=== PATIENT | female | born 1970 | race Caucasian/White ===

== ENCOUNTER 2020-08-29 14:12 | Outpatient (CLI) | payer MEDICAID, SELFPAY ==
--- NOTE | 2020-08-29 14:26 | CT_ITS ---
WS: [id number] TECHNIQUE: Noncontrast CT right hip with coronal and sagittal reformatted images. CLINICAL INFORMATION: RIGHT HIP PAIN COMPARISON: None. DLP: 811.[address] scans at [facility] use at least one of these dose optimization techniques: automat ed exposure control; mA and/or kV adjustment per patient size (includes targeted exams where dose is matched to clinical indication); or iterative reconstruction. FINDINGS: Advanced degenerative arthritis right hip with subchondral cystic change. Subchondral cystic change a nd sclerosis involving the anterosuperior femoral head and adjacent acetabulum. Hypertrophic spurring along the superior and inferior acetabulum. Complete loss of the joint space with [id number] artic ulation. Hypertrophic spurring along the femoral neck. Proximal femoral shaft appears normal. Again s een is the single acetabular fixation screw traversing the acetabulum and abutting the posterior femo ral head. Osteopenia. Normal visualized soft tissues. CT/CT hip RT wo con* [id number] IMPRESSION: 1. Advanced degenerative arthritis right hip with [id number] articulation an d subchondral cystic changes. 2. Again seen is the single fixation screw across the acetabulum abutting the posterior superior femoral head. 3. Normal visualized right pubic rami and proximal femoral shaft.
== END 2020-08-29 14:13 | disposition home or self-care (01) ==
LOC: RADWPI 14:14
PROVIDERS: PCP Physician Assistant; Visit Provider Physician Assistant
DX: M16.11 Unilateral primary osteoarthritis, right hip (principal)
CPT/HCPCS: 73700

== ENCOUNTER 2020-08-29 14:15 | Outpatient (CLI) | payer MEDICAID, SELFPAY ==
--- NOTE | 2020-08-29 14:25 | CT_ITS ---
WS: [id number] CT NECK TECHNIQUE: Contrast-enhanced CT of the neck with coronal and sagittal reformatted images. CLINICAL INFORMATION: NEOPLASM OF UNCERTAIN BEHAVIOR OF LARYNX COMPARISON: None. DLP: 1510.[address] scans at [facility] use at least one of these dose optimization techniques: automat ed exposure control; mA and/or kV adjustment per patient size (includes targeted exams where dose is matched to clinical indication); or iterative reconstruction. FINDINGS: Parotid glands are normal in appearance. Normal submandibular glands. Normal posterior nasopharynx an d parapharyngeal fat. Tongue base appears normal. No evidence of supraglottic or glottic mass. Subglo ttic airway is patent. Normal thyroid gland. Benign sole skiver muscle hypertrophy. No cervical lympha denopathy. Slightly prominent left greater than right jugulodigastric lymph nodes within normal limit s. Moderate spondylitic changes cervical spine. No cervical lymphadenopathy. No evidence of neck mass or drainable fluid collection. Partially visualized lung apices are normal. Partially visualized intracranial contents are normal. Paranasal sinuses and mastoid air cells well aerated. CT/CT neck w con* [id number] IMPRESSION: 1. Salivary glands are normal. 2. No cervical lymphadenopathy. 3. No evidence of supraglottic or glottic mass. Subglottic airway is normal. 4. Moderate spondylitic changes cervical spine. 5. Paranasal sinuses and mastoid air cells are well aerated.
[2020-08-29] MEDS: iohexol 300 mg/mL 100 mL Btl IV (14:44)
== END 2020-08-29 14:16 | disposition home or self-care (01) ==
LOC: RADWPI 14:16
PROVIDERS: PCP Physician Assistant; Visit Provider Otolaryngology
DX: D38.0 Neoplasm of uncertain behavior of larynx (principal)
CPT/HCPCS: 70491; Q9967

== ENCOUNTER 2021-01-11 15:48 | Outpatient (CLI) | payer MEDICAID, SELFPAY ==
--- NOTE | 2021-01-11 16:26 | ECG_ITS ---
[facility] Test Date: 2021-01-11 Pat Name: Celine Funes Department: Room: Gender: Female Heel Caser: : 1970 Requested By: Craig Shetty Order Number: [id number] Angie MD: Charlene Montoya M.D. Measurements Intervals [place] Rate: 75 P: 40 ND: 135 QRS: 15 QRSD: 92 T: 6 QT: 375 QTc: 419 Interpretive Statements SINUS RHYTHM WITH SINUS ARRHYTHMIA LOW QRS VOLTAGE IN PRECORDIAL LEADS [QRS DEFLECTION < 1.0 mV IN CHEST LEADS] No previous ECG available for comparison Electronically Signed On 01-13-2021 12:23:51 CDT by Charlene Montoya M.D. [id number]
[2021-01-11 16:51] LABS: Basophils # 0.1 10^3/uL (0.0-0.1); Basophils % 0.9 %; Eosinophils # 0.2 10^3/uL (0.0-0.8); Eosinophils % 1.9 %; Hemoglobin 14.5 g/dL (11.5-15.3); Lymphocytes # 3.6 10^3/uL (0.8-4.8); Lymphocytes % 44.2 %; Mean Corpuscular HGB Conc 32.2 g/dL (30.0-36.0); Mean Corpuscular Hemoglobin 30.5 pg (28.0-34.0); Mean Corpuscular Volume 94.5 fL (81-99); Mean Platelet Volume 9.2 fL (7.4-10.4); Monocytes # 0.5 10^3/uL (0.2-0.9); Neutrophils # 3.85 10^3/uL (1.8-7.7); Neutrophils % 46.8 %; Nucleated Red Blood Cells % 0 %; Platelet Count 310 10^3/cmm (130-400); Red Blood Count 4.76 10^6/uL (4.1-5.3); Red Cell Distribution Width 12.6 % (12.1-15.1); White Blood Count 8.2 10^3/uL (4.0-10.0)
[2021-01-11 17:19] LABS: Anion Gap 10.3 (5-19); Blood Urea Nitrogen 8 mg/dL (6-20); Calcium 8.5 mg/dL (8.5-10.5); Carbon Dioxide 30 mmol/L (22-29); Chloride 105 mmol/L (98-107); Glomerular Filtration Rate 87.9 mL/min (90-130); Glucose 95 mg/dL (65-115); Osmolality Calculated 290 mOsm/kg (285-295); Potassium 4.3 mmol/L (3.5-5.1); Sodium 141 mmol/L (136-145)
== END 2021-01-11 15:49 | disposition home or self-care (01) ==
PROVIDERS: PCP Physician Assistant; Visit Provider Specialist
DX: R49.0 Dysphonia (principal)
CPT/HCPCS: 36415; 80048; 85025; 93005

== ENCOUNTER → 2021-07-02 14:26 | Outpatient (BNVA) | payer MEDICAID, SELFPAY | PROVIDERS: PCP Physician Assistant; Referring Provider Physician Assistant; Visit Provider Orthopaedic Surgery | DX: M54.50 Low back pain, unspecified (principal); M43.17 Spondylolisthesis, lumbosacral region | CPT/HCPCS: 72110 ==

== ENCOUNTER 2021-08-28 13:16 | Outpatient (CLI) | payer MEDICAID, SELFPAY ==
--- NOTE | 2021-08-28 13:22 | MR_ITS ---
WS: [id number] MRI LUMBAR SPINE NONCONTRAST HISTORY: SPONDYLOLISTHESIS LUMBOSACRAL Region; pain COMPARISON: 07/16/2016 TECHNIQUE: Sagittal and axial multisequence imaging is submitted. Reversal the normal cervical lordosis encroaching upon the central cervical canal at the C4 level res ulting in mild central stenosis. L5 anterolisthesis by 10 mm similar to the prior examination. Severe disc space narrowing and desicca tion at L5-S1. The remaining disc spaces are well-maintained. No marrow edema. Conus terminates normally at T12. L1-L2: Normal. L2-L3: Mild bilateral facet joint arthritis. No stenosis. L3-L4: Mild bilateral facet joint arthritis and ligamentum flavum hypertrophy. L4-L5: Mild bilateral facet joint arthritis and ligamentum flavum hypertrophy. L5-S1: Unroofing of the L5-S1 disc by anterolisthesis of L5. Patulous central canal. Severe narrowing of the neural foramen bilaterally but greatest on the RIGHT. Complete effacement of fat in the neura l foramen. There is disc contacting and encroachment upon the L5 nerve roots bilaterally. Paravertebral soft tissues are normal. There is a bulbous appearance to the fundus of the uterus with the endometrium disc being displaced. I suspect there could be a fibroid present towards the fundus of the uterus. This should be further evaluated by ultrasound. MR/MR lumbar spine wo con* [id number] IMPRESSION: 1. Grade 2 spondylolisthesis of L5 with severe bilateral foraminal stenosis, R IGHT greater than LEFT. Similar to the prior examination. Significant encroachm ent upon the L5 nerve roots. 2. Bulbous appearance to the fundus of the uterus and displacement of the endo metrium. Suspect there probably is a fibroid present. Recommend transvaginal pe lvic ultrasound evaluation.
== END 2021-08-28 13:17 | disposition home or self-care (01) ==
LOC: RADSHAW 13:20
PROVIDERS: PCP Physician Assistant; Visit Provider Orthopaedic Surgery
DX: M43.17 Spondylolisthesis, lumbosacral region (principal)
CPT/HCPCS: 72148

== ENCOUNTER → 2022-01-30 13:27 | Outpatient (BNVA) | payer MEDICAID, SELFPAY | PROVIDERS: PCP Family Medicine; Visit Provider Internal Medicine Pulmonary Disease | DX: R06.00 Dyspnea, unspecified (principal); Z71.6 Tobacco abuse counseling; R49.0 Dysphonia; J35.1 Hypertrophy of tonsils; F17.210 Nicotine dependence, cigarettes, uncomplicated; I10 Essential (primary) hypertension; E11.8 Type 2 diabetes mellitus with unspecified complications | CPT/HCPCS: 99204 ==

== ENCOUNTER 2022-03-12 13:22 | Outpatient (CLI) | payer MEDICAID, SELFPAY ==
--- NOTE | 2022-03-12 14:10 | PFTS_ITS ---
Date of Study:03/12/22 Date of Dictation: MECHANICS: Forced vital capacity (FVC) is normal. Forced expiratory volume in one second (FEV1) is normal. FEV1/FVC is . FLOW VOLUME LOOP: There is no peak flow in the forced expiratory maneuver. LUNG VOLUMES: Total lung capacity (TLC) is increased. Residual volume (RV) is increased. DIFFUSING CAPACITY FOR CARBON MONOXIDE: Normal. INTERPRETATION: The postbronchodilator spirometry is normal. There is a significant postbronchodilator response. Lung volumes are consistent with hyperinflation and air trapping. Gas exchange (DLCO) is normal. MTDD
== END 2022-03-12 13:23 | disposition home or self-care (01) ==
LOC: RT 13:22
PROVIDERS: PCP Family Medicine; Visit Provider Internal Medicine Pulmonary Disease
DX: R06.00 Dyspnea, unspecified (principal); F17.210 Nicotine dependence, cigarettes, uncomplicated
CPT/HCPCS: 94060; 94618; 94726; 94729; J7614

== ENCOUNTER 2022-03-25 19:54 | Emergency (ER) | payer MEDICAID, SELFPAY ==
--- NOTE | 2022-03-25 19:56 | ED_ITS ---
HPI - SOB/Dyspnea General: Chief Complaint: Shortness of Breath/Dyspnea Stated Complaint: SOB Time Seen by Provider: 03/25/22 19:55 History of Present Illness: HPI Narrative: Ms. Funes is a 51-year-old lady with history of anxiety, COPD, hypertension, obesity, sleep apnea, diabetes, arthritis who presents to the emergency department due to shortness of breath and hoarse voice. She recently had PFTs which demonstrated increased TLC and residual volume. She endorses 3 to 4 days of worsening respiratory symptoms including cough, reflux sensation, and generalized malaise. Denies associated fevers. Cough has been nonproductive and she describes an uncomfortable bronchial sensation. She previously has seen ENT and is awaiting referral to outside facility for possible vocal cord/laryngeal dysfunction. Overall course of symptoms has persisted. I ntensity is moderate. No other specific changes in health, exacerbating, or alleviating factors identified. Onset (ago): day(s) Severity: moderate Exacerbating factors: exertion Known history of: COPD Associated symptoms: Reports cough and other Review of Systems General: Reports: 10 or more systems reviewed and unremarkable except in HPI and below PFSH ED PFSH: Medical History COPD (chronic obstructive pulmonary disease) Hemoptysis Sleep apnea Family History Mother Cushings syndrome Grandmother Cancer maternal grandmother; breast Social History Smoking and tobacco status: current every day smoker Physical Exam Const: COMMON NORMALS: alert GENERAL APPEARANCE: cooperative and well developed HENMT: COMMON NORMALS: normocephalic, atraumatic and oropharynx normal HEAD & SCALP: normocephalic and atraumatic Eye: COMMON NORMALS: conjunctivae normal CONJUNCTIVA: Yes conjunctivae normal SCLERA: sclerae normal Neck/C-Spine: COMMON NORMALS: supple GENERAL: Yes trachea midline Resp: EFFORT & INSPECTION: Yes able to speak in complete sentences and Yes tachypneic AUSCULTATION: diminished lung sounds Cardio: COMMON NORMALS: regular rate and regular rhythm RATE: regular rate RHYTHM: regular rhythm GI: COMMON NORMALS: Soft to palpation PALPATION: Yes Soft to palpation and No Tenderness to palpation present (GI) Extremity: GENERAL: Yes normal exam except as noted and No edema Neuro: COMMON NORMALS: moves all extremities SENSORIUM/ORIENTATION: Yes alert and No Orientation impaired Psych: COMMON NORMALS: mental status grossly normal and Normal thought process present THOUGHT PROCESS: Normal thought process present Course ED course: - Patient was seen and evaluated by me at bedside - Patient placed on cardiac monitors, IV access obtained - Initial evaluation notable for exam as above, nontoxic appearance, room air - Labs and xrays personally interpreted by me. EKG with sinus rhythm and multiple ST segment antibodies. -RT treatment, fluids, COPD exacerbation medications ordered - Labs notable for mild leukocytosis and hemoconcentration. ABG with compensated mild hypercapnia and hypoxemia. No acute electrolyte or metabolic derangements. Flu and COVID negative. - Imaging notable for pneumothorax lobar consolidation - Upon serial reexamination after treatment the patient was improved - Based on patient history, evaluation, and testing as interpreted the most likely cause of the patient's condition is bronchitis/COPD exacerbation. Low risk by heart score and more likely explaination felt to be COPD. - The results of ED evaluation were discussed with the patient including prescriptions and/or symptomatic cares (if applicable) including appropriate and responsible use, followup plan, and return precautions. The patient verbalized understanding and felt safe for discharge. - Patient discharged in satisfactory condition. Note: Click bubbles or prepopulated chambers in note writing are used for assistance with data collection and billing and are inherently more limited than narrative and other text portions of this note. Please use narrative for additional cl inical history and defer to narrative/free test for any case of contradictory information. If information appears in only free text or click bubble it should be considered present or absent as reported. Please contact note typewriter operator automatic for clarifications of clinical information or contradictory information. MDM is a brief summary, contradictory or erroneous seeming information should be clarified and full note should be reviewed. Vital Signs: Vital signs: Vital Signs Temperature 98.7 F 03/25/22 23:41 Pulse Rate 78 03/25/22 23:41 Respiratory Rate 20 H 03/25/22 23:41 Blood Pressure 116/66 03/25/22 23:41 Pulse Oximetry 95 03/25/22 23:41 Oxygen Delivery Md thod 03/25/22 20:35 MDM - SOB/Dyspnea Medical Decision Making 52-year lady presenting with cough and chest discomfort. Patient has history of COPD. Improved with treatment. Satisfactory for outpatient management of bronchitis/COPD exacerbation. Medical Records I reviewed the patient's medical records. Lab Data I reviewed the patient's lab results. : 03/25/22 20:02 03/25/22 20:02 Labs/Radiology: Radiology Impressions Chest X-Ray 03/25/22 20:28 IMPRESSION: No acute findings. Laboratory Results WBC 11.0 10^3/uL (4.0-10.0) H 03/25/22 20:02 RBC 5.15 10^6/uL (4.1-5.3) 03/25/22 20:02 Hgb 15.5 g/dL (11.5-15.3) H 03/25/22 20: Hct 46.3 % (37.0-47.0) 03/25/22 20: MCV 89.9 fl (81-99) 03/25/22 20: MCH 30.1 pg (28.0-34.0) 03/25/22 20: MCHC 33.5 g/dL (30.0-36.0) 03/25/22 20: RDW 12.5 % (12.1-15.1) 03/25/22 20: Plt Count 317 10^3/cmm (130-400) 03/25/22 20: MPV 9.9 fL (7.4-10.4) 03/25/22 20:02 Neut % (Auto) 45.3 % 03/25/22 20: Lymph % (Auto) 45.6 % 03/25/22 20: Gregg % (Auto) 6.2 % 03/25/22 20: Eos % (Auto) 1.8 % 03/25/22 20: Baso % (Auto) 0.9 % 03/25/22 20:02 Neut # (Auto) 5.00 10^3/uL (1.8-7.7) 03/25/22 20: Lymph # (Auto) 5.0 10^3/uL (0.8-4.8) H 03/25/22 20:02 Gregg # (Auto) 0.7 10^3/uL (0.2-0.9) 03/25/22 20:02 Eos # (Auto) 0.2 10^3/uL (0.0-0.8) 03/25/22 20:02 Baso # (Auto) 0.1 10^3/uL (0.0-0.1) 03/25/22 20:02 Nucleated RBC % (auto) 0 % 03/25/22 20:02 Nucleated RBCs # 0.0 /100WBC 03/25/22 20:02 Specimen Type Arterial 03/25/22 23:01 Sample Site Brachial, right 03/25/22 23:01 ABG pH 7.38 (7.35-7.45) 03/25/22 23:01 ABG pCO2 47.3 mmHg (35-45) H 03/25/22 23:01 ABG pO2 69.5 mmHg (80.0-100.0) L 03/25/22 23:01 ABG HCO3 28.0 mmol/L (22-26) H 03/25/22 23:01 ABG Base Excess 2.1 mmol/L (-2.0-2.0) H 03/25/22 23:01 Simon Test Pos 03/25/22 23:01 Hematocrit 46.6 % (37-47) 03/25/22 23:01 O2 Delivery Device None 03/25/22 23:01 Heel Seat Flap Stapler ID Hensa 03/25/22 23:01 Sodium 139 mmol/L (136-145) 03/25/22 20:02 Potassium 4.0 mmol/L (3.5-5.1) 03/25/22 20:02 Chloride 102 mmol/L (98-107) 03/25/22 20:02 Carbon Dioxide 28 mmol/L (22-29) 03/25/22 20:02 Anion Gap 13.0 (5-19) 03/25/22 20:02 BUN 8 mg/dL (6-20) 03/25/22 20:02 Creatinine 0.6 mg/dL (0.5-0.9) 03/25/22 20:02 GFR Calculation 104.6 mL/min (90-130) 03/25/22 20:02 Glucose 97 mg/dL (65-115) 03/25/22 20:02 Calculated Osmolality 286 mOsm/kg (285-295) 03/25/22 20:02 Calcium 9.3 mg/dL (8.5-10.5) 03/25/22 20:02 Total Bilirubin 0.3 mg/dL (0.15-1.2) 03/25/22 20:02 AST 13 U/L (0-32) 03/25/22 20:02 ALT 7 U/L (0-33) 03/25/22 20:02 Alkaline Phosphatase 96 IU/L (35-105) 03/25/22 20:02 Troponin T Baseline 6 ng/L (0-10) 03/25/22 20:02 Troponin T 120 Minute 6.53 ng/L (0-10) 03/25/22 22:20 Delta Troponin T 0.53 ABS# (0-10) 03/25/22 22:20 NT-Pro-B Natriuret Pep 57 pg/mL (0-125) 03/25/22 20:02 Total Protein 6.8 g/dL (6.6-8.7) 03/25/22 20:02 Albumin 3.6 g/dL (3.5-5.2) 03/25/22 20:02 Globulin 3.2 g/dL (1.3-4.6) 03/25/22 20:02 Lipase 13 U/L (13-60) 03/25/22 20:02 Influenza Type A Ag Negative (Negative) 03/25/22 20:46 Influenza Type B Ag Negative (Negative) 03/25/22 20:46 SARS-CoV-2 Ag (Rapid) Negative (Negative) 03/25/22 20:46 Discharge Plan Discharge Patient Disposition: Home Clinical Impression: Acute exacerbation of chronic obstructive airways disease, Bronchitis Condition: Stable Prescriptions: New albuterol sulfate 90 mcg/actuation HFA aerosol inhaler 2 inh inhalation Q4H PRN (Reason: shortness of breath or wheezing) Qty: 8.5 0RF No Action gabapentin 600 mg tablet 600 mg PO TID clonazepam 0.5 mg tablet 0.5 mg PO TID albuterol sulfate 90 mcg/actuation HFA aerosol inhaler 2 puff inhalation Q6H PRN (Reason: Shortness Of Breath) famotidine 20 mg tablet 20 mg PO BEDTIME dexlansoprazole 60 mg capsule,biphase delayed releas 60 mg PO DAILY Discharge Orders: Discharge ED (Routine); Ordered 03/25/22 Ordered By: Miguel Kolm Referrals: Lilly Beck MD [Primary Care Provider] - Discharge Diet: Usual diet Discharge Activity: Increase activity as tolerated Patient Instructions: Acute Bronchitis (ED), COPD (Chronic Obstructive Pulmonary Disease) (ED), Opioid Safety Activity Restrictions/Additional Instructions: Thank you for visiting the emergency department. You were seen and evaluated for shortness of breath and cough. The exact cause of your symptoms is unclear though likely related to either exacerbation of COPD or bronchitis. This is treated with antibiotics and steroids. Additionally please use your albuterol inhaler 2 puffs every 4 hours for 24 hours followed by 2 puffs every 6 hours for 24 hours followed by 2 puffs every 8 hours for 24 hours and then resume normal schedule. Also please ensure that you are staying hydrated. 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
[2022-03-25 20:01] VITALS: BP 134/79; PULSE 82; RESP 18; O2SAT 94; BMI 43.9
--- NOTE | 2022-03-25 20:28 | XRR_ITS ---
PROCEDURE INFORMATION: Exam: XR Chest Exam date and time: 03/25/2022 8:40 PM Age: 51 years old Clinical indication: Shortness of breath; Additional info: Cough, SOB TECHNIQUE: Imaging protocol: Radiologic exam of the chest. Views: 1 view. COMPARISON: CT chest w con* [id number] 01/24/2019 2:28 PM FINDINGS: Lungs: Unremarkable. No consolidation. Pleural spaces: Unremarkable. No pleural effusion. No pneumothorax. Heart/Mediastinum: Unremarkable. No cardiomegaly. Bones/joints: Unremarkable. XR/XR chest 1V portable [id number] IMPRESSION: No acute findings.
--- NOTE | 2022-03-25 20:29 | ECG_ITS ---
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 Measurements Intervals [place] Rate: 74 P: 26 [place]: 132 QRS: 9 QRSD: 88 T: 5 QT: 374 QTc: 416 Interpretive Statements SINUS RHYTHM WITH SINUS ARRHYTHMIA LOW QRS VOLTAGE IN PRECORDIAL LEADS [QRS DEFLECTION < 1.0 mV IN CHEST LEADS] POSSIBLE RIGHT VENTRICULAR CONDUCTION DELAY [RSR (QR) IN V1/V2] Compared to ECG 01/11/2021 16:21:27 No significant changes Electronically Signed On 03-26-2022 16:31:58 CDT by Darren García M.D. [id number]
[2022-03-25 20:35] VITALS: PULSE 76; O2SAT 98
[2022-03-25 20:37] LABS: Basophils # 0.1 10^3/uL (0.0-0.1); Basophils % 0.9 %; Eosinophils # 0.2 10^3/uL (0.0-0.8); Eosinophils % 1.8 %; Hematocrit 46.3 % (37.0-47.0); Hemoglobin 15.5 g/dL (11.5-15.3); Lymphocytes % 45.6 %; Mean Corpuscular HGB Conc 33.5 g/dL (30.0-36.0); Mean Corpuscular Hemoglobin 30.1 pg (28.0-34.0); Mean Corpuscular Volume 89.9 fl (81-99); Mean Platelet Volume 9.9 fL (7.4-10.4); Monocytes # 0.7 10^3/uL (0.2-0.9); Monocytes % 6.2 %; Neutrophils % 45.3 %; Nucleated Red Blood Cells % 0 %; Platelet Count 317 10^3/cmm (130-400); Red Blood Count 5.15 10^6/uL (4.1-5.3); Red Cell Distribution Width 12.5 % (12.1-15.1)
[2022-03-25 20:53] LABS: Troponin(5th) Baseline 6 ng/L (0-10)
[2022-03-25 21:01] LABS: Alanine Aminotransferase 7 U/L (0-33); Albumin Level 3.6 g/dL (3.5-5.2); Alkaline Phosphatase 96 IU/L (35-105); Aspartate Amino Transferase 13 U/L (0-32); Blood Urea Nitrogen 8 mg/dL (6-20); Calcium 9.3 mg/dL (8.5-10.5); Carbon Dioxide 28 mmol/L (22-29); Chloride 102 mmol/L (98-107); Globulin 3.2 g/dL (1.3-4.6); Glomerular Filtration Rate 104.6 mL/min (90-130); Glucose 97 mg/dL (65-115); Lipase 13 U/L (13-60); NT Pro B Type Natriuretic Pept 57 pg/mL (0-125); Osmolality Calculated 286 mOsm/kg (285-295); Sodium 139 mmol/L (136-145); Total Bilirubin 0.3 mg/dL (0.15-1.2); Total Protein 6.8 g/dL (6.6-8.7)
[2022-03-25 21:17] LABS: Influenza A by IFA Negative (Negative); Influenza B by IFA Negative (Negative)
[2022-03-25 21:19] LABS: SARS Covid-2 Antigen Negative (Negative)
--- NOTE | 2022-03-25 22:29 | ECG_ITS ---
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 Measurements Intervals [place] Rate: 68 P: -4 [place]: 137 QRS: 21 QRSD: 90 T: 5 QT: 368 QTc: 392 Interpretive Statements SINUS RHYTHM LOW QRS VOLTAGE IN PRECORDIAL LEADS [QRS DEFLECTION < 1.0 mV IN CHEST LEADS] POSSIBLE RIGHT VENTRICULAR CONDUCTION DELAY [RSR (QR) IN V1/V2] Compared to ECG 03/25/2022 21:11:08 Sinus arrhythmia no longer present Electronically Signed On 03-26-2022 16:40:09 CDT by Darren García M.D. [id number]
[2022-03-25] MEDS: sodium chloride 0.9% 1,000 ML 999 ML IV (22:30)
[2022-03-25 22:40] VITALS: BP 123/69; PULSE 78; RESP 18; O2SAT 94
[2022-03-25] MEDS: nicotine 14 mg Patch 1 PATCH TRANSDERMA (22:41)
[2022-03-25] MEDS: ketorolac 30 mg/mL INJ 15 MG IVP (22:41)
[2022-03-25 23:08] LABS: ABG PCO2 47.3 mmHg (35-45); ABG PH Result 7.38 (7.35-7.45); Arterial Blood Gas Hematocrit 46.6 % (37-47); Base Excess ABG 2.1 mmol/L (-2.0-2.0); Blood Gas Allen Test Pos; Blood Gas Sample Site Brachial, right; Blood Gas Sample Type Arterial; PO2 ABG 69.5 mmHg (80.0-100.0)
[2022-03-25 23:09] LABS: Troponin 5 2HR 6.53 ng/L (0-10)
[2022-03-25 23:18] LABS: Troponin 5 2HR Delta 0.53 ABS# (0-10)
[2022-03-25 23:41] VITALS: BP 116/66; PULSE 78; RESP 20; TEMP 37.1; O2SAT 95
[2022-03-25] MEDS: oxyCODONE 5 mg IR Tab/Cap PO (23:41)
[2022-03-25] MEDS: doxycycline 100 mg Tablet PO (23:41)
== END 2022-03-25 23:44 | disposition home or self-care (01) ==
PROVIDERS: Emergency Provider Emergency Medicine; PCP Family Medicine
DX: J44.1 Chronic obstructive pulmonary disease with (acute) exacerbation (principal); F17.210 Nicotine dependence, cigarettes, uncomplicated; Z20.822 Contact with and (suspected) exposure to COVID-19
CPT/HCPCS: 36600; 71045; 80053; 82803; 83690; 83880; 84484; 85025; 87426; 87804; 93005; 96374; 96375; 99285; J1885; J2930; J7030

== ENCOUNTER → 2022-04-03 14:25 | Outpatient (BNVA) | payer MEDICAID, SELFPAY | PROVIDERS: PCP Family Medicine; Visit Provider Internal Medicine | DX: R06.00 Dyspnea, unspecified (principal) | CPT/HCPCS: 99203; 99204 ==

== ENCOUNTER 2023-07-10 10:16 | Outpatient (CLI) | payer MEDICAID, SELFPAY ==
--- NOTE | 2023-07-10 10:56 | CT_ITS ---
WS: [id number] CT NECK TECHNIQUE: Contrast-enhanced CT of the neck with coronal and sagittal reformatted images. CLINICAL INFORMATION: CHRONIC LARYNGITIS COMPARISON: None. DLP: 230.[address] scans at [facility] use at least one of these dose optimization techniques: automated e xposure control; mA and/or kV adjustment per patient size (includes targeted exams where dose is matc hed to clinical indication); or iterative reconstruction. FINDINGS: Mastoid air cells are well aerated. Paranasal sinuses are well aerated. Normal posterior nasopharynx. Normal parapharyngeal fat. Normal parotid glands. Normal submandibular glands. No focal mass or lesi on. Normal posterior nasopharynx. Normal parapharyngeal fat. No evidence of supraglottic or glottic m ass. Few tiny thyroid nodules. Lung apices are well aerated. No cervical lymphadenopathy. Moderate spondylitic changes cervical spin e. Mild central canal stenosis C4-C5 and C5-C6. Slight medial deviation of the RIGHT vocal cord can be seen with vocal cord paralysis. Recommend miguel elation with endoscopy. No other suspicious findings. IMPRESSION: 1. Slight medial deviation of the RIGHT vocal cord can be seen with vocal cord paralysis. Recommend correlation with endoscopy. No other suspicious findings. 2. No evidence of supraglottic or glottic mass. 3. No cervical lymphadenopathy. 4. A Few tiny thyroid nodules.
[2023-07-10] MEDS: iohexol 350 mg/mL 500 mL Btl (per mL) IV (11:35)
== END 2023-07-10 10:17 | disposition home or self-care (01) ==
LOC: RAD 10:17
PROVIDERS: PCP Family Medicine; Visit Provider Specialist
DX: J37.0 Chronic laryngitis (principal); J38.01 Paralysis of vocal cords and larynx, unilateral; E04.1 Nontoxic single thyroid nodule
CPT/HCPCS: 70491; Q9967

== ENCOUNTER 2024-06-21 01:10 | Emergency (ER) | payer MEDICAID, SELFPAY ==
[2024-06-21] VITALS (11 sets, daily range): BP systolic 118–147; BP diastolic 78–86; PULSE 70–83; RESP 17–20; TEMP 36.6; O2SAT 93–98; BMI 47.0
--- NOTE | 2024-06-21 01:14 | ECG_ITS ---
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 Measurements Intervals [place] Rate: 66 P: 40 [place]: 137 QRS: 41 QRSD: 93 T: 26 QT: 405 QTc: 426 Interpretive Statements SINUS RHYTHM LOW QRS VOLTAGE IN PRECORDIAL LEADS [QRS DEFLECTION < 1.0 mV IN CHEST LEADS] POSSIBLE RIGHT VENTRICULAR CONDUCTION DELAY [RSR (QR) IN V1/V2] Compared to ECG 03/25/2022 22:20:04 No significant changes Electronically Signed On 06-22-2024 01:04:55 CDT by Ben Smith M.D. [id number]
--- NOTE | 2024-06-21 01:22 | W.ED.SOB ---
HPI - SOB/Dyspnea General: Chief Complaint: Shortness of Breath/Dyspnea Stated Complaint: sob Time Seen by Provider: 06/21/24 01:10 History of Present Illness: HPI Narrative: 54-year-old female with a history of COPD, tobacco dependence, obesity and obstructive sleep apnea who presents emergency room by ambulance with left lateral rib and lung pain and shortness of breath. She has had increased cough for last couple of days. She has been more short of breath. She said she felt a pop in her left side and now has had severe pain there with breathing. She says she might of had some fevers at home that she felt warm but does not have a thermometer. She is not requiring any oxygen. 96% on room air on presentation. She does not appear in any distress. No nausea or vomiting. No abdominal pain. No lower extremity swelling. Related Data Home Medications Medication Instructions Recorded Confirmed albuterol sulfate 90 mcg/actuation 2 puff inhalation Q6H PRN 01/30/22 10/27/22 aerosol inhaler Shortness Of Breath clonazepam 0.5 mg tablet 0.5 mg PO TID 01/30/22 10/27/22 gabapentin 600 mg tablet 600 mg PO TID 01/30/22 10/27/22 dexlansoprazole 60 mg 60 mg PO DAILY 03/25/22 10/27/22 capsule,biphase delayed release famotidine 20 mg tablet 20 mg PO BEDTIME 04/03/22 10/27/22 Previous Rx's Medication Instructions Recorded albuterol sulfate 90 mcg/actuation 2 inh inhalation Q4H PRN shortness 03/25/22 aerosol inhaler of breath or wheezing #8.5 grams tiotropium bromide 18 mcg capsule 1 cap inhalation DAILY #30 06/17/22 with inhalation device (Spiriva inhalations with HandiHaler) albuterol sulfate 2.5 mg/3 mL 2.5 mg (3 mL) inhalation Q6H #90 mL 10/27/22 (0.083 %) solution for nebulization amoxicillin 875 mg-potassium 1 tab PO BID #20 tabs 10/27/22 clavulanate 125 mg tablet prednisone 10 mg tablet See Rx Instructions PO DAILY #17 10/27/22 tabs hydrocodone 5 mg-acetaminophen 325 1 tab PO Q6H PRN pain #30 tabs 06/21/24 mg tablet ondansetron 8 mg disintegrating 8 mg PO Q6H #14 tabs 06/21/24 tablet polyethylene glycol 3350 17 17 g PO DAILY #510 grams 06/21/24 gram/dose oral powder (Miralax) Allergies Allergy/AdvReac Type Severity Reaction Status Date / Time No Known Allergies Allergy Verified 06/21/24 01:15 Review of Systems Narrative: Constitutional symptoms: Negative except as documented in HPI. Skin symptoms: Negative except as documented in HPI. Eye symptoms: Negative except as documented in HPI. ENMT symptoms: Negative except as documented in HPI. Respiratory symptoms: Negative except as documented in HPI. Cardiovascular symptoms: Negative except as documented in HPI. Gastrointestinal symptoms: Negative except as documented in HPI. Genitourinary symptoms: Negative except as documented in HPI. Musculoskeletal symptoms: Negative except as documented in HPI. Neurologic symptoms: Negative except as documented in HPI. Psychiatric symptoms: Negative except as documented in HPI. Endocrine symptoms: Negative except as documented in HPI. PFSH ED PFSH: Medical History COPD (chronic obstructive pulmonary disease) Hemoptysis Sleep apnea Family History Mother Cushings syndrome Grandmother Cancer maternal grandmother; breast Social History Smoking and tobacco/nicotine status: current every day tobacco/nicotine user Physical Exam Narrative: EXAM NARRATIVE: General: Alert, no acute distress. Skin: Warm, dry. Head: Normocephalic, atraumatic. Neck: Supple, trachea midline. Eye: Extraocular movements are intact. Ears, nose, mouth and throat: Oral mucosa moist. Cardiovascular: Regular rate and rhythm, Normal peripheral perfusion. Respiratory: some expiratory wheeze, mild increased wob, breath sounds are equal, Symmetrical chest wall expansion. Gastrointestinal: Soft, Nontender, Non distended, Normal bowel sounds. Musculoskeletal: Normal ROM, no deformity. Neurological: Alert and oriented to person, place, time, and situation, No focal neurological deficit observed. Psychiatric: Cooperative, appropriate mood & affect. Course Vital Signs: Vital signs: Vital Signs Temperature 97.9 F 06/21/24 01:10 Pulse Rate 73 06/21/24 05:00 Respiratory Rate 20 H 06/21/24 01:51 Blood Pressure 147/78 06/21/24 04:00 Pulse Oximetry 97 06/21/24 05:00 Oxygen Delivery Me thod Room Air 06/21/24 02:48 MDM - SOB/Dyspnea Medical Decision Making Differential diagnosis for patient with shortness of breath includes but is not limited to and based on the above HPI, review of systems and physical exam: Pneumonia. Bronchitis. Asthma or COPD with acute exacerbation. Acute coronary syndrome / SD. Pulmonary embolism. Anxiety. Congestive heart failure. Viral infections including influenza and Covid-19. Atrial fibrillation. Anxiety. Pleural effusion. Pneumothorax. Orders placed to evaluate differential diagnosis based on the above differential, HPI and physical exam EKG: Time 1:13 AM. Rate 66. Normal sinus rhythm, No ST-T changes, no ectopy, normal IN & QRS intervals, This was reviewed and interpreted by myself the ER physician at 1:15 AM Lab Review: Laboratory results were reviewed and interpreted by myself the emergency room physician. Lab work is unremarkable. No leukocytosis. No anemia. BUN and creatinine are 15 and 1. Serial troponins are negative. Chest x-ray: No acute process. No infiltrate. No pneumothorax. This was reviewed and interpreted by myself the ER physician. CT of the chest shows no acute cardiopulmonary findings but does have a mass in the right breast and possible metastatic disease and rib fractures at 9 and 10. This was reviewed and interpreted by myself the emergency room physician. I also reviewed the radiology report. CTA of the chest with PE protocol was ordered as it appears she has metastatic breast cancer to rule out pulmonary embolism. However I think likely her pain is from the posterior lateral rib fractures at 9 and 10. CTA shows no pulmonary embolism. She had does have a spiculated mass in her breast that needs workup. I discussed this with the patient she will follow with her primary and with oncology. Incentive spirometry prior to discharge Assessment and plan: Pathologic rib fracture Breast mass ?IV morphine and Zofran. Home on [place]. Discussed at length the follow-up that she needs to have done and that she should not delay on this. - Discharged home - Discussed plan with patient. Answered any questions. - Evaluation and treatment of this problem were appropriate in the emergency setting. Lab Data 06/21/24 01:35 06/21/24 01:35 Labs/Radiology: Radiology Impressions Chest X-Ray 06/21/24 01:50 IMPRESSION: No acute findings. Chest CT 06/21/24 02:11 IMPRESSION: 1. No acute cardiopulmonary findings. 2. Minimal left pleural effusion. 3. Questionable mass in the right breast. Further evaluation with right diagnostic mammogram and right breast ultrasound is recommended. 4. Acute or subacute oblique nondisplaced nonsegmental fractures of the posterolateral segments of left ribs 9 and 10. Multiple sclerotic lesions in the cervical, thoracic and lumbar vertebrae, concerning for metastatic disease. Clinical correlation is recommended. ADDENDUM: 06/21/24 0326 THIS REPORT CONTAINS FINDINGS THAT MAY BE CRITICAL TO PATIENT CARE. The findings and recommendations were verbally communicated via telephone conference with GINGER Rubio by Dr. Amezcua on 06/21/2024 at 3:25 AM CDT. The findings were acknowledged and understood. Chest CTA 06/21/24 03:29 IMPRESSION: 1. No pulmonary embolus. 2. Spiculated nodularity and masslike appearance of the right breast concerning for neoplasm. Proper workup with diagnostic mammogram and ultrasound is recommended. 3. Concerning findings for possible osseous metastatic disease. Acute/subacute nondisplaced nonsegmental fractures of the posterolateral left 9th and 10th ribs. Laboratory Results WBC 9.78 10^3/uL (3.29-11.43) 06/21/24 01:35 RBC 4.79 10^6/uL (3.85-5.65) 06/21/24 01:35 Hgb 14.10 g/dL (11.27-16.99) 06/21/24 01:35 Hct 44.8 % (36-47) 06/21/24 01:35 MCV 93.5 fl (85-98) 06/21/24 01:35 MCH 29.4 pg (27-33) 06/21/24 01:35 MCHC 31.5 g/dL (30-55) 06/21/24 01:35 RDW 14.0 % (12.1-15.1) 06/21/24 01:35 Plt Count 302 10^3/cmm (157-399) 06/21/24 01:35 MPV 8.5 fL (7.4-10.4) 06/21/24 01:35 Neut % (Auto) 46.6 % 06/21/24 01:35 Lymph % (Auto) 43.5 % 06/21/24 01:35 Randolph % (Auto) 6.3 % 06/21/24 01:35 Eos % (Auto) 2.6 % 06/21/24 01:35 Baso % (Auto) 0.8 % 06/21/24 01:35 Neut # (Auto) 4.56 10^3/uL (1.8-7.7) 06/21/24 01:35 Lymph # (Auto) 4.3 10^3/uL (0.8-4.8) 06/21/24 01:35 Randolph # (Auto) 0.6 10^3/uL (0.2-0.9) 06/21/24 01:35 Eos # (Auto) 0.3 10^3/uL (0.0-0.8) 06/21/24 01:35 Baso # (Auto) 0.1 10^3/uL (0.0-0.1) 06/21/24 01:35 Nucleated RBC % (auto) 0 % 06/21/24 01:35 Nucleated RBCs # 0.0 /100WBC 06/21/24 01:35 Sodium 144 mmol/L (136-145) 06/21/24 01:35 Potassium 3.8 mmol/L (3.5-5.1) 06/21/24 01:35 Chloride 104 mmol/L (98-107) 06/21/24 01:35 Carbon Dioxide 32 mmol/L (22-29) H 06/21/24 01:35 Anion Gap 11.8 (5-19) 06/21/24 01:35 BUN 15 mg/dL (6-20) 06/21/24 01:35 Creatinine 1.0 mg/dL (0.5-0.9) H 06/21/24 01:35 GFR Calculation 57.4 mL/min (90-130) L 06/21/24 01:35 Glucose 104 mg/dL (65-115) 06/21/24 01:35 Calculated Osmolality 299 mOsm/kg (285-295) H 06/21/24 01:35 Lactic Acid 1.2 mmol/L (0.5-2.2) 06/21/24 01:35 Calcium 8.9 mg/dL (8.5-10.5) 06/21/24 01:35 Total Bilirubin 0.2 mg/dL (0.15-1.2) 06/21/24 01:35 AST 21 U/L (0-32) 06/21/24 01:35 ALT 10 U/L (0-33) 06/21/24 01:35 Alkaline Phosphatase 174 U/L (35-105) H 06/21/24 01:35 Troponin T Baseline 10 ng/L (0-10) 06/21/24 01:35 Troponin T 120 Minute 6.00 ng/L (0-10) 06/21/24 03:42 Delta Troponin T -4.00 ABS# (0-10) L 06/21/24 03:42 C-Reactive Protein 22.6 mg/L (0.0-4.9) H 06/21/24 01:35 NT-Pro-B Natriuret Pep 61 pg/mL (0-125) 06/21/24 01:35 Total Protein 6.5 g/dL (6.6-8.7) L 06/21/24 01:35 Albumin 3.6 g/dL (3.5-5.2) 06/21/24 01:35 Globulin 2.9 g/dL (1.3-4.6) 06/21/24 01:35 Coronavirus (PCR) Negative (Negative) 06/21/24 01:41 Influenza A (PCR) Negative (Negative) 06/21/24 01:41 Influenza Type B (PCR) Negative (Negative) 06/21/24 01:41 RSV (PCR) Negative (Negative) 06/21/24 01:41 All radiology interpretation(s) finalized by discharge Discharge Plan Discharge Patient Disposition: Home Clinical Impression: Rib fractures, Breast mass Condition: Stable Prescriptions: New hydrocodone-acetaminophen 5-325 mg tablet 1 tab PO Q6H PRN (Reason: pain) Qty: 30 0RF ondansetron 8 mg tablet,disintegrating 8 mg PO Q6H Qty: 14 0RF Rx Instructions: Take 1/2-1 tab every 6 hours as needed for nausea and vomiting polyethylene glycol 3350 [Miralax] 17 gram/dose powder 17 g PO DAILY Qty: 510 0RF Rx Instructions: Take 1 scoop daily while taking pain medications. No Action gabapentin 600 mg tablet 600 mg PO TID clonazepam 0.5 mg tablet 0.5 mg PO TID albuterol sulfate 90 mcg/actuation HFA aerosol inhaler 2 puff inhalation Q6H PRN (Reason: Shortness Of Breath) famotidine 20 mg tablet 20 mg PO BEDTIME prednisone 10 mg tablet See Rx Instructions PO DAILY Qty: 17 0RF Rx Instructions: day 1-5 20mg; day 6-10 10mg; day 11-14 5mg orally daily; albuterol sulfate 2.5 mg /3 mL (0.083 %) solution for nebulization 2.5 mg inhalation Q6H Qty: 90 0RF Rx Instructions: Use every 4-6 hours as needed amoxicillin-pot clavulanate 875-125 mg tablet 1 tab PO BID Qty: 20 0RF Spiriva with HandiHaler 18 mcg capsule, w/inhalation device 1 cap inhalation DAILY Qty: 30 3RF Rx Instructions: puncture 1 cap using device; one dose = 2 inhalations dexlansoprazole 60 mg capsule,biphase delayed releas 60 mg PO DAILY albuterol sulfate 90 mcg/actuation HFA aerosol inhaler 2 inh inhalation Q4H PRN (Reason: shortness of breath or wheezing) Qty: 8.5 0RF Discharge Orders: Discharge ED (Routine); Ordered 06/21/24 Ordered By: Ginger Guerra Referrals: Levy Connors MD [Hospitalist] - 4-7 days (Please call for an appointment with the oncology service. Other Dr. Connors or another doctor there.) Lilly Beck MD [Primary Care Provider] - Discharge Diet: Usual diet Discharge Activity: Increase activity as tolerated Patient Instructions: Opioid Safety, Pain Management Activity Restrictions/Additional Instructions: Thank you for choosing [facility] for your healthcare needs today. Please realize this is an emergency room and that we are providing you with a medical screening exam and this may not be complete and all inclusive of all the testing and or work up that you may need to determine your ailment or severity of your illness. You have been screened and evaluated and felt safe for discharge. Health conditions do change or evolve sometimes and as such it is important that you follow up with your Primary Doctor to be re checked, 3-5 days is a general good time frame for follow up. You are always welcome to return to the ED for re assessment if your symptoms are worsening or you have new concerns Coding Level of Care Code ED Supervisor Curing Room for Hang Cooper
[2024-06-21 01:41] LABS: Basophils # 0.1 10^3/uL (0.0-0.1); Basophils % 0.8 %; Eosinophils # 0.3 10^3/uL (0.0-0.8); Eosinophils % 2.6 %; Hematocrit 44.8 % (36-47); Lymphocytes # 4.3 10^3/uL (0.8-4.8); Lymphocytes % 43.5 %; Mean Corpuscular HGB Conc 31.5 g/dL (30-55); Mean Corpuscular Hemoglobin 29.4 pg (27-33); Mean Corpuscular Volume 93.5 fl (85-98); Mean Platelet Volume 8.5 fL (7.4-10.4); Monocytes # 0.6 10^3/uL (0.2-0.9); Monocytes % 6.3 %; Neutrophils # 4.56 10^3/uL (1.8-7.7); Neutrophils % 46.6 %; Nucleated Red Blood Cells % 0 %; Platelet Count 302 10^3/cmm (157-399); Red Blood Count 4.79 10^6/uL (3.85-5.65); White Blood Count 9.78 10^3/uL (3.29-11.43)
--- NOTE | 2024-06-21 01:50 | XRR_ITS ---
PROCEDURE INFORMATION: Exam: XR Chest Exam date and time: 06/21/2024 1:56 AM Age: 54 years old Clinical indication: Chest wall pain; Additional info: Chest pain TECHNIQUE: Imaging protocol: Radiologic exam of the chest. Views: 1 view. COMPARISON: CR XR chest 1V portable [id number] 03/25/2022 8:40 PM FINDINGS: Lungs: No consolidation or pulmonary edema. Small dependent bibasilar atelectasis. Pleural spaces: No pleural effusion. No pneumothorax. Heart/Mediastinum: Cardiomediastinal silhouette is normal in size. Bones/joints: No acute fractures. XR/XR chest 1V portable [id number] IMPRESSION: No acute findings.
[2024-06-21 02:05] LABS: Lactic Sepsis W/Reflex 1.2 mmol/L (0.5-2.2)
[2024-06-21 02:06] LABS: Alanine Aminotransferase 10 U/L (0-33); Albumin Level 3.6 g/dL (3.5-5.2); Alkaline Phosphatase 174 U/L (35-105); Anion Gap 11.8 (5-19); Aspartate Amino Transferase 21 U/L (0-32); Blood Urea Nitrogen 15 mg/dL (6-20); C Reactive Protein 22.6 mg/L (0.0-4.9); Calcium 8.9 mg/dL (8.5-10.5); Carbon Dioxide 32 mmol/L (22-29); Chloride 104 mmol/L (98-107); Creatinine Clr Calc Pharmacy 70.4345; Globulin 2.9 g/dL (1.3-4.6); Glomerular Filtration Rate 57.4 mL/min (90-130); Glucose 104 mg/dL (65-115); Osmolality Calculated 299 mOsm/kg (285-295); Potassium 3.8 mmol/L (3.5-5.1); Sodium 144 mmol/L (136-145); Total Bilirubin 0.2 mg/dL (0.15-1.2); Total Protein 6.5 g/dL (6.6-8.7); Troponin(5th) Baseline 10 ng/L (0-10)
[2024-06-21] MEDS: ketorolac 30 mg/mL INJ IM (02:11)
--- NOTE | 2024-06-21 02:11 | CTR_ITS ---
PROCEDURE INFORMATION: Exam: CT Chest Without Contrast; Diagnostic Exam date and time: 06/21/2024 2:22 AM Age: 54 years old Clinical indication: Chest wall pain and left-sided; Additional info: Abnormal chest xray TECHNIQUE: Imaging protocol: Diagnostic computed tomography of the chest without contrast. Radiation optimization: All CT scans at this facility use at least one of these dose optimization techniques: automated exposure control; mA and/or kV adjustment per patient size (includes targeted exams where dose is matched to clinical indication); or iterative reconstruction. COMPARISON: CR (CHEST, ) 06/21/2024 1:56 AM RADIATION DOSE METRICS: Total DLP (mGy-cm): 831.44 FINDINGS: Lungs: No lobar consolidation, pulmonary edema, pulmonary hemorrhage, or lung mass. A 5 mm benign calcified granuloma in the left lung lower lobe. Pleural spaces: Minimal left pleural effusion. No pneumothorax or right pleural effusion. Heart: Heart size is normal. No pericardial effusion. Lymph nodes: Multiple calcified left hilar lymph nodes. No mediastinal or axillary lymphadenopathy. Vasculature: No thoracic aorta aneurysm. No coronary artery calcifications. Spleen: Multiple small calcifications in the spleen. No splenomegaly. Bones/joints: Acute or subacute oblique nondisplaced nonsegmental fractures of the posterolateral segments of left ribs 9 and 10. Multiple sclerotic lesions in the cervical, thoracic and lumbar vertebrae, concerning for metastatic disease. Soft tissues: Questionable mass in the right breast. Further evaluation with right diagnostic mammogram and right breast ultrasound is recommended. CT/CT chest wo con [id number] IMPRESSION: 1. No acute cardiopulmonary findings. 2. Minimal left pleural effusion. 3. Questionable mass in the right breast. Further evaluation with right diagnostic mammogram and right breast ultrasound is recommended. 4. Acute or subacute oblique nondisplaced nonsegmental fractures of the posterolateral segments of left ribs 9 and 10. Multiple sclerotic lesions in the cervical, thoracic and lumbar vertebrae, concerning for metastatic disease. Clinical correlation is recommended.
[2024-06-21 02:16] LABS: NT Pro B Type Natriuretic Pept 61 pg/mL (0-125)
[2024-06-21 02:20] LABS: Covid PCR NEGATIVE (Negative); Influenza A NEGATIVE (Negative); Influenza B NEGATIVE (Negative); Respiratory Syncytial Virus Ce NEGATIVE (Negative)
--- NOTE | 2024-06-21 03:29 | CTR_ITS ---
PROCEDURE INFORMATION: Exam: CTA Chest With Contrast Exam date and time: 06/21/2024 3:47 AM Age: 54 years old Clinical indication: Chest wall pain; Additional info: Chest pain, probable breast cacner TECHNIQUE: Imaging protocol: Computed tomographic angiography of the chest with contrast. Exam focused on the arteries. 3D rendering (Not supervised by radiologist): MIP and/or 3D reconstructed images were created by the technologist. Radiation optimization: All CT scans at this facility use at least one of these dose optimization techniques: automated exposure control; mA and/or kV adjustment per patient size (includes targeted exams where dose is matched to clinical indication); or iterative reconstruction. Contrast material: OMNI 350; Contrast volume: 75 ml; Contrast route: INTRAVENOUS (IV); COMPARISON: CT chest wo con [id number] 06/21/2024 2:22 AM RADIATION DOSE METRICS: Total DLP (mGy-cm): 580.77 FINDINGS: Pulmonary arteries: Normal. No pulmonary emboli. Aorta: Unremarkable. No aortic aneurysm. No aortic dissection. Lungs: Left lower lobe granuloma. Bibasilar scarring/atelectasis. Pleural spaces: Small left pleural effusion. Heart: Unremarkable. No cardiomegaly. No pericardial effusion. Lymph nodes: Calcified left hilar lymph nodes. Spleen: Multiple splenic granulomas. Bones/joints: Diffuse degenerative change of the visualized osseous structures. Diffuse heterogeneity of the axial skeleton with several defined sclerotic masses for example T7, T2. Acute/subacute non segmental fractures of the posterolateral segments of left 9th and 10th ribs. Soft tissues: Asymmetric soft tissue density of the right breast, demonstrates a spiculated type morphology at multiple locations. CT/CT angio chest PE protcl [id number] IMPRESSION: 1. No pulmonary embolus. 2. Spiculated nodularity and masslike appearance of the right breast concerning for neoplasm. Proper workup with diagnostic mammogram and ultrasound is recommended. 3. Concerning findings for possible osseous metastatic disease. Acute/subacute nondisplaced nonsegmental fractures of the posterolateral left 9th and 10th ribs.
[2024-06-21] MEDS: morphine 4 mg/mL SDV 1 mL IVP (03:43)
[2024-06-21] MEDS: ondansetron 2 mg/ML SDV 2 mL 4 MG IVP (03:44)
[2024-06-21] MEDS: iohexol 350 mg/mL 500 mL Btl (per mL) IV (03:58)
[2024-06-21] MEDS: famotidine 20 mg/2 mL INJ 40 MG IVP (05:33)
--- NOTE | 2024-06-21 05:48 | ECG_ITS ---
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 Measurements Intervals [place] Rate: 61 P: 33 VT: 136 QRS: 42 QRSD: 94 T: 21 QT: 414 QTc: 420 Interpretive Statements SINUS RHYTHM LOW QRS VOLTAGE IN PRECORDIAL LEADS [QRS DEFLECTION < 1.0 mV IN CHEST LEADS] Compared to ECG 06/21/2024 01:13:24 No significant changes Electronically Signed On 06-23-2024 01:02:18 CDT by Ben Smith M.D. [id number]
[2024-06-21] MEDS: HYDROcodone-acetaminophen 10-325 mg Tablet 1 TAB PO (05:56)
[2024-06-21] MEDS: LORazepam 1 mg Tablet PO (05:56)
--- NOTE | 2024-06-22 15:13 | DCPLANNER ---
Patient called - waiting on Dr Connors's office to call for follow up.
== END 2024-06-21 07:29 | disposition home or self-care (01) ==
PROVIDERS: Emergency Provider Emergency Medicine; PCP Family Medicine
DX: S22.42XA Multiple fractures of ribs, left side, initial encounter for closed fracture (principal); X58.XXXA Exposure to other specified factors, initial encounter; N63.10 Unspecified lump in the right breast, unspecified quadrant; Z11.52 Encounter for screening for COVID-19; Z72.0 Tobacco use; J44.9 Chronic obstructive pulmonary disease, unspecified
CPT/HCPCS: 0241U; 36415; 71045; 71250; 71275; 80053; 83605; 83880; 84484; 85025; 86140; 87040; 93005; 96372; 96374; 96375; 99285; J1885; J2270; J2405; J3490

== ENCOUNTER 2024-08-04 17:42 | Emergency (ER) | payer MEDICAID, SELFPAY ==
[2024-08-04] VITALS (8 sets, daily range): BP systolic 117–140; BP diastolic 84–111; PULSE 82–92; RESP 16–18; TEMP 36.6; O2SAT 95–98
[2024-08-04 19:22] LABS: Basophils # 0.1 10^3/uL (0.0-0.1); Basophils % 0.7 %; Eosinophils # 0.3 10^3/uL (0.0-0.8); Eosinophils % 2.4 %; Lymphocytes # 4.6 10^3/uL (0.8-4.8); Lymphocytes % 41.7 %; Mean Corpuscular HGB Conc 32.8 g/dL (30-55); Mean Corpuscular Volume 91.3 fl (85-98); Mean Platelet Volume 8.6 fL (7.4-10.4); Monocytes # 0.8 10^3/uL (0.2-0.9); Neutrophils # 5.33 10^3/uL (1.8-7.7); Nucleated Red Blood Cells % 0 %; Platelet Count 379 10^3/cmm (157-399); Red Blood Count 5.04 10^6/uL (3.85-5.65); Red Cell Distribution Width 14.2 % (12.1-15.1); White Blood Count 11.12 10^3/uL (3.29-11.43)
[2024-08-04 19:36] LABS: Alanine Aminotransferase 10 U/L (0-33); Albumin Level 3.9 g/dL (3.5-5.2); Alkaline Phosphatase 208 U/L (35-105); Anion Gap 15.3 (5-19); Aspartate Amino Transferase 25 U/L (0-32); Blood Urea Nitrogen 13 mg/dL (6-20); Calcium 9.7 mg/dL (8.5-10.5); Carbon Dioxide 26 mmol/L (22-29); Chloride 100 mmol/L (98-107); Creatinine Clr Calc Pharmacy 95.2227; Globulin 3.1 g/dL (1.3-4.6); Glomerular Filtration Rate 86.6 mL/min (90-130); Glucose 88 mg/dL (65-115); Osmolality Calculated 284 mOsm/kg (285-295); Potassium 4.3 mmol/L (3.5-5.1); Sodium 137 mmol/L (136-145); Total Bilirubin 0.2 mg/dL (0.15-1.2)
--- NOTE | 2024-08-04 20:04 | CTR_ITS ---
PROCEDURE INFORMATION: Exam: CT Head Without Contrast Exam date and time: 08/04/2024 8:24 PM Age: 54 years old Clinical indication: Pain; Headache; Additional info: Headaches, last cta suspicious for metastatic breast cancer TECHNIQUE: Imaging protocol: Computed tomography of the head without contrast. Radiation optimization: All CT scans at this facility use at least one of these dose optimization techniques: automated exposure control; mA and/or kV adjustment per patient size (includes targeted exams where dose is matched to clinical indication); or iterative reconstruction. COMPARISON: CT neck w con* [id number] 07/10/2023 11:13 AM RADIATION DOSE METRICS: Total DLP (mGy-cm): 1084.85 FINDINGS: Brain: Normal. No hemorrhage, mass effect or midline shift. Cerebral ventricles: Ventricles are normal in size and position. Paranasal sinuses: Visualized sinuses are unremarkable. No fluid levels. Mastoid air cells: Visualized mastoid air cells are well aerated. Bones: Unremarkable. No acute fracture. Soft tissues: Unremarkable. CT/CT head wo con* [id number] IMPRESSION: No acute intracranial abnormality.
--- NOTE | 2024-08-04 20:06 | ED_ITS ---
HPI - General Adult 2 General: Chief complaint: General Medical Stated complaint: all over pain x6 weeks Time Seen by Provider: 08/04/24 19:46 Source: patient Mode of arrival: EMS Limitations: no limitations History of Present Illness: Patient is a 54-year-old female presents to the ED today with a complaint of pain everywhere . Patient was seen in our facility approximately 6 weeks ago. At that point she had CT imaging that was suspicious for metastatic breast cancer. Results of her CT scan below: IMPRESSION: 1. No acute cardiopulmonary findings. 2. Minimal left pleural effusion. 3. Questionable mass in the right [address]. Further evaluation with right diagnostic mammogram and right breast ultrasound is recommended. 4. Acute or subacute oblique nondispla kvng nonsegmental fractures of the posterolateral segments of left ribs 9 and 10. Multiple sclerotic lesions in the cervical, thoracic and lumbar vertebrae, concerning for metastatic disease. Clinical correlation is recommended. Patient states she hurts all throughout her back. She has been having headaches for months and is tearful thinking that the cancer has probably spread to her brain. She wants this evaluated today. She states she did undergo breast mammogram and ultrasound through [facility]. She states she is not sure of the results but they did refer her to [facility] for a biopsy. She unfortunately has no ride to [place] and is wondering if we could do this through [facility]. She does have an appointment with our oncology department next Thursday. Patient states her home medication is not touching her pain. She continues to have pain in her left ribs. She was found to have fractures here on last visit. Onset (ago): week(s) Pain Consistency: constant Relieving factors: none Exacerbating factors: none Associated symptoms: Reports no associated symptoms, chest pain (L rib pain) and headache(s); Deny dyspnea, nausea, rash, palpitations, syncope or vomiting Treatments prior to arrival: other (prescription pain medication) Related Data Home Medications Medication Instructions Recorded Confirmed albuterol sulfate 90 mcg/actuation 2 puff inhalation Q6H PRN 01/30/22 10/27/22 aerosol inhaler Shortness Of Breath clonazepam 0.5 mg tablet 0.5 mg PO TID 01/30/22 10/27/22 gabapentin 600 mg tablet 600 mg PO TID 01/30/22 10/27/22 dexlansoprazole 60 mg 60 mg PO DAILY 03/25/22 10/27/22 capsule,biphase delayed release famotidine 20 mg tablet 20 mg PO BEDTIME 04/03/22 10/27/22 Previous Rx's Medication Instructions Recorded albuterol sulfate 90 mcg/actuation 2 inh inhalation Q4H PRN shortness 03/25/22 aerosol inhaler of breath or wheezing #8.5 grams tiotropium bromide 18 mcg capsule 1 cap inhalation DAILY #30 06/17/22 with inhalation device (Spiriva inhalations with HandiHaler) albuterol sulfate 2.5 mg/3 mL 2.5 mg (3 mL) inhalation Q6H #90 mL 10/27/22 (0.083 %) solution for nebulization amoxicillin 875 mg-potassium 1 tab PO BID #20 tabs 10/27/22 clavulanate 125 mg tablet prednisone 10 mg tablet See Rx Instructions PO DAILY #17 10/27/22 tabs hydrocodone 5 mg-acetaminophen 325 1 tab PO Q6H PRN pain #30 tabs 06/21/24 mg tablet ondansetron 8 mg disintegrating 8 mg PO Q6H #14 tabs 06/21/24 tablet polyethylene glycol 3350 17 17 g PO DAILY #510 grams 06/21/24 gram/dose oral powder (Miralax) Allergies Allergy/AdvReac Type Severity Reaction Status Date / Time No Known Allergies Allergy Verified 08/04/24 17:58 Review of Systems 2 Const: Reports: chills, fatigue and night sweats; Denies: fever(s) Eyes: Denies: change in vision or blurry vision Card: Reports: chest pain (L rib pain); Denies: palpitations, irregular heart rhythm, edema, lightheadedness, syncope or dyspnea on exertion Resp: Denies: dyspnea, productive cough, non-productive cough or pain on inspiration GI: Denies: abdominal pain, nausea, vomiting, heartburn or diarrhea : Denies: flank pain or dysuria Musc: Reports: neck pain and back pain; Denies: extremity pain, extremity swelling or joint pain Skin/Breast: Denies: rash Neuro: Reports: headache(s); Denies: numbness in extremities, weakness in extremities, sensory changes or dizziness PFSH ED 2 PFSH: Medical History Hemoptysis COPD (chronic obstructive pulmonary disease) Sleep apnea Family History Mother Cushings syndrome Grandmother Cancer maternal grandmother; breast Social History Smoking and tobacco/nicotine status: current every day tobacco/nicotine user Physical Exam 2 Const: COMMON NORMALS: patient oriented x3, no limitations and alert G ENERAL APPEARANCE: cooperative and anxious (tearful, intermittently crying due to her being scared of diagnosis) NUTRITIONAL APPEARANCE: obese O RIENTATION/CONSCIOUSNESS: Yes awake, Yes oriented to person, Yes oriented to place and Yes oriented to time HENMT: COMMON NORMALS: normocephalic and atraumatic HEAD & SCALP: normal to inspection, normocephalic and atraumatic FACE & SINUS: normal facial exam and face symmetric Eye: GENERAL EYE: appearance normal, both eyes and all related structures Neck/C-Spine: GENERAL: Yes normal visual inspection CERVICAL SPINE: Yes pain with cervical ROM, Yes Cervical spine tenderness and No step off deformity Chest: COMMONS NORMALS: normal inspection of the chest OTHER: TTP L lower ribs Resp: COMMON NORMALS: normal respiratory effort and clear to auscultation bilaterally AUSCULTATION: clear to auscultation bilaterally Cardio: COMMON NORMALS: regular rate and regular rhythm RATE: regular rate RHYTHM: regular rhythm GI: COMMON NORMALS: Soft to palpation and no masses INSPECTION: Yes normal to inspection AUSCULTATION: Yes normoactive bowel sounds PALPATION: Yes Soft to palpation and Yes Tenderness to palpation present (GI) Details: LUQ : COMMON NORMALS: Yes no CVA tenderness BLADDER/KIDNEY EXAM: Yes no CVA tenderness Back/Pelvis: COMMON NORMALS: no CVA tenderness THORACIC SPINE/UPPER BACK: Y es ROM limited, Yes pain with ROM and Yes thoracic spinal tenderness LUMBAR SPINE/LOWER BACK: Yes ROM limited, Yes pain with ROM and Yes lumbar spinal tenderness Extremity: GENERAL: Yes normal exam except as noted Neuro: BLAYNE COMA SCALE: document GCS findings Normandy coma scale eye opening: Spontaneous [place] coma scale verbal response: Orientated Blayne coma scale motor response: Obey commands Normandy coma scale total score: 15 COMMON NORMALS: patient oriented x3, moves all extremities, no focal motor deficits and no sensory deficits noted SENSORIUM/ORIENTATION: Yes alert, Yes oriented to person, Yes oriented to place and Yes oriented to time Skin: COMMON NORMALS: no rashes or lesions noted GENERAL SKIN EXAM: no rashes or lesions noted Course 2 Vital Signs: Vital signs: Vital Signs Temperature 97.9 F 08/04/24 17:55 Pulse Rate 82 08/04/24 21:17 Respiratory Rate 16 08/04/24 21:17 Blood Pressure 140/90 08/04/24 21:35 Pulse Oximetry 98 08/04/24 21:35 Oxygen Delivery Me thod Room Air 08/04/24 21:35 MDM - General Adult Medical Decision Making Patient is a 54-year-old female here for complaints of pain all over . She was seen here 6 weeks ago and diagnosed with probable right sided breast malignancy with metastasis. CT scan showing most likely lesions involving her cervical, thoracic, and lumbar spine as well as ribs. Patient had been complaining of headaches over the past several weeks. She was requesting CT imaging of her head as she feared cancer had spread there as well. CT negative. Vital signs are stable. Blood work overall is nonactionable. She has a follow-up appointment with her oncology team on Thursday. She has had her breast mammogram and ultrasound done at [facility]. We have requested these records. She still needs an actual biopsy/pathology report for definitive confirmation. Patient was given 90 tabs of 7.5mg oxycodone through PCP recently for directions for one tab q 8 hrs. She can increase this to up to 1-2 tabs every 4-6 hours to control her pain. I did not see any indication for additional imaging today. Return to ED precautions given. Medical Records I reviewed the patient's medical records. Lab Data I reviewed the patient's lab results. 08/04/24 19:06 08/04/24 19:[address] 08/04/24 20:04 IMPRESSION: No acute intracranial abnormality. Laboratory Results WBC 11.12 10^3/uL (3.29-11.43) 08/04/24 19:06 RBC 5.04 10^6/uL (3.85-5.65) 08/04/24 19:06 Hgb 15.10 g/dL (11.27-16.99) 08/04/24 19:06 Hct 46.0 % (36-47) 08/04/24 19:06 MCV 91.3 fl (85-98) 08/04/24 19:06 MCH 30.0 pg (27-33) 08/04/24 19:06 MCHC 32.8 g/dL (30-55) 08/04/24 19:06 RDW 14.2 % (12.1-15.1) 08/04/24 19:06 Plt Count 379 10^3/cmm (157-399) 08/04/24 19:06 MPV 8.6 fL (7.4-10.4) 08/04/24 19:06 Neut % (Auto) 48.0 % 08/04/24 19:06 Lymph % (Auto) 41.7 % 08/04/24 19:06 [place] % (Auto) 7.0 % 08/04/24 19:06 Eos % (Auto) 2.4 % 08/04/24 19:06 Baso % (Auto) 0.7 % 08/04/24 19:06 Neut # (Auto) 5.33 10^3/uL (1.8-7.7) 08/04/24 19:06 Lymph # (Auto) 4.6 10^3/uL (0.8-4.8) 08/04/24 19:06 [place] # (Auto) 0.8 10^3/uL (0.2-0.9) 08/04/24 19:06 Eos # (Auto) 0.3 10^3/uL (0.0-0.8) 08/04/24 19:06 Baso # (Auto) 0.1 10^3/uL (0.0-0.1) 08/04/24 19:06 Nucleated RBC % (auto) 0 % 08/04/24 19:06 Nucleated RBCs # 0.0 /100WBC 08/04/24 19:06 Sodium 137 mmol/L (136-145) 08/04/24 19:06 Potassium 4.3 mmol/L (3.5-5.1) 08/04/24 19:06 Chloride 100 mmol/L (98-107) 08/04/24 19:06 Carbon Dioxide 26 mmol/L (22-29) 08/04/24 19:06 Anion Gap 15.3 (5-19) 08/04/24 19:06 BUN 13 mg/dL (6-20) 08/04/24 19:06 Creatinine 0.7 mg/dL (0.5-0.9) 08/04/24 19:06 GFR Calculation 86.6 mL/min (90-130) L 08/04/24 19:06 Glucose 88 mg/dL (65-115) 08/04/24 19:06 Calculated Osmolality 284 mOsm/kg (285-295) L 08/04/24 19:06 Calcium 9.7 mg/dL (8.5-10.5) 08/04/24 19:06 Total Bilirubin 0.2 mg/dL (0.15-1.2) 08/04/24 19:06 AST 25 U/L (0-32) 08/04/24 19:06 ALT 10 U/L (0-33) 08/04/24 19:06 Alkaline Phosphatase 208 U/L (35-105) H 08/04/24 19:06 Total Protein 7.0 g/dL (6.6-8.7) 08/04/24 19:06 Albumin 3.9 g/dL (3.5-5.2) 08/04/24 19:06 Globulin 3.1 g/dL (1.3-4.6) 08/04/24 19:06 Lipase 17 U/L (13-60) 08/04/24 19:06 All radiology interpretation(s) finalized by discharge Discharge Plan Discharge Patient Disposition: Home Clinical Impression: Breast cancer metastasized to multiple sites Qualifiers: Laterality: right Qualified Code(s): C50.911 - Malignant neoplasm of unspecified site of right female breast Condition: Stable Prescriptions: No Action gabapentin 600 mg tablet 600 mg PO TID clonazepam 0.5 mg tablet 0.5 mg PO TID albuterol sulfate 90 mcg/actuation HFA aerosol inhaler 2 puff inhalation Q6H PRN (Reason: Shortness Of Breath) famotidine 20 mg tablet 20 mg PO BEDTIME prednisone 10 mg tablet See Rx Instructions PO DAILY Qty: 17 0RF Rx Instructions: day 1-5 20mg; day 6-10 10mg; day 11-14 5mg orally daily; albuterol sulfate 2.5 mg /3 mL (0.083 %) solution for nebulization 2.5 mg inhalation Q6H Qty: 90 0RF Rx Instructions: Use every 4-6 hours as needed amoxicillin-pot clavulanate 875-125 mg tablet 1 tab PO BID Qty: 20 0RF Spiriva with HandiHaler 18 mcg capsule, w/inhalation device 1 cap inhalation DAILY Qty: 30 3RF Rx Instructions: puncture 1 cap using device; one dose = 2 inhalations dexlansoprazole 60 mg capsule,biphase delayed releas 60 mg PO DAILY albuterol sulfate 90 mcg/actuation HFA aerosol inhaler 2 inh inhalation Q4H PRN (Reason: shortness of breath or wheezing) Qty: 8.5 0RF hydrocodone-acetaminophen 5-325 mg tablet 1 tab PO Q6H PRN (Reason: pain) Qty: 30 0RF ondansetron 8 mg tablet,disintegrating 8 mg PO Q6H Qty: 14 0RF Rx Instructions: Take 1/2-1 tab every 6 hours as needed for nausea and vomiting polyethylene glycol 3350 [Miralax] 17 gram/dose powder 17 g PO DAILY Qty: 510 0RF Rx Instructions: Take 1 scoop daily while taking pain medications. Discharge Orders: Discharge ED (Routine); Ordered 08/04/24 Ordered By: Coco Gomez Referrals: Lilly Beck MD [Primary Care Provider] - Activity Restrictions/Additional Instructions: As we discussed, I have placed a referral with case management to try to get you a breast biopsy here through [facility] if possible as you have stated you do not have a ride to [place]. You have an appointment with her oncology team on Thursday. I recommend you speak to them about home health services. They can also help with getting the biopsy as well. We have requested records from [facility] from your recent mammogram and ultrasound. I recommend you try to contact them tomorrow as well as Thursday to try to get these records as well bring them with you to your oncology appointment on Thursday. As we discussed, you just got 90 tablets of 7.5mg oxycodone filled. Directions on your bottle are for 1 tab every 8 hours. If this is not controlling your pain you may increase to 1-2 tabs every 4-6 hours. Please speak to oncology about further pain management options. 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
[2024-08-04] MEDS: ondansetron 2 mg/ML SDV 2 mL 4 MG IVP (20:16)
[2024-08-04] MEDS: morphine 4 mg/mL SDV 1 mL IVP (20:17)
[2024-08-04 20:24] LABS: Lipase 17 U/L (13-60)
[2024-08-04] MEDS: HYDROmorphone 1 mg/mL INJ 1 mL IVP (21:13)
[2024-08-04] MEDS: nicotine 21 mg Patch 1 PATCH TRANSDERMA (21:24)
[2024-08-04] MEDS: HYDROmorphone 1 mg/mL INJ 1 mL 0.5 MG IVP (22:59)
--- NOTE | 2024-08-05 01:01 | PC.NURSE ---
Pt found a friend who could come and pick her up, pt decided to go outside to smoke and wait for friend but was also afraid the friend would fall back asleep and not arrive, this auto service writer explained that we wouldn't kick her outside if the friend didn't arrive. We would figure something out. Pt ok with plan.
== END 2024-08-05 01:11 | disposition home or self-care (01) ==
PROVIDERS: Emergency Medicine; Emergency Provider Physician Assistant; PCP Family Medicine
DX: C50.911 Malignant neoplasm of unspecified site of right female breast (principal); Z72.0 Tobacco use; J44.9 Chronic obstructive pulmonary disease, unspecified
CPT/HCPCS: 36415; 70450; 80053; 83690; 85025; 96374; 96375; 96376; 99285; J1171; J2270; J2405

== ENCOUNTER 2024-08-09 09:24 | Oncology outpatient (recurring) (ONCR) | payer MEDICAID, SELFPAY ==
--- NOTE | 2024-09-02 10:30 | PETR_ITS ---
PROCEDURE INFORMATION: Exam: PET/CT Skull Base to Mid-thigh Exam date and time: 09/02/2024 11:41 AM Age: 54 years old Clinical indication: Condition or disease; Primary cancer: Breast cancer; Initial oncological staging assessment; Additional info: Breast cancer metastasized to multiple sites LABS AND CLINICAL REPORTS: Glucose: 92 mg/dl Treatment strategy for malignancy (PET staging): Initial Staging (PI) TECHNIQUE: Imaging protocol: Following at least four-hour fasting and following the injection of radiopharmaceutical, low dose CT images were obtained. Then, PET images were obtained. Attenuation corrected images were constructed using the CT scan. Fused images of PET and CT were reviewed. The standardized uptake values (SUV) reported below are maximum values within a region of interest, expressed in gm/ml. Exam includes orbital meatal line to mid-thigh. Radiopharmaceutical: 11.92 mCi F-18 FDG (Fluorodeoxyglucose), IV. Injection site: right ac COMPARISON: CT head 08/04/2024, CT angio chest PE protcl [id number] 06/21/2024 3:47 AM, CT neck 07/10/2023, lumbar spine MRI 08/28/2021, CT abdomen and pelvis report 10/09/2011 FINDINGS: Brain: Visualized brain has normal physiologic uptake. Pharynx: No abnormal uptake. Larynx: No abnormal uptake. Lungs, pleura and trachea: No abnormal uptake. The calcified granuloma in the left lower lobe is identified. Heart: Normal physiologic uptake. Mediastinal space: No abnormal uptake. Liver: Three foci of elevated uptake in the right liver lobe are present, SUV max 6.8 laterally without a well-defined lesion on PET image 142, and in the lateral right liver lobe, SUV max 8.4 on PET image 159 within a region of subtle lucency measuring approximately 1.8 cm in diameter on CT image 181. A 3rd focus of uptake within the medial inferior right lobe of the liver is noted, SUV max 5.7 on PET image 157 without a well defined lesion on the CT images. Gallbladder and biliary ducts: No abnormal uptake. Pancreas: No abnormal uptake. Spleen: No abnormal uptake. Calcified granulomas in the spleen are present. Adrenal glands: No abnormal uptake. Kidneys and ureters: Normal physiologic uptake. Stomach and bowel: No abnormal uptake. Reproductive: Mild uptake within the endometrium is noted, SUV max 9.6 on PET image 223. Vasculature: No abnormal uptake. Lymph nodes: A radiotracer avid right axillary lymph node is identified measuring [address] image 251, SUV max 8.1. Similar size of lymph nodes posterior to the submandibular glands bilaterally compared with 07/10/2023. A lymph node posterior to the left submandibular gland measuring 1.5 x [address] image 296 is noted, SUV max 3.1. A lymph node posterior to the right submandibular gland measures 1.5 x [address] image 295, SUV max 3.2. Benign-appearing calcified left hilar lymph nodes are present. Skeleton: Extensive distribution of radiotracer avid osseous lesions identified in the axial and appendicular skeleton with a mixed lucent and sclerotic appearance. Examples: In the clivus measuring approximately 1.6 cm in diameter on CT image 317, SUV max 14.2; L1 vertebral body and within mild destructive changes involving the left L1 pedicle on CT image 188, SUV max 14.8; anterior right iliac bone without a well-defined lesion on the CT images, SUV max 13.[address] image 134; left ischial tuberosity within a region of ill-defined sclerosis, SUV max 15.[address] image 95. Uptake within partially healed posterior left 6th, 8th and posteromedial healing left 9th rib fractures is noted, for example in the left 6th rib on CT image 247, SUV max 17.9. Uptake in the right femoral head without a well-defined lesion on the CT images is noted, SUV max 18.30 CT image 272. Severe right hip primary osteoarthritic changes are noted. There are postoperative changes involving the posterior right acetabular roof with a fixation screw in this location. Degenerative changes in the spine are identified. Bilateral L5 pars defects are noted with anterolisthesis of L5 on S1 measuring approximately 1.4 cm. Moderate to severe bilateral glenohumeral joint primary osteoarthritic changes. Soft tissues: Regions of radiotracer avid asymmetric soft tissue density in the superior right breast are present. Elevated uptake (SUV max 7.6 on PET image 131) throughout a region of multilobulated soft tissue density in the right breast is noted for example on CT image 202 image 210 measuring 6.7 x 1.2 cm is noted, with a more nodular focus in this region superiorly on CT image 217 measuring 2.0 cm in diameter similar to the prior CT of 06/21/2024. Additional uptake is noted within a small soft tissue density nodular focus in the lateral superior right breast measuring 9 mm on series 202, image 214, SUV max 7.3. METRICS: Mediastinal blood pool: SUV max 2.8, SUV mean 2.0 PET/PET skull to thigh INIT [id number] IMPRESSION: 1. Abnormal uptake within regions of asymmetric soft tissue density in the right breast are noted compatible with the history of known right-sided breast cancer. 2. Uptake within a small right axillary lymph node is present, concerning for a metastasis. 3. Multifocal osseous metastatic lesions. 4. Uptake within healing left-sided rib fractures are noted, which may be related to pathologic fractures and/or posttraumatic changes. 5. Three foci of uptake within the liver are noted, concerning for metastases. 6. Mildly prominent lymph nodes posterior to the submandibular glands appear similar compared with the prior CT of 07/10/2023, favoring a benign inflammatory or infectious etiology. A malignant etiology is less likely. 7. Additional nonurgent findings as detailed above.
== END 2024-09-06 23:59 | disposition home or self-care (01) ==
LOC: ONCMED 09-01 15:11 → RAD 09-02 10:27 → ONCMED 09-02 10:28
PROVIDERS: PCP Family Medicine; Visit Provider Internal Medicine Medical Oncology
DX: C50.911 Malignant neoplasm of unspecified site of right female breast (principal); R93.89 Abnormal findings on diagnostic imaging of other specified body structures
CPT/HCPCS: 78815; 99205; A9552

== ENCOUNTER 2025-05-04 12:04 | Emergency (ER) | payer MEDICAID, SELFPAY ==
--- OUTSIDE RECORDS SUMMARY | 2021-08-14 12:15 | XMS_ITS | Continuity of Care Document ---
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 Name Role Phone Ann RECREATION TECHNICIAN-C/JONATHANP-Maria Luisa KRAMER Unavailable Un available Allergies, Adverse Reactions, Alerts Substance Reaction Status Criticality KETOROLAC TROMETHAMINE Active No In formation haloperidol Active No Information Medications Medication Instructions Dosage Effective Dates (start - stop) Status Comments Neurontin 600 mg tablet take 1 tablet by oral route 3 times every day 600 MG - Active DC Neurontin 400mg DULOXETINE DR 60MG CAPSULES TAKE 1 CAPSULE BY MOUTH EVERY DAY - Active Vitamin D2 1,250 mcg (50,000 unit) capsule take 1 capsule by oral route every week - Active nicotine 21mg/24hr-14mg/24h r-7mg/24hr daily transderm patch,sequential Apply 21mg Patch QD X6 Weeks; Then Apply 14mg Patch QD X2 Weeks; Then Apply 7mg Patch QD X2 Weeks - Active Smoking Cessation As per patient privacy policy some of the clinical information may not be visible. Procedures Procedure Date Finalize Template Workaround OFFICE/OUTPATIENT VISIT, EST Finalize Template Workaround OFFICE/OUTPATIENT VISIT, EST Finalize Template Workaround OFFICE/OUTPATIENT VISIT, EST Finalize Template Workaround OFFICE/OUTPATIENT VISIT, EST (1371) Finalize Template Workaround OFFICE/OUTPATIENT VISIT, EST (1371) Finalize Template Workaround OFFICE/OUTPATIENT VISIT EST Finalize Template Workaround OFFICE/OUTPATIENT VISIT, EST (1371) Finalize Template Workaround OFFICE/OUTPATIENT VISIT, EST (1371) Finalize Template Workaround OFFICE/OUTPATIENT VISIT, EST (1371) Finalize Template Workaround OFFICE/OUTPATIENT VISIT, EST (1371) Limited Oral Evaluation Problem Focused Intraoral Periapical First Film Extraction, Erupted Tooth Or Exposed Arely t (Elevati Treatment Plan Complete Pre-Pay For Services EDR Approval Note Finalize Template Workaround OFFICE/OUTPATIENT VISIT, EST (1371) Finalize Template Workaround OFFICE/OUTPATIENT VISIT, EST (1371) Finalize Template Workaround OFFICE/OUTPATIENT VISIT, EST (1371) Finalize Template Workaround OFFICE/OUTPATIENT VISIT, EST (1371) Finalize Template Workaround OFFICE/OUTPATIENT VISIT, EST (1371) Finalize Template Workaround OFFICE/OUTPATIENT VISIT, EST (1371) Finalize Template Workaround OFFICE/OUTPATIENT VISIT, EST (1371) OFFICE/OUTPATIENT VISIT EST OFFICE/OUTPATIENT VISIT EST Finalize Template Workaround OFFICE/OUTPATIENT VISIT, EST (1371) Finalize Template Workaround OFFICE/OUTPATIENT VISIT, EST (1371) Finalize Template Workaround OFFICE/OUTPATIENT VISIT, EST (1371) Finalize Template Workaround OFFICE/OUTPATIENT VISIT, EST (1371) GROUP PSYCHOTHERAPY Finalize Template Workaround OFFICE/OUTPATIENT VISIT, EST (1371) GROUP PSYCHOTHERAPY Finalize Template Workaround OFFICE/OUTPATIENT VISIT, EST (1371) Intraoral Periapical First Film Limited Oral Evaluation Problem Focused Extraction, Erupted Tooth Or Exposed Arely t (Elevati EDR Approval Note PSYCH DIAGNOSTIC EVALUATION X-RAY EXAM OF NECK SPINE, 2-3 views X-RAY EXAM OF THORACIC SPINE, 3 views Ja X-RAY EXAM OF LOWER SPINE, 2-3 views Sep X-RAY EXAM OF NECK SPINE, 2-3 views X-RAY EXAM OF LOWER SPINE, 2-3 views Sep X-RAY EXAM OF THORACIC SPINE, 3 views Ja Finalize Template Workaround OFFICE/OUTPATIENT VISIT, EST (1371) OFFICE/OUTPATIENT VISIT EST GLYCOSYLATED HEMOGLOBIN TEST LIPID PANEL VITAMIN B12 Vitamin D 25-OH COMPLETE CBC W/AUTO DIFF WBC COMPREHEN METABOLIC PANEL ASSAY THYROID STIM HORMONE DRUG TEST PRSMV DIR OPT OBS ROUTINE VENIPUNCTURE Finalize Template Workaround OFFICE/OUTPATIENT VISIT, EST (1371) OFFICE/OUTPATIENT VISIT, EST (1371) DRUG TEST PRSMV DIR OPT OBS OFFICE/OUTPATIENT VISIT, EST (1371) DRUG TEST PRSMV DIR OPT OBS DRUG TEST PRSMV DIR OPT OBS OFFICE/OUTPATIENT VISIT, EST (1371) OFFICE/OUTPATIENT VISIT, EST (1371) EST-EXP PROB FOC/LOW COMPLEXITY 008 EST-EXP PROB FOC/LOW COMPLEXITY 008 EST-EXP PROB FOC/LOW COMPLEXITY 008 COMPREHEN METABOLIC PANEL LIPID PANEL QUEST COMPLETE CBC W/AUTO DIFF WBC EST-PROB FOC/STR FORWARD URINALYSIS NONAUTO W/O SCOPE COMPLETE URINALYSIS EST-EXP PROB FOC/LOW COMPLEXITY 008 Advance Directives Directive Yes / No Effective Date File Name No Information Encounters Encounter Description Practice Location Reason(s) For Visit Diagnoses Date Provider Providers Copied on Encounter [facility], [id number]- [place], [address], [place] tel:[phone] Behavioral Medicine F2 No Information 1 Ann Glass. [address], [place], [address], [place]. tel:[phone] [facility], [address] Ineeg[address]U6 4057111FJWalker, [place], [address], [place] tel:[phone] Behavioral Medicine F2 No Information 1 Brian Kim. [address], [place], [address], [place]. tel:[phone] [facility], [address] Tcmpt018V0 2393299UCWalker[place], [address], [place] tel:[phone] Behavioral Medicine F2 No Information 1 Ann Glass. [address], [place], [address], [place]. tel:[phone] [facility], [address] Clkxs552A3 0967613KYWalker, [place], [address], [place] tel:[phone] Behavioral Medicine F2 No Information 1 Ann Glass. [address], [place], [address], [place]. tel:[phone] [facility], [address] Adhgj482G8 0976737IL- [place], [address], [place] tel:[phone] Behavioral Medicine F2 Follow Up of Depression (chief complaint)Fo llow Up of Anxiety (chief complaint)Fo llow Up of Insomnia (chief complaint)Fo llow Up of Opioid Dependency (chief complaint)Fo llow Up of Medication Refills (chief complaint) Generalized Anxiety DisorderInte rvertebral disc disorder w/ radiculopath y of lumbosacral regionMajor depressive disorder, recurrent, moderateNeur opathy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Other chronic painOverweig ht or ObesityPsych ophysiologic insomniaFibr omyalgia 1 Ann Glass. [address], [place], [address], [place]. tel:[phone] Referring Provider: Maria Luisa Juarez, [address] [place], [address]. tel:[phone] [facility], [address] Btnyi[address]O6 2628449CK- [place], [address], [place] tel:[phone] Behavioral Medicine F2 Follow Up of Depression (chief complaint)Fo llow Up of Insomnia (chief complaint)Fo llow Up of Anxiety (chief complaint)Fo llow Up of Opioid Dependency (chief complaint)Fo llow Up of Medication Refills (chief complaint) Generalized Anxiety DisorderMajo r depressive disorder, recurrent, moderateOthe r termite control technician (current) drug therapy 1 Ann Glass. [address] [place], [place], [address], [place]. tel:[phone] Referring Provider: Maria Luisa Juarez, [address] [place], [address]. tel:[phone] [facility], [address] Cbtlm017S3 2786040QTMcpherson Hospital [place], [address], [place] tel:[phone] Behavioral Medicine F2 Depression (chief complaint)An xiety (chief complaint)In somnia (chief complaint)Op iate dependence (chief complaint) Major depressive disorder, recurrent, moderateGene ralized Anxiety DisorderPsyc hophysiologi c insomnia 0 No [facility], [address] [id number] 5862864QIWalker, [place], [address], [place] tel:[phone] Behavioral Medicine F2 Depression (chief complaint)An xiety (chief complaint)In somnia (chief complaint)Op iate dependence (chief complaint) Major depressive disorder, recurrent, moderateGene ralized Anxiety DisorderPsyc hophysiologi c insomnia 0 No [facility], [address] Hgesd071P1 2366668LS[facility] [place], [address], [place] tel:[phone] Behavioral Medicine F2 Depression (chief complaint)An xiety (chief complaint)In somnia (chief complaint)Op iate dependence (chief complaint) Major depressive disorder, recurrent, moderateGene ralized Anxiety DisorderPsyc hophysiologi c insomnia 0 No [facility], [address] Vqufm598O3 1975598EPJerico [place], [address], [place] tel:[phone] Behavioral Medicine F2 Virtual encounter (chief complaint)De pression (chief complaint)An xiety Insomnia (chief complaint)Op iate dependence (chief complaint)We ight loss (chief complaint)Hi p pain (chief complaint) Major depressive disorder, recurrent, moderateGene ralized Anxiety DisorderPsyc hophysiologi c insomnia 0 0 No [facility], [address] [id number] 4005844KJMcpherson Hospital [place], [address], tel:[phone] [facility] Depression (chief complaint)An xiety (chief complaint)In somnia (chief complaint)Op iate dependence (chief complaint)Ch ronic obstructive pulmonary disease (chief complaint) Major depressive disorder, recurrent, moderateGene ralized Anxiety DisorderPsyc hophysiologi c insomniaChro valentin obstructive pulmonary disease, unspecified Fe 0 No [facility], [address] Olume601W6 8176005OHMcpherson Hospital [place], [address], [place] tel:[phone] [facility] Depression (chief complaint)An xiety (chief complaint)In somnia (chief complaint)Op iate dependence (chief complaint)Hi p pain (chief complaint)Ba ck pain (chief complaint) Major depressive disorder, recurrent, moderateGene ralized Anxiety DisorderPsyc hophysiologi c insomnia 0 No [facility], [address] [id number] 5539137YMMcpherson Hospital [place], [address], [place] tel:[phone] [facility] Depression (chief complaint)An xiety (chief complaint)In somnia (chief complaint)Op iate dependence (chief complaint)To bacco use (chief complaint) Sleep apnea, unspecifiedM ajor depressive disorder, recurrent, moderateGene ralized Anxiety DisorderPsyc hophysiologi c insomniaToba supervisor accounting clerks use 9 No [facility], [address] Uvyqj338X9 0885556WYMcpherson Hospital [place], [address], [place] tel:[phone] [facility] Depression (chief complaint)An xiety (chief complaint)In somnia (chief complaint)Op iate dependence (chief complaint) Major depressive disorder, recurrent, moderateGene ralized Anxiety DisorderPsyc hophysiologi c insomnia 9 No [facility], [address] Yinjq520L3 1124383AVMcpherson Hospital [place], [address], [place] tel:[phone] [facility] Encounter for dental exam and cleaning w/o abnormal findings 9 Natalia Emery. [address], [place], [address], [place]. tel:[phone] Referring Provider: Rupert Fisher, [address] [place], [address]. tel:[phone] [facility], [address] Wqejg915X0 2111255HBWalker, [place], [address], [place] tel:[phone] [facility] Depression (chief complaint)An xiety (chief complaint)Op iate dependence (chief complaint)In somnia (chief complaint)Ne uropathy (chief complaint) Major depressive disorder, recurrent, moderateGene ralized Anxiety DisorderPsyc hophysiologi c insomniaNeur opathyDorsal kathy, unspecifiedF ibromyalgiaI ntervertebra l disc disorder w/ radiculopath y of lumbosacral regionOther spondylosis, lumbar regionSpondy lolisthesis, lumbar region 9 No Informatio n [facility], [address] [id number] 3470807HCJerico Springs[place], [address], [place] tel:[phone] [facility] Depression (chief complaint)An xiety (chief complaint)In somnia (chief complaint)Op iate dependence (chief complaint)De generative disc disease (chief complaint)We ight gain (chief complaint) Major depressive disorder, recurrent, moderateGene ralized Anxiety DisorderPsyc hophysiologi c insomniaInte rvertebral disc disorder w/ radiculopath y of lumbosacral region 9 No Informatio n [facility], [address] [id number] 0823285DOWalker, [place], [address], [place] tel:[phone] [facility] Anxiety (chief complaint)De pression (chief complaint)In somnia (chief complaint)Op iate dependence (chief complaint)Ba ck pain (chief complaint) Major depressive disorder, recurrent, moderateGene ralized Anxiety DisorderPsyc hophysiologi c insomniaInte rvertebral disc disorder w/ radiculopath y of lumbosacral region 9 No Informatio n [facility], [address] Lxyie665R7 8903915BUNewton Medical Center, [facility] [place], [address], [place] tel:[phone] [facility] Depression (chief complaint)An xiety (chief complaint)In somnia (chief complaint)Op iate dependence (chief complaint)Kn ee pain (chief complaint) Major depressive disorder, recurrent, moderateGene ralized Anxiety DisorderPsyc hophysiologi c insomnia 9 No Informatio n [facility], [address] Aurts196X8 8199061QGNewton Medical Center, [facility] JESUS ALBERTO oneal, [address], [place] tel:[phone] [facility] Depression (chief complaint)An xiety (chief complaint)In somnia (chief complaint)Op iate dependence (chief complaint) Major depressive disorder, recurrent, moderateGene ralized Anxiety DisorderPsyc hophysiologi c insomnia 8 No Informatio n [facility], [address] Ahhnc555J4 6806870FONewton Medical Center, [facility] [place], [address], [place] tel:[phone] [facility] Opiate dependence (chief complaint)De pression (chief complaint)An xiety (chief complaint)In somnia (chief complaint) Major depressive disorder, recurrent, moderateGene ralized Anxiety DisorderPsyc hophysiologi c insomnia 8 No Informatio n [facility], [address] [id number] 4799845KAMcpherson Hospital [place], [address], [place] tel:[phone] [facility] Depression (chief complaint)An xiety (chief complaint)In somnia (chief complaint)Op iate dependence (chief complaint) Major depressive disorder, recurrent, moderateGene ralized Anxiety DisorderPsyc hophysiologi c insomnia 8 No Informatio n OFFICE/OUTPATI ENT VISIT EST [facility], [address] Oatyi555B9 4749391CVJerico [place], [place], [address], [place] tel:[phone] [facility] Follow Up of Mood (chief complaint)Fo llow Up of Neuropathy (chief complaint)Fo llow Up of Pain Management (chief complaint)Fo llow Up of Medication Refills (chief complaint) Fibromyalgia Generalized Anxiety DisorderInte rvertebral disc disorder w/ radiculopath y of lumbosacral regionMajor depressive disorder, recurrent, moderateOthe r chronic painOther long-term (current) drug therapyOverw eight or ObesityTobac co use 8 Ann Glass. [address], [place], [address], [place]. tel:[phone] Referring Provider: Maria Luisa Juarez, [address] [place], [address]. [phone] OFFICE/OUTPATI ENT VISIT EST [facility], [address] Fctgr258F4 5563221XYJerico Springs, [place], [address], [place] tel:[phone] [facility] Follow Up of Go over labs (chief complaint)Fo llow Up of Mood (chief complaint)Fo llow Up of Pain Management (chief complaint)Fo llow Up of Medication Refills (chief complaint) Fibromyalgia Generalized Anxiety DisorderInte rvertebral disc disorder w/ radiculopath y of lumbosacral regionOther chronic painOther long-term (current) drug therapySpond ylolisthesis , lumbar regionTobacc o useVitamin D deficiency, unspecified Ann Glass. [address], [place], [address], [place]. tel:[phone] Referring Provider: Maria Luisa Juarez, [address] [place], [address]. tel:[phone] [facility], [address] Rcjsn841I3 6886342ZAJerico Springs, [place], [address], [place] tel:[phone] [facility] Depression (chief complaint)An xiety (chief complaint)In somnia (chief complaint) Major depressive disorder, recurrent, moderateGene ralized Anxiety DisorderPsyc hophysiologi c insomnia 8 No Informatio n [facility], [address] Qizjg321U9 8316145TZ- [facility], [facility] [place], [address], [place] tel:[phone] [facility] Depression (chief complaint)An xiety (chief complaint)In somnia (chief complaint) Major depressive disorder, recurrent, moderateGene ralized Anxiety DisorderPsyc hophysiologi c insomnia 8 No Informatio n [facility], [address] Wkxop362C0 9439115NJNewton Medical Center, [facility] HospitalJESUS ALBERTO mendez, [address], [place] tel:[phone] [facility] Depression (chief complaint)An xiety (chief complaint)In somnia (chief complaint) Major depressive disorder, recurrent, moderateGene ralized Anxiety DisorderPsyc hophysiologi c insomniaChro valentin pain syndrome 8 No Informatio n [facility], [address] Bbgbe487Q0 0836894PZNewton Medical Center, [facility] [place], [address], [place] tel:[phone] [facility] Depression (chief complaint)An xiety (chief complaint)In somnia (chief complaint)Ba ck pain (chief complaint) Major depressive disorder, recurrent, moderateGene ralized Anxiety DisorderInte rvertebral disc disorder w/ radiculopath y of lumbosacral region 8 No Informatio n GROUP PSYCHOTHERAPY [facility], [address] [id number] [id number]- [facility], MarinaJESUS ALBERTO mendez, [address], [place] tel:[phone] [facility] Major depressive disorder, recurrent, moderateGene ralized Anxiety Disorder 8 No Informatio n [facility], [address] Gtgbs599J7 8811255MS- [facility], MarinaJESUS ALBERTO mendez, [address], [place] tel:[phone] [facility] 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) Chronic pain syndromeOthe r spondylosis, lumbar regionSpinal enthesopathy , lumbar regionSpondy lolisthesis, lumbar region 8 No Informatio n [facility], [address] Illro034Q6 1502811DZ- [facility], [place], [place], [address], [place] tel:[phone] [facility] Depression (chief complaint)An xiety (chief complaint) Major depressive disorder, recurrent, moderateGene ralized Anxiety Disorder 8 No Informatio n GROUP PSYCHOTHERAPY [facility], [address] Ugddd722C7 2192753PU- [facility], [place], [place], [address], [place] tel:[phone] [facility] Major depressive disorder, recurrent, moderateGene ralized Anxiety DisorderPsyc hophysiologi c insomnia 8 No Informatio n [facility], [address] Mzclg683H1 5027680QF- [facility], [place], [place], [address], [place] tel:[phone] [facility] Depression (chief complaint)An xiety (chief complaint)In somnia (chief complaint) Major depressive disorder, recurrent, moderateGene ralized Anxiety DisorderPsyc hophysiologi c insomnia 8 No Informatio n [facility], [address] Jvqpw771Y4 6946621VE- [place], [place], [address], [place] tel:[phone] [facility] Encounter for dental exam and cleaning w/o abnormal findings 8 Mary Hong. [address] [place], [address], [place]. tel:[phone] Referring Provider: Hal Valverde, [address] [place], [address]. tel:[phone] PSYCH DIAGNOSTIC EVALUATION [facility], [address] Leeor538R6 4720134KP- [place], [place], [address], [place] tel:[phone] [facility] Major depressive disorder, recurrent, moderateGene ralized Anxiety Disorder 8 No Informatio n [facility], [address] Snjlc884J5 1304314XV- [facility], [place], [place], [address], [place] tel:[phone] Family Medicine F1 Dorsalgia, unspecified 8 Philip Yogi. [address], [place], [address], [place]. tel:[phone] [facility], [address] Iwuvx540E9 6311297CW- [facility], [place], [place], [address], [place] tel:[phone] Family Medicine F1 Dorsalgia, unspecified 8 Ann Glass. [address] [place], [place], [address], [place]. 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 [address] [place], [place], [address], [place]. tel:[phone] Referring Provider: Maria Luisa Juarez, [address] [place], [address]. tel:[phone] [facility], [address] Ivpcx175K2 3329220KIJerico Springs, [place], [address], [place] tel:[phone] [facility] Obesity, unspecifiedO ther chronic painIntvrt disc disorders w radiculopath y, lumbosacral regionDorsal kathy, unspecifiedO ther fatigueEncou nter for general adult medical exam w abnormal findingsToba supervisor accounting clerks useOther long-term (current) drug therapy 8 Ann Glass. [address] [place], [place], [address], [place]. tel:[phone] Referring Provider: Maria Luisa Juarez, [address] [place], [address]. tel:[phone] OFFICE/OUTPATI ENT VISIT EST [facility], [address] Ydnoi375V5 4143119XXWalker, [place], [address], [place] tel:[phone] [facility] Establish Care (chief complaint) Encounter for adult annual physical exam w/ abnormal findingOther chronic painInterver tebral disc disorder w/ radiculopath y of lumbosacral regionOther long-term (current) drug therapyBack painOverweig ht or ObesityFatig ueTobacco useAllergic rhinitisFibr omyalgiaEnco unter for screening mammogram for Ca of breast 8 Ann Glass. [address] [place], [place], [address], [place]. tel:[phone] Referring Provider: Maria Luisa Juarez, [address] [place], [address]. tel:[phone] [facility], [address] Wzaov833E1 9917507NFJerico [place], [place], [address], [place] tel:[phone] Family Medicine F1 Obesity, unspecifiedO ther chronic painIntvrt disc disorders w radiculopath y, lumbosacral regionDorsal kathy, unspecifiedO ther fatigueEncou nter for general adult medical exam w abnormal findingsToba supervisor accounting clerks use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 Marky Glass. [address], [place], [address], [place]. tel:[phone] Referring Provider: Maria Luisa Juarez, [address] [place], [address]. tel:[phone] [facility], [address] Iajjj454V8 6766453LJWalker, [place], [address], [place] tel:[phone] [facility] Depression (chief complaint)An xiety (chief complaint) Major depressive disorder, recurrent, moderateGene ralized Anxiety DisorderOthe r termite control technician (current) drug therapy 7 No [facility], [address] Nbuiu877T3 5813106WSJerico [place], [place], [address], [place] tel:[phone] [facility] Depression (chief complaint)An xiety (chief complaint) Major depressive disorder, recurrent, moderateGene ralized Anxiety DisorderOthe r long-term (current) drug therapy 7 No [facility], [address] Fyvws441T0 7263715AUWalker, [place], [address], [place] tel:[phone] [facility] Other long-term (current) drug therapy 7 No [facility], [address] Hpjmd821W7 7584328MCWalker, [place], [address], [place] tel:[phone] [facility] Depression (chief complaint)An xiety (chief complaint)De generative disc disease (chief complaint)De generative Joint disease (chief complaint) Major depressive disorder, recurrent, moderateGene ralized Anxiety DisorderOthe r termite control technician (current) drug therapy 7 No [facility], [address] Bqhzc953W8 7943610SOWalker, [place], [address], [place] tel:[phone] [facility] 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 7 No Informatio n [facility], [address] Dovba876X2 9316534LP- [place], [address], [place] tel:[phone] [facility] Other long-term (current) drug therapy 7 No Informatio n [facility], [address] Gzxht824G4 8509851XP- [place], [place], [address], [place] tel:[phone] [facility] Anxiety (chief complaint)De generative disc disease (chief complaint) Generalized Anxiety DisorderInte rvertebral disc disorder w/ radiculopath y of lumbosacral region 7 No Informatio n [facility], [address] Zbvfk956H2 4197258EV- [place], [place], [address], [place] tel:[phone] [facility] Anxiety (chief complaint)Os teoarthritis (chief complaint)De generative joint disease (chief complaint)De generative disc disease (chief complaint) Generalized Anxiety DisorderOthe r chronic pain 0 7 No Informatio n EST-EXP PROB FOC/LOW COMPLEXITY [facility], [id number]- [facility], [place], [place], [id number], [place] tel:[phone] Family Medicine F1 No Information [address], [place], [address], [place]. tel:[phone] EST-EXP PROB FOC/LOW COMPLEXITY [facility], [id number]- [place], [place], [id number], [place] tel:[phone] Family Medicine F1 No Information Aug-2 2-200 8 [address]. [address], [place], [address], [place]. tel:[phone] EST-EXP PROB FOC/LOW COMPLEXITY [facility], [id number] [id number], [place] tel:[phone] Family Medicine F1 No Information Dec-1 8-200 8 [address]. [address] , [place], [place], [address], [place]. tel:[phone] [facility], [id number], [address], [place] tel:[phone] Family Medicine F1 No Information Dec-1 1-200 8 No Informatio n EST-PROB FOC/STR FORWARD [facility], [id number] [place], [place], [address], [place] tel:[phone] Family Medicine F1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 side effect profile and targeted symptoms. I explained other treatment options available. We also spoke about life style changes, including diet, exercise and substance abuse. Lastly, we spoke about continuing the treatment plan and what to do if conditions worsen.Follow up in 12 weeks, Call PRN with any issues. 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 We spoke about the risks and benefits of current medications and treatment plan. We also spoke about life style changes, including diet, exercise and substance abuse. Lastly we spoke about continuing the treatment plan and what to do if conditions worsen.Continue all medications as indicated, no changes necessary at this time.Follow-up: Return to clinic in 3 months for follow-up visit. Related to Major depressive disorder, recurrent, moderate I reviewed patient's chart including previous progress notes, lab data and nursing notes. We spoke about the risks and benefits of current medications and treatment plan. We also spoke about life style changes, including diet, exercise and substance abuse. Lastly we spoke about continuing the treatment plan and what to do if conditions worsen.Follow-up: Return to clinic in 3 months for follow-up visit. Related to Major depressive disorder, recurrent, moderate I reviewed patient's chart including previous progress notes, lab data and nursing notes. We spoke about the risks and benefits of current medications and treatment plan. We also spoke about life style changes, including diet, exercise and substance abuse. Lastly we spoke about continuing the treatment plan and what to do if conditions worsen.Continue all medications as indicated, no changes necessary at this time.Follow-up: Return to clinic in 3 months for follow-up visit. Related to Major depressive disorder, recurrent, moderate This visit was condu cted with the use of interactive audio and video telecommunications system which permits real-time, two -way communication between the patient and the provider. Consent for virtual visit was obtained in advance. Patient is located at clinic.Provider is located at offsite facility.Start time: 4:18pmStop time: 4:23pmI reviewed patient's chart including previous progress notes, lab data and nursing notes. We spoke about the risks and benefits of changes being made in medications, including possible drug/drug interactions and potential side effects. I explained the reason for the changes, i.e. better genetic match, different side effect profile and targeted symptoms. I explained other treatment options available. We also spoke about life style changes, including diet, exercise and substance abuse. Lastly we spoke about continuing the treatment plan and what to do if conditions worsen.Increase Gabapentin to 400mg TID.Follow-up: Return to clinic in 3 months for follow-up visit. Related to Major depressive disorder, recurrent, moderate Will refer patient [facility] for further evaluation and treatment. Related to Chronic obstructive pulmonary disease, unspecified I reviewed patient's chart including previous progress notes, lab data and nursing notes. We spoke about the risks and benefits of current medications and treatment plan. We also spoke about life style changes, including diet, exercise and substance abuse. Lastly we spoke about continuing the treatment plan and what to do if conditions worsen.Continue all medications as indicated, no changes necessary at this time.Follow-up: Return to clinic in 8 weeks for follow-up visit. Related to Major depressive disorder, recurrent, moderate I reviewed patient's chart including previous progress notes, lab data and nursing notes. We spoke about the risks and benefits of changes being made in medications, including possible drug/drug interactions and potential side effects. I explained the reason for the changes, i.e. better genetic match, different side effect profile and targeted symptoms. I explained other treatment options available. We also spoke about life style changes, including diet, exercise and substance abuse. Lastly we spoke about continuing the treatment plan and what to do if conditions worsen.Follow-up: Return to clinic in 4 weeks for follow-up visit. Related to Major depressive disorder, recurrent, moderate Will start Nicotine patches with a tapering dose. Related to Tobacco use Pulmonology referral ordered. Re lated to Sleep apnea, unspecified I reviewed patient's chart including previous progress notes, lab data and nursing notes. We spoke about the risks and benefits of changes being made in medications, including possible drug/drug interactions and potential side effects. I explained the reason for the changes, i.e. better genetic match, different side effect profile and targeted symptoms. I explained other treatment options available. We also spoke about life style changes, including diet, exercise and substance abuse. Lastly we spoke about continuing the treatment plan and what to do if conditions worsen.Continue all medications as indicated.Follow-up: Return to clinic in 8 weeks for follow-up visit. Related to Major depressive disorder, recurrent, moderate I reviewed patient's chart including previous progress notes, lab data and nursing notes. We spoke about the risks and benefits of current medications and treatment plan. We also spoke about life style changes, including diet, exercise and substance abuse. Lastly we spoke about continuing the treatment plan and what to do if conditions worsen.Referral to Pain Management (Dr. Henley) was completed on 04/26/19.Continue all medications as indicated, no changes necessary at this time.Follow-up: Return to clinic in 8 weeks for follow-up visit. Related to Major depressive disorder, recurrent, moderate Patient is to get he r X-ray results from [facility].Will refer patient to Dr. Henley for further evaluation and treatment. Related to Neuropathy I reviewed patient's chart including previous progress notes, lab data and nursing notes. We spoke about the risks and benefits of changes being made in medications, including possible drug/drug interactions and potential side effects. I explained the reason for the changes, i.e. better genetic match, different side effect profile and targeted symptoms. I explained other treatment options available. We also spoke about life style changes, including diet, exercise and substance abuse. Lastly we spoke about continuing the treatment plan and what to do if conditions worsen.Increase Cymbalta to 60mg Q daily.Follow-up: Return to clinic in 8 weeks for follow-up visit. Related to Major depressive disorder, recurrent, moderate I reviewed patient's chart including previous progress notes, lab data and nursing notes. We spoke about the risks and benefits of changes being made in medications, including possible drug/drug interactions and potential side effects. I explained the reason for the changes, i.e. better genetic match, different side effect profile and targeted symptoms. I explained other treatment options available. We also spoke about life style changes, including diet, exercise and substance abuse. Lastly we spoke about continuing the treatment plan and what to do if conditions worsen.Restart Cymbalta at 30mg Q daily.Follow-up: Return to clinic in 8 weeks for follow-up visit. Related to Major depressive disorder, recurrent, moderate I reviewed patient's chart including previous progress notes, lab data and nursing notes. We spoke about the risks and benefits of current medications and treatment plan. We also spoke about life style changes, including diet, exercise and substance abuse. Lastly we spoke about continuing the treatment plan and what to do if conditions worsen.Taper off Klonopin (reduce to 0.5mg BID x1 week, then 1/2 BID x1 week, then 1/2 Q daily x1 week, then discontinue).Follow-up: Return to clinic in 8 weeks for follow-up visit. Related to Generalized Anxiety Disorder I reviewed patient's chart including previous progress notes, lab data and nursing notes. We spoke about the risks and benefits of changes being made in medications, including possible drug/drug interactions and potential side effects. I explained the reason for the changes, i.e. better genetic match, different side effect profile and targeted symptoms. I explained other treatment options available. We also spoke about life style changes, including diet, exercise and substance abuse. Lastly we spoke about continuing the treatment plan and what to do if conditions worsen.Add Cymbalta 30mg Q daily x1 week then increase to 60mg Q daily.Follow-up: Return to clinic in 4 weeks for follow-up visit. Related to Major depressive disorder, recurrent, moderate I reviewed patient's chart including previous progress notes, lab data and nursing notes. We spoke about the risks and benefits of current medications and treatment plan. We also spoke about life style changes, including diet, exercise and substance abuse. Lastly we spoke about continuing the treatment plan and what to do if conditions worsen.Continue all medications as indicated, no changes necessary at this time.Follow-up: Return to clinic in 8 weeks for follow-up visit. Related to Major depressive disorder, recurrent, moderate I reviewed patient's chart including previous progress notes, lab data and nursing notes. We spoke about the risks and benefits of changes being made in medications, including possible drug/drug interactions and potential side effects. I explained the reason for the changes, i.e. better genetic match, different side effect profile and targeted symptoms. I explained other treatment options available. We also spoke about life style changes, including diet, exercise and substance abuse. Lastly we spoke about continuing the treatment plan and what to do if conditions worsen.Add Wellbutrin XL 150mg QAM.Follow-up: Return to clinic in 4 weeks for follow-up visit. 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 We spoke about the risks and benefits of current medications and treatment plan. We also spoke about life style changes, including diet, exercise and substance abuse. Lastly we spoke about continuing the treatment plan and what to do if conditions worsen.No medication changes necessary at this time.Follow-up: Patient is to schedule with her PCP for follow-up care.Discussed substance use and most recent urine drug screen as well as appropriate use of prescribed medications. Patient expressed understanding of the requirements and responsibilities which are expected in order to continue with current medications. Related to Major depressive disorder, recurrent, moderate I reviewed patient's chart including previous progress notes, lab data and nursing notes. We spoke about the risks and benefits of changes being made in medications, including possible drug/drug interactions and potential side effects. I explained the reason for the changes, i.e. better genetic match, different side effect profile and targeted symptoms. I explained other treatment options available. We also spoke about life style changes, including diet, exercise and substance abuse. Lastly we spoke about continuing the treatment plan and what to do if conditions worsen.No changes necessary at this time.Follow-up: Return to clinic in 2 weeks for follow-up visit. Related to Major depressive disorder, recurrent, moderate Patient has been efra kvng on a 2 week protocol secondary to the possible overuse of controlled medications and/or use of street drugs.UDS will be obtained at patient's next visit for routine monitoring purposes. Related to Chronic pain syndrome I reviewed patient's chart including previous progress notes, lab data and nursing notes. We spoke about the risks and benefits of changes being made in medications, including possible drug/drug interactions and potential side effects. I explained the reason for the changes, i.e. better genetic match, different side effect profile and targeted symptoms. I explained other treatment options available. We also spoke about life style changes, including diet, exercise and substance abuse. Lastly we spoke about continuing the treatment plan and what to do if conditions worsen.No medication changes necessary at this time.Follow-up: Return to clinic in 2 weeks for follow-up visit. Related to Major depressive disorder, recurrent, moderate Start Cymbalta at 30 mg QHS x1 week then increase to 60mg QHS. Related to Intervertebral disc disorder w/ radiculopathy of lumbosacral region Increase Trintellix to 20mg QHS.Follow-up: Return to clinic in 4 weeks for follow-up visit. Related to Major depressive disorder, recurrent, moderate Discontinue Methadon e.Start Dilaudid 8mg BID.Follow-up: Return to clinic in 4 weeks for follow-up visit.Current medications prescribed by this provider:Trintellix 10mg QHS (no Rx needed)Buspirone 30mg BID (no Rx needed)Dilaudid 8mg BID (#56, no refills) Related to Major depressive disorder, recurrent, moderate Referral to huey talamantes for grade 2 listhesis of 19mm Related to Spondylolisthesis, lumbar region Pain medicaiton was renewed today without change to dose. Continue current muscle relaxant-Continue Ibuprofen for arthritic pain control. Continue/Start Gabapentin as directed. Side effects discussed in detail. Continue being physically active. This is the [place] to managing they arthritis within your spine-Core strengthening is necessary. Medication risk/benefit discussed. Caution with driving until you know how you will react to this medication. Treatment goal and patient education were discussed today.>>>Return to clinic in weeks<<< Related to Chronic pain syndrome No changes necessary at this time.Follow-up: Return to clinic in 4 weeks for follow-up visit.Current medications prescribed by this provider:Trintellix 10mg QHS (#28, 2 refills given on 10/28/17)Buspar 30mg BID (#56, 2 refills given on 10/28/17)Methadone 10mg QID (#112, no refills) Related to Major depressive disorder, recurrent, moderate Lifestyle education Related to D ental Examination Start Trintellix 10m g QHS.Follow-up: Return to clinic in 4 weeks for follow-up visit.Current medications prescribed by this provider:Trintellix 10mg QHS (#28, 1 refill given on 09/29/17)Buspar 30mg BID (#56, 1 refill given on 09/29/17)Methadone 10mg QID (#112, no refills) Related to Major depressive disorder, recurrent, moderate Weight control education Related to Other long-term (current) drug therapy Follow-up: Return to clinic in 4 weeks for follow-up visit.Current medications prescribed by this provider:Methadone 10mg QID (#112, no refills) Related to Major depressive disorder, recurrent, moderate POC UDS will be obta ined at patient's next visit for routine monitoring purposes. 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 Related to Generalized Anxiety Disorder Will start the proce ss of completely tapering off Klonopin today.Start Buspar at 30mg QHS x1 week then increase to BID. Related to Generalized Anxiety Disorder POC UDS will be obta ined at patient's next visit for routine monitoring purposes. 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 Start Cymbalta 50mg QHS.Follow-up: Return to clinic in 4 weeks for follow-up visit.Current medications prescribed by this provider:Klonapin 0.5mg TID (#84, no refills)Methadone 10mg QID (#112, no refills)Cymbalta 60mg QHS (#28, 1 refill given on 07/08/17) Related to Major depressive disorder, recurrent, moderate No changes necessary at this time.Follow-up: Return to clinic in 4 weeks for follow-up visit.Current medications prescribed by this provider:Methadone 10mg QID (no refills)Klonopin 0.5mg TID (no refills) Related to Generalized Anxiety Disorder No changes necessary at this earl e. Related to Other chronic pain No changes necessary at this time.Follow-up: Return to clinic in 4 weeks for follow-up visit. Related to Generalized Anxiety Disorder As per patient privacy policy some of the clinical information may not be visible. Assessments Type Assessment Date No Information Patient Care Teams Name Effective Dates (start - stop) Status Members No Information
--- OUTSIDE RECORDS SUMMARY | 2025-05-04 12:10 | XMS_ITS | Encounter Summary ---
Author Organization [facility] Address [address] [place] [address] Care Team Providers Care Seed Cleaning Manager Name Role Phone Maria Luisa Juarez Primary Care Provider [phone] Encounter Details Date Type Department Care Team (Late st Contact Info) Description 06/02/2008 Outpatient Historical [facility] Physical Therapy OP [address] [address] [place] [address] Renaldo Wyman MD NO ADDRESS ON FILE Lumbago Social History Tobacco Use Types Packs/Day Years Used Date Smoking Tobacco: Never Assessed Comments Unknown Sex and Gender Information Value Date Recorded Sex Assigned at Not on file 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
--- OUTSIDE RECORDS SUMMARY | 2025-05-04 12:10 | XMS_ITS | Encounter Summary ---
Author Organization [facility] Address [address] [place] [address] Care Team Providers Care Firearms Model Maker Name Role Phone Maria Luisa Juarez Primary Care Provider [phone] Encounter Details Date Type Department Care Team (Late st Contact Info) Description 06/24/1998 Emergency [facility] Emergency Services [address] [place] [phone] Levy Julio DO NO ADDRESS ON FILE Ed, Physician NO ADDRESS ON FILE Sprain of sacrum (Primary Dx) Social History Tobacco Use Types Packs/Day Years Used Date Smoking Tobacco: Never Assessed Comments Unknown Sex and Gender Information Value Date Recorded Sex Assigned at Not on file 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
--- OUTSIDE RECORDS SUMMARY | 2025-05-04 12:10 | XMS_ITS | Encounter Summary ---
Author Organization [facility] Address [address] [place] [address] Care Team Providers Care Instrument Maker Name Role Phone Maria Luisa Juarez Primary Care Provider [phone] Encounter Details Date Type Department Care Team (Late st Contact Info) Description 05/03/2008 Outpatient Historical [facility] ADMISSION Rochelle Velasquez I, ROCHELLE [address] [place] [phone] Social History Tobacco Use Types Packs/Day Years Used Date Smoking Tobacco: Never Assessed Comments Unknown Sex and Gender Information Value Date Recorded Sex Assigned at Not on file 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
--- OUTSIDE RECORDS SUMMARY | 2025-05-04 12:10 | XMS_ITS | Encounter Summary ---
Author Organization [facility] Address [address] [place] [address] Care Team Providers Care Gas Station Cashier Name Role Phone Maria Luisa Juarez Primary Care Provider [phone] Encounter Details Date Type Department Care Team (Latest Contact Info) Description 05/01/1998 Outpatient Historical [facility] [place], Rupert Manzanares MD NO ADDRESS ON FILE Supervision of other normal (Primary Dx) Social History Tobacco Use Types Packs/Day Years Used Date Smoking Tobacco: Never Assessed Comments Unknown Sex and Gender Information Value Date Recorded Sex Assigned at Not on file 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
--- OUTSIDE RECORDS SUMMARY | 2025-05-04 12:10 | XMS_ITS | Encounter Summary ---
Author Organization [facility] Address [address] [place] [address] Care Team Providers Care Academic Coordinator Name Role Phone Maria Luisa Juarez MEDICAL CHIEF TECHNICIAN Primary Care Provider [phone] Encounter Details Date Type Department Care Team (Latest Contact Info) Description 04/26/2008 Outpatient Historical [facility] [place]- [place] [address] [place] [phone] Da Nicole MD [address] [place] [address] Opioid Type Dependence, Continuous Abuse (CMS/[facility]) Social History Tobacco Use Types Packs/Day Years Used Date Smoking Tobacco: Never Assessed Comments Unknown Sex and Gender Information Value Date Recorded Sex Assigned at Not on file 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 Gender Identity Not on file Sexual Orientation Not on file documented as of this encounter Plan of Treatment Not on file documented as of this encounter Procedures Procedure Name Priority Date/Time Associated Diagnosis Comments DRUG SCREEN, URINE Routine 04/26/2008 4: 53 PM CDT documented in this encounter Results * (ABNORMAL) DRUG SCREEN, URINE (04/26/2008 4:53 PM CDT) OPIATE QUAL, URINE Drug Positive(A) Drug Negative [facility] PCP QUAL, URINE Drug Negative Drug Negative [facility] BARBITURATE QUAL, URINE Drug Negative Drug Negative [facility] CANNABINOIDS QUAL, URINE Drug Positive(A) Drug Negative [facility] COCAINE QUAL URINE Drug Negative Drug Negative [facility] BENZODIAZEPINE QUAL, URINE Drug Positive(A) Drug Negative [facility] AMPHETAMINE QUAL, URINE Drug Negative Drug Negative [facility] Comment: All components of the Urine Drug Screen are performed by Immunoassay. Confirmation must be requested by physician before being sent out. NOTE: The ingestion of natural herbal and plant products containing Ephedra/Ephedra metabolites can produce in urine one or more substances capable of cross reacting with amphetamine/methamphetamine immunoassays. This test provides a preliminary result only. A more specific alternative chemical method must be used to obtain a confirmed analytical result. Drug Screening Cutoff Amphetamine/Methamphetamine 1000 ng/ml Barbiturates 200 ng/ml Benzodiazepines 200 ng/ml Cannabinoid 50 ng/ml Cocaine Metabolite 300 ng/ml Opiates 300 ng/ml PCP 25 ng/ml Immunoassay Screening results above cutoff value are reported as Positive. 04/26/2008 4:53 PM CDT 04/27/2008 6:28 PM CDT Da Nicole MD URINE ORDERABLES Final Result Performing Organization Address City/State/[facility] Co de Phone Number INTERFACE SYSTEM Refer to clinic/hospital department [facility] CLIA# [id number] [address] [place] [address] documented in this encounter Visit Diagnoses Diagnosis Opioid type dependence, continuous (CMS/[facility]) Opioid type dependence, continuous documented in this encounter Care Teams Academic Coordinator Relationship Specialty Start Date End Date Maria Luisa Juarez FNP PCP - General NURSE PRACTITIONER 10/02/17 documented as of this encounter
--- OUTSIDE RECORDS SUMMARY | 2025-05-04 12:10 | XMS_ITS | Clinical Summary ---
Author Organization [facility] Address [address] [place] [address] Care Team Providers Care Well Logging Captain Name Role Phone Maria Luisa Juarez [facility] Primary Care Provider [phone] Allergies Active Allergy Reactions Criticality Noted Date Comments Ketorolac Shortness of Breath/Wheezing High 012 Medications DULoxetine (CYMBALTA) 60 mg Capsule, Delayed Release(E.C.) Take 60 mg by mouth daily. Active gabapentin (NEURONTIN) 400 mg capsule Take 400 mg by mouth 3 times daily. Active buprenorphine-na loxone (Zubsolv) 11.4-2.9 mg Tablet, Sublingual Place 1 Tablet under tongue 2 times daily. Active cholecalciferol 1,250 mcg (50,000 unit) Capsule Take 50,000 Units by mouth every 7 days. Active budesonide-formo teroL (SYMBICORT) 160-4.5 mcg/actuation HFA Aerosol Inhaler Take 2 Puffs by inhalation 2 times daily. Active fluticasone propionate (FLONASE) 50 mcg/spray [place], Suspension nasal inhalerIndicatio ns:Tonsillar hypertrophy SHAKE LIQUID AND USE 2 SPRAYS IN EACH NOSTRIL DAILY 16 Gram 2 0 Active Active Problems Problem Noted Date Diagnosed Date Chronic pain 04/14/2014 Substance induced mood disorder 02/24/2013 Polysubstance dependence 02/24/2013 Personality disorder, nos 02/24/2013 Fibromyalgia syndrome 06/15/2008 COPD (chronic obstructive pulmonary disease) 05/2008 Acute bronchitis 06/15/2008 Obesity 06/15/2008 Tobacco use disorder 06/15/2008 Bipolar affective disorder 05/18/2008 Opioid type dependence, continuous 05/05/2008 Immunizations Immunization Administration Dates Next Due INFLUENZA VACCINE QUADRIVALENT 3 YR UP PF IM Influenza Seasonal Unspecified Formulation IM Family History Medical History Relation Name Comments Healthy Brother 1 Healthy Brother 2 Healthy Daughter 1 Healthy Daughter 2 Healthy Daughter 3 Healthy Mother Relation Name Status Comments Brother 1 Alive Brother 2 Alive Daughter 1 Alive Daughter 2 Alive Daughter 3 Alive Father Other Mother Alive Social History Tobacco Use Types Packs/Day Years Used Date Smoking Tobacco: Every Day Cigarettes 1 27 Smokeless Tobacco: Never Alcohol Use Standard Drinks/Week Comments No 0 (1 standard drink = 0.6 oz pur e alcohol) Comments No Sex and Gender Information Value Date Recorded Sex Assigned at Not on file 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 Gender Identity Not on file Sexual Orientation Not on file Occupation Industry Job Start Date Job End Date Not on file Not on file Not on file Not on file Last Filed Vital Signs Vital Sign Reading Time Taken Comments Blood Pressure 106/72 03/14/2020 3:50 PM CDT Pulse 84 03/14/2020 3:50 PM CDT Temperature 36.4 C (97.6 F) 03/14/2020 3:50 PM CDT Respiratory Rate 24 03/14/2020 3:50 PM CDT Oxygen Saturation 93% 03/14/2020 3:50 PM CDT Inhaled Oxygen Concentration - - Weight 105.2 kg (232 lb) 03/14/2020 3:50 PM CDT Height 154.9 cm (5' 1 ) 03/14/2020 3:50 PM CDT Body Mass Index 43.84 03/14/2020 3:50 PM CDT Plan of Treatment Health Maintenance Due Date Last Done Comments DTAP/TDAP/TD VACCINES (1 - Tdap) 1987 HEPATITIS B VACCINES (1 of 3 - 19+ 3-dose series) 1987 HPV/Cotest (21-29) 1989 CERVICAL CANCER SCREENING 1998 HPV/Cotest (30-65) 1998 PAP SMEAR 1998 BREAST CANCER SCREENING 2008 COLORECTAL SCREENING 2013 Colorectal Cancer Screening 2013 FIT-DNA Q 3 years 2013 FIT/FOBT Q 1 year 2013 Flex Sig/CT Colonography Q 5 years 2013 ZOSTER VACCINE (1 of 2) 2018 INFLUENZA VACCINE (#1) 2025 05/31/2014, 2005 Insurance MEDICAID [place] Advance Directives For more information, please contact: [phone] * Full Code (Latest Code Status on File) Date Activated Date Inactivated Comments 02/23/2013 6:57 PM 02/28/2013 6:04 PM Care Teams Well Logging Captain Relationship Specialty Start Date End Date Maria Luisa Juarez FNP PCP - General NURSE PRACTITIONER 10/02/17
--- OUTSIDE RECORDS SUMMARY | 2025-05-04 12:10 | XMS_ITS | Encounter Summary ---
Author Organization [facility] Address [address] [place] [address] Care Team Providers Care Bilingual Administrative Assistant Name Role Phone Maria Luisa Juarez Primary Care Provider [phone] Encounter Details Date Type Department Care Team (Latest Contact Info) Description 05/01/1998 Outpatient Historical [facility] [place], Rupert Manzanares MD NO ADDRESS ON FILE Supervision of other normal (Primary Dx) Social History Tobacco Use Types Packs/Day Years Used Date Smoking Tobacco: Never Assessed Comments Unknown Sex and Gender Information Value Date Recorded Sex Assigned at Not on file 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
--- OUTSIDE RECORDS SUMMARY | 2025-05-04 12:10 | XMS_ITS | Encounter Summary ---
Author Organization [facility] Address [address] [place] [address] Care Team Providers Care Plate Filler Name Role Phone Maria Luisa Juarez Primary Care Provider [phone] Encounter Details Date Type Department Care Team (Latest Contact Info) Description 04/25/2008 Outpatient Historical [facility] Chronic Pain [address] [place] [phone] Renaldo Wyman MD NO ADDRESS ON FILE Thoracic or Lumbosacral Neuritis or Radiculitis, Unspecified; Other Pain Disorders Related to Psychological Factors Social History Tobacco Use Types Packs/Day Years Used Date Smoking Tobacco: Never Assessed Comments Unknown Sex and Gender Information Value Date Recorded Sex Assigned at Not on file 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
--- OUTSIDE RECORDS SUMMARY | 2025-05-04 12:10 | XMS_ITS | Encounter Summary ---
Author Organization [facility] Address [address] [place] [address] Care Team Providers Care Data Collection Associate Name Role Phone Maria Luisa Juarez Primary Care Provider [phone] Encounter Details Date Type Department Care Team (Latest Contact Info) Description 05/27/2008 Outpatient Historical [facility] Chronic Pain [address] 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
--- OUTSIDE RECORDS SUMMARY | 2025-05-04 12:10 | XMS_ITS | Encounter Summary ---
Author Organization [facility] Address [address] [place] [address] Care Team Providers Care Bid Writer Name Role Phone Maria Luisa Juarez Primary Care Provider [phone] Encounter Details Date Type Department Care Team (Late st Contact Info) Description 05/10/2008 Outpatient Historical [facility] [address] [place] [phone] Other, Sgf NO ADDRESS ON FILE Social History Tobacco Use Types Packs/Day Years Used Date Smoking Tobacco: Never Assessed Comments Unknown Sex and Gender Information Value Date Recorded Sex Assigned at Not on file Legal Sex Female 6:18 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
--- OUTSIDE RECORDS SUMMARY | 2025-05-04 12:10 | XMS_ITS | Encounter Summary ---
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
--- OUTSIDE RECORDS SUMMARY | 2025-05-04 12:10 | XMS_ITS | Encounter Summary ---
Author Organization [facility] Address [address] [place] [address] Care Team Providers Care Grinder Outside Diameter Name Role Phone Maria Luisa Juarez Primary Care Provider [phone] Encounter Details Date Type Department Care Team (Late st Contact Info) Description 06/25/[address] 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
--- OUTSIDE RECORDS SUMMARY | 2025-05-04 12:10 | XMS_ITS | Encounter Summary ---
Author Organization [facility] Address [address] [place] [address] Care Team Providers Care Heater Operator Name Role Phone Maria Luisa Juarez WASHER REPAIRMAN Primary Care Provider [phone] Encounter Details Date Type Department Care Team (Latest Contact Info) Description 05/05/2008 Outpatient Historical [facility] [place]- [place] [address] [place] [phone] Sp Franco MD [address] 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 Gender Identity Not on file Sexual Orientation Not on file documented as of this encounter Plan of Treatment Not on file documented as of this encounter Procedures Procedure Name Priority Date/Time Associated Diagnosis Comments DRUG SCREEN, URINE Routine 05/05/2008 2: 23 PM CDT documented in this encounter Results * (ABNORMAL) DRUG SCREEN, URINE (05/05/2008 2:23 PM CDT) PCP QUAL, URINE Drug Negative Drug Negative [facility] OPIATE QUAL, URINE Drug Positive(A) Drug Negative [facility] BARBITURATE QUAL, URINE Drug Negative Drug Negative [facility] CANNABINOIDS QUAL, URINE Drug Negative Drug Negative [facility] COCAINE QUAL URINE Drug Negative Drug Negative [facility] BENZODIAZEPINE QUAL, URINE Drug Positive(A) Drug Negative [facility] AMPHETAMINE QUAL, URINE Drug Negative Drug Negative [facility] Comment: All components of the Urine [...] above cutoff value are reported as Positive. 05/05/2008 2:23 PM CDT 05/05/2008 9:32 PM CDT us Sp Franco MD URINE ORDERABLES Final Resul t INTERFACE SYSTEM Refer to clinic/hospital department [facility] CLIA# [id number] [address] [place] [address] documented in this encounter Visit Diagnoses Diagnosis Opioid type dependence, continuous (CMS/HCC) Opioid type dependence, continuous documented in this encounter Care Teams Heater Operator Relationship Specialty Start Date End Date Maria Luisa Juarez FNP PCP - General NURSE PRACTITIONER 10/02/17 documented as of this encounter
--- OUTSIDE RECORDS SUMMARY | 2025-05-04 12:10 | XMS_ITS | Encounter Summary ---
Author Organization [facility] Address [address] [place] [address] Care Team Providers Care Pricing Intern Name Role Phone Maria Luisa Juarez Primary Care Provider [phone] Encounter Details Date Type Department Care Team (Latest Contact Info) Description 12/27/1998 Outpatient Historical [facility] Craig Melraa PA [address] [place] [phone] Acquired spondylolisthesis (Primary Dx) Social History Tobacco Use Types Packs/Day Years Used Date Smoking Tobacco: Never Assessed Comments Unknown Sex and Gender Information Value Date Recorded Sex Assigned at Not on file 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
--- OUTSIDE RECORDS SUMMARY | 2025-05-04 12:10 | XMS_ITS | Encounter Summary ---
Author Organization [facility] Address [address] 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
--- OUTSIDE RECORDS SUMMARY | 2025-05-04 12:10 | XMS_ITS | Encounter Summary ---
Author Organization [facility] Address [address] 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
--- OUTSIDE RECORDS SUMMARY | 2025-05-04 12:10 | XMS_ITS | Encounter Summary ---
Author Organization [facility] Address [address] [place] [address] Care Team Providers Care Print Washer Name Role Phone Maria Luisa Juarez Primary Care Provider [phone] Encounter Details Date Type Department Care Team (Late st Contact Info) Description 05/21/2008 Emergency [facility] Emergency Department [address] [place] [phone] Ed, Physician NO ADDRESS ON FILE April Coleman FNP NO ADDRESS ON FILE Unspecified Myalgia and Myositis; Tobacco Use Disorder; Encounter for Long-Term (Current) Use of Other Medications Social History Tobacco Use Types Packs/Day Years Used Date Smoking Tobacco: Never Assessed Comments Unknown Sex and Gender Information Value Date Recorded Sex Assigned at Not on file 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
--- OUTSIDE RECORDS SUMMARY | 2025-05-04 12:10 | XMS_ITS | Encounter Summary ---
Author Organization [facility] Address [address] [place] [address] Care Team Providers Care Housekeeper/Laundry Assistant Name Role Phone Maria Luisa Juarez Primary Care Provider [phone] Encounter Details Date Type Department Care Team (Late st Contact Info) Description 05/27/1998 Emergency [facility] [address] [place] [phone] Laron Serra, Sj Ed, Physician NO ADDRESS ON FILE Urinary tract infection, site not specified (Primary Dx) Social History Tobacco Use Types Packs/Day Years Used Date Smoking Tobacco: Never Assessed Comments Unknown Sex and Gender Information Value Date Recorded Sex Assigned at Not on file 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
--- OUTSIDE RECORDS SUMMARY | 2025-05-04 12:10 | XMS_ITS | Encounter Summary ---
Author Organization [facility] Address [address] [place] [address] Care Team Providers Care Almond Pan Finisher Name Role Phone Maria Luisa Juarez Primary Care Provider [phone] Encounter Details Date Type Department Care Team (Late st Contact Info) Description 05/02/2008 Outpatient Historical [facility] Physical Therapy [address] [place] [address] [place] [address] Renaldo Wyman MD NO ADDRESS ON FILE Lumbago Social History Tobacco Use Types Packs/Day Years Used Date Smoking Tobacco: Never Assessed Comments Unknown Sex and Gender Information Value Date Recorded Sex Assigned at Not on file 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
--- OUTSIDE RECORDS SUMMARY | 2025-05-04 12:10 | XMS_ITS | Encounter Summary ---
Author Organization [facility] Address [address] [place] [address] Care Team Providers Care Production Clerks Supervisor Name Role Phone Maria Luisa Juarez Primary Care Provider [phone] Encounter Details Date Type Department Care Team (Latest Contact Info) Description 08/08/1999 Outpatient Historical [facility] Zack Contreras MD NO ADDRESS ON FILE Acquired spondylolisthesis (Primary Dx) Social History Tobacco Use Types Packs/Day Years Used Date Smoking Tobacco: Never Assessed Comments Unknown Sex and Gender Information Value Date Recorded Sex Assigned at Not on file Legal Sex Female 6:18 AM ESCORT BLIND Gender Identity Not on file Sexual Orientation Not on file documented as of this encounter Plan of Treatment Not on file documented as of this encounter Visit Diagnoses Diagnosis Acquired spondylolisthesis- Primary documented in this encounter Care Teams Production Clerks Supervisor Relationship Specialty Start Date End Date Maria Luisa Juarez FNP PCP - General NURSE PRACTITIONER 10/02/17 documented as of this encounter
--- OUTSIDE RECORDS SUMMARY | 2025-05-04 12:10 | XMS_ITS | Encounter Summary ---
Author Organization [facility] Address [address] Tavarezn: Epic Prelude ADT JESUS ALBERTO ORTIZ [address] Care Team Providers Care Spinning Lathe Operator Hydraulic Name Role Phone Maria Luisa Juarez Primary Care Provider [phone] Encounter Details Date Type Department Care Team ([facility] st Contact Info) Description 11/21/2000 Outpatient Historical Non-Staff, Physician NO ADDRESS ON FILE Social History Tobacco Use Types Packs/Day Years Used Date Smoking Tobacco: Never Assessed Comments Unknown Sex and Gender Information Value Date Recorded Sex Assigned at Not on file Legal Sex Female 6:18 AM BORDER PATROL OFFICER Gender Identity Not on file Sexual Orientation Not on file documented as of this encounter Plan of Treatment Not on file documented as of this encounter Visit Diagnoses Not on filedocumented in this encounter Care Teams Spinning Lathe Operator Hydraulic Relationship Specialty Start Date End Date Maria Luisa Juarez FNP PCP - General NURSE PRACTITIONER 10/02/17 documented as of this encounter
--- OUTSIDE RECORDS SUMMARY | 2025-05-04 12:10 | XMS_ITS | Encounter Summary ---
Author Organization [facility] Address [address] [place] [address] Care Team Providers Care Digestion Operator Name Role Phone Maria Luisa Juaerz Primary Care Provider [phone] Encounter Details Date Type Department Care Team (Latest Contact Info) Description 01/08/1999 Outpatient Historical [facility] Zack Contreras MD NO ADDRESS ON FILE Acquired spondylolisthesis (Primary Dx) Social History Tobacco Use Types Packs/Day Years Used Date Smoking Tobacco: Never Assessed Comments Unknown Sex and Gender Information Value Date Recorded Sex Assigned at Not on file Legal Sex Female 6:18 AM AIR LAUNCH WEAPONS TECHNICIAN Gender Identity Not on file Sexual Orientation Not on file documented as of this encounter Plan of Treatment Not on file documented as of this encounter Visit Diagnoses Diagnosis Acquired spondylolisthesis- Primary documented in this encounter Care Teams Digestion Operator Relationship Specialty Start Date End Date Maria Luisa Juarez FNP PCP - General NURSE PRACTITIONER 10/02/17 documented as of this encounter
--- OUTSIDE RECORDS SUMMARY | 2025-05-04 12:10 | XMS_ITS | Encounter Summary ---
Author Organization [facility] Address [address] [place] [address] Care Team Providers Care Apple Picking Supervisor Name Role Phone Maria Luisa Juarez Primary Care Provider [phone] Encounter Details Date Type Department Care Team (Latest Contact Info) Description 02/19/1999 Outpatient Historical [facility] Zack Contreras MD NO ADDRESS ON FILE Acquired spondylolisthesis (Primary Dx) Social History Tobacco Use Types Packs/Day Years Used Date Smoking Tobacco: Never Assessed Comments Unknown Sex and Gender Information Value Date Recorded Sex Assigned at Not on file Legal Sex Female 6:18 AM SHOVEL ENGINEER Gender Identity Not on file Sexual Orientation Not on file documented as of this encounter Plan of Treatment Not on file documented as of this encounter Visit Diagnoses Diagnosis Acquired spondylolisthesis- Primary documented in this encounter Care Teams Apple Picking Supervisor Relationship Specialty Start Date End Date Maria Luisa Juarez FNP PCP - General NURSE PRACTITIONER 10/02/17 documented as of this encounter
--- OUTSIDE RECORDS SUMMARY | 2025-05-04 12:10 | XMS_ITS | Encounter Summary ---
Author Organization [facility] Address [address] [place] [address] Care Team Providers Care Carding Machine Operator Name Role Phone Maria Luisa Juarez Primary Care Provider [phone] Encounter Details Date Type Department Care Team (Latest Contact Info) Description 04/04/1999 Outpatient Historical [facility] Zack Contreras MD NO ADDRESS ON FILE Acquired spondylolisthesis (Primary Dx) Social History Tobacco Use Types Packs/Day Years Used Date Smoking Tobacco: Never Assessed Comments Unknown Sex and Gender Information Value Date Recorded Sex Assigned at Not on file Legal Sex Female 6:18 AM ELECTRONICS ENGINEERING MANAGER Gender Identity Not on file Sexual Orientation Not on file documented as of this encounter Plan of Treatment Not on file documented as of this encounter Visit Diagnoses Diagnosis Acquired spondylolisthesis- Primary documented in this encounter Care Teams Carding Machine Operator Relationship Specialty Start Date End Date Maria Luisa Juarez FNP PCP - General NURSE PRACTITIONER 10/02/17 documented as of this encounter
--- OUTSIDE RECORDS SUMMARY | 2025-05-04 12:10 | XMS_ITS | Encounter Summary ---
Author Organization [facility] Address [address] [place] [address] Care Team Providers Care Liquor Bridge Operator Helper Name Role Phone Maria Luisa Juarez Primary Care Provider [phone] Encounter Details Date Type Department Care Team (Late st Contact Info) Description 04/24/1998 Outpatient Historical [facility] Social History Tobacco Use Types Packs/Day Years Used Date Smoking Tobacco: Never Assessed Comments Unknown Sex and Gender Information Value Date Recorded Sex Assigned at Not on file Legal Sex Female 6:18 AM REGISTERED DENTAL ASSISTANT Gender Identity Not on file Sexual Orientation Not on file documented as of this encounter Plan of Treatment Not on file documented as of this encounter Visit Diagnoses Not on filedocumented in this encounter Care Teams Liquor Bridge Operator Helper Relationship Specialty Start Date End Date Maria Luisa Juarez FNP PCP - General NURSE PRACTITIONER 10/02/17 documented as of this encounter
--- NOTE | 2025-05-04 12:11 | CT_ITS ---
WS: [id number] CT HEAD TECHNIQUE: Noncontrast CT of the head obtained from the skullbase to the vertex. CLINICAL INFORMATION: Patient with metastatic cancer, right-sided headache COMPARISON: 08/04/2024 DLP: 1096.[address] scans at [facility] use at least one of these dose optimization techniques: automated exposure control; mA and/or kV adjustment per patient size (includes targeted exams where dose is matched to clinical indication); or iterative reconstruction. FINDINGS: No evidence of intracranial hemorrhage or mass effect. Ventricular system and basal cisterns are patent. Minimal small vessel changes with mild parenchymal volume loss. No extra-axial fluid collections. No evidence of mass or mass effect. Paranasal sinuses and mastoid air cells are well aerated. .Normal visualized soft tissues. CT/CT head wo con* 09939 IMPRESSION: 1. No evidence of intracranial hemorrhage or mass effect. 2. No acute intracranial findings.
--- OUTSIDE RECORDS SUMMARY | 2025-05-04 12:11 | XMS_ITS | Encounter Summary ---
Author Organization [facility] Address [address] [place] [address] Care Team Providers Care Laser Technician Name Role Phone Maria Luisa Juarez Primary Care Provider [phone] Encounter Details Date Type Department Care Team (Latest Contact Info) Description 03/18/[address] [facility] [place] [address] [place] [phone] Sp Franco MD [address] [facility] [address] [place] [address] Unspecified Backache (Primary Dx); Periapical Abscess; Anxiety State, Unspecified Social History Tobacco Use Types Packs/Day Years Used Date Smoking Tobacco: Never Assessed Comments Unknown Sex and Gender Information Value Date Recorded Sex Assigned at Not on file Legal Sex Female 6:18 AM SENIOR INFORMATION SECURITY CONSULTANT Gender Identity Not on file Sexual Orientation Not on file documented as of this encounter Plan of Treatment Not on file documented as of this encounter Visit Diagnoses Diagnosis Backache, unspecified- Primary Periapical abscess Periapical abscess without sinus Anxiety state, unspecified documented in this encounter Care Teams Laser Technician Relationship Specialty Start Date End Date Maria Luisa Juarez FNP PCP - General NURSE PRACTITIONER 10/02/17 documented as of this encounter
--- OUTSIDE RECORDS SUMMARY | 2025-05-04 12:11 | XMS_ITS | Encounter Summary ---
Author Organization [facility] Address [address] Tavarezn: Epic Prelude ADT JESUS ALBERTO ORTIZ [address] Care Team Providers Care Woolen [place] Utility Worker Name Role Phone Maria Luisa Juarez Primary Care Provider [phone] Encounter Details Date Type Department Care Team (Late st Contact Info) Description 12/29/1996 [place] [address] [place] [address] Social History Tobacco Use Types Packs/Day Years Used Date Smoking Tobacco: Never Assessed Comments Unknown Sex and Gender Information Value Date Recorded Sex Assigned at Not on file Legal Sex Female 6:18 AM ANATOMIC PATHOLOGY ASSISTANT Gender Identity Not on file Sexual Orientation Not on file documented as of this encounter Plan of Treatment Not on file documented as of this encounter Visit Diagnoses Not on filedocumented in this encounter Care Teams Woolen Mill Utility Worker Relationship Specialty Start Date End Date Maria Luisa Juarez FNP PCP - General NURSE PRACTITIONER 10/02/17 documented as of this encounter
--- OUTSIDE RECORDS SUMMARY | 2025-05-04 12:11 | XMS_ITS | Encounter Summary ---
Author Organization [facility] Address [address] [place] [address] Care Team Providers Care Intranet Specialist Name Role Phone Maria Luisa Juarez Primary Care Provider [phone] Encounter Details Date Type Department Care Team (Latest Contact Info) Description 10/08/2004 Outpatient Historical [facility] [address] [facility] [address] [place] [address] Marilin Nascimento MD [address] [address] SPONDYLOLISTHESIS (Primary Dx) Social History Tobacco Use Types Packs/Day Years Used Date Smoking Tobacco: Never Assessed Comments Unknown Sex and Gender Information Value Date Recorded Sex Assigned at Not on file Legal Sex Female 6:18 AM OCCUPATIONAL THERAPIST REHAB MANAGER Gender Identity Not on file Sexual Orientation Not on file documented as of this encounter Plan of Treatment Not on file documented as of this encounter Visit Diagnoses Diagnosis Congenital spondylolisthesis- Primary documented in this encounter Care Teams Intranet Specialist Relationship Specialty Start Date End Date Maria Luisa Juarez FNP PCP - General NURSE PRACTITIONER 10/02/17 documented as of this encounter
--- OUTSIDE RECORDS SUMMARY | 2025-05-04 12:11 | XMS_ITS | Encounter Summary ---
Author Organization [facility] Address [address] Tavarezn: Epic Prelude ADT JESUS ALBERT[place]TI[place] [address] Care Team Providers Care Quantitative Analyst Name Role Phone Maria Luisa Juarez Primary Care Provider [phone] Encounter Details Date Type Department Care Team ([facility] Contact Info) Description 12/28/1996 Inpatient Historical Simon Bedoyachloe Huynh DO NO ADDRESS ON FILE Social History Tobacco Use Types Packs/Day Years Used Date Smoking Tobacco: Never Assessed Comments Unknown Sex and Gender Information Value Date Recorded Sex Assigned at Not on file Legal Sex Female 6:18 AM CORPORATION OFFICER Gender Identity Not on file Sexual Orientation Not on file documented as of this encounter Plan of Treatment Not on file documented as of this encounter Visit Diagnoses Not on filedocumented in this encounter Care Teams Quantitative Analyst Relationship Specialty Start Date End Date Maria Luisa Juarez FNP PCP - General NURSE PRACTITIONER 10/02/17 documented as of this encounter
--- OUTSIDE RECORDS SUMMARY | 2025-05-04 12:11 | XMS_ITS | Encounter Summary ---
Author Organization [facility] Address [address] [place] [address] Care Team Providers Care Lumber Stacker Operator Name Role Phone Maria Luisa Juarez Primary Care Provider [phone] Encounter Details Date Type Department Care Team (Late st Contact Info) Description 09/06/2007 Outpatient Historical [facility] [address] [place] [phone] Sp Franco MD [address] [facility] [address] [place] [address] Social History Tobacco Use Types Packs/Day Years Used Date Smoking Tobacco: Never Assessed Comments Unknown Sex and Gender Information Value Date Recorded Sex Assigned at Not on file Legal Sex Female 6:18 AM BELLING MACHINE OPERATOR Gender Identity Not on file Sexual Orientation Not on file documented as of this encounter Plan of Treatment Not on file documented as of this encounter Visit Diagnoses Not on filedocumented in this encounter Care Teams Lumber Stacker Operator Relationship Specialty Start Date End Date Maria Luisa Juarez FNP PCP - General NURSE PRACTITIONER 10/02/17 documented as of this encounter
--- OUTSIDE RECORDS SUMMARY | 2025-05-04 12:11 | XMS_ITS | Encounter Summary ---
Author Organization [facility] Address [address] [place] [address] Care Team Providers Care Client Service Consultant Name Role Phone Maria Luisa Juarez Primary Care Provider [phone] Encounter Details Date Type Department Care Team (Late st Contact Info) Description 06/27/1997 Emergency [facility] [address] [place] [phone] Jonas Medina MD NO ADDRESS ON FILE Social History Tobacco Use Types Packs/Day Years Used Date Smoking Tobacco: Never Assessed Comments Unknown Sex and Gender Information Value Date Recorded Sex Assigned at Not on file Legal Sex Female 6:18 AM MAINTENANCE MECHANIC HELPER Gender Identity Not on file Sexual Orientation Not on file documented as of this encounter Plan of Treatment Not on file documented as of this encounter Visit Diagnoses Not on filedocumented in this encounter Care Teams Client Service Consultant Relationship Specialty Start Date End Date Maria Luisa Juarez FNP PCP - General NURSE PRACTITIONER 10/02/17 documented as of this encounter
--- OUTSIDE RECORDS SUMMARY | 2025-05-04 12:11 | XMS_ITS | Encounter Summary ---
Author Organization [facility] Address [address] [place] [address] Care Team Providers Care School Fundraising Director Name Role Phone Maria Luisa Juarez Primary Care Provider [phone] Encounter Details Date Type Department Care Team (Latest Contact Info) Description 08/18/2005 Outpatient Historical [facility] [address] [place] [phone] Sp Franco MD [address] [facility] [address] [place] [address] LUMBOSACRAL NEURITIS NOS (Primary Dx) Social History Tobacco Use Types Packs/Day Years Used Date Smoking Tobacco: Never Assessed Comments Unknown Sex and Gender Information Value Date Recorded Sex Assigned at Not on file Legal Sex Female 6:18 AM INVOICE CHECKER Gender Identity Not on file Sexual Orientation Not on file documented as of this encounter Plan of Treatment Not on file documented as of this encounter Visit Diagnoses Diagnosis Thoracic or lumbosacral neuritis or radiculitis, unspecified- Primary documented in this encounter Care Teams School Fundraising Director Relationship Specialty Start Date End Date Maria Luisa Juarez FNP PCP - General NURSE PRACTITIONER 10/02/17 documented as of this encounter
--- OUTSIDE RECORDS SUMMARY | 2025-05-04 12:11 | XMS_ITS | Encounter Summary ---
Author Organization [facility] Address [address] [place] [address] Care Team Providers Care Tube Dispatcher Name Role Phone Maria Luisa Juarez [facility] Primary Care Provider [phone] Encounter Details Date Type Department Care Team (Late st Contact Info) Description 11/26/2004 Emergency [facility] [address] [place] [phone] Levy Goldberg MD NO ADDRESS ON FILE PAINFUL RESPIRATION (Primary Dx) Social History Tobacco Use Types Packs/Day Years Used Date Smoking Tobacco: Never Assessed Comments Unknown Sex and Gender Information Value Date Recorded Sex Assigned at Not on file Legal Sex Female 6:18 AM PACKAGING TECHNICIAN Gender Identity Not on file Sexual Orientation Not on file documented as of this encounter Plan of Treatment Not on file documented as of this encounter Procedures Procedure Name Priority Date/Time Associated Diagnosis Comments CBC WITH DIFFERENTIAL Routine 11/26/2004 11:00 PM PACKAGING TECHNICIAN D-DIMER Routine 11/26/2004 11:00 PM PACKAGING TECHNICIAN BASIC METABOLIC PANEL Routine 11/26/2004 11:00 PM PACKAGING TECHNICIAN documented in this encounter Results * D-DIMER (11/26/2004 11:00 PM PACKAGING TECHNICIAN) D-DIMER QUANT 0.3 0.0 - 0.5 mcg/mL INTERFACE SYSTEM 11/26/2004 11:0 0 PM PACKAGING TECHNICIAN Levy Goldberg MD HEMATOLOGY ORDERABLES [place] l Result Performing Organization Address [facility] Phone Number INTERFACE SYSTEM Refer to clinic/hospital department * BASIC METABOLIC PANEL (11/26/2004 11:00 PM PACKAGING TECHNICIAN) GLUCOSE 89 70 - 110 mg/dL INTERFACE SYSTEM BUN 12 7 - 17 mg/dL INTERFACE SYSTEM CREATININE 0.8 0.7 - 1.2 mg/dL (inactive) INTERFACE SYSTEM SODIUM 139 136 - 145 mEq/L INTERFACE SYSTEM POTASSIUM 4.4 3.5 - 5.0 mEq/L INTERFACE SYSTEM CHLORIDE 106 95 - 110 mEq/L INTERFACE SYSTEM CO2 26 22 - 32 mmol/l INTERFACE SYSTEM ANION GAP 11 9 - 20 mEq/L INTERFACE SYSTEM OSMOLALITY, CALCULATED 286 275 - 295 mOsm/Kg INTERFACE SYSTEM CALCIUM 8.8 8.4 - 10.5 mg/dL INTERFACE SYSTEM 11/26/2004 11:0 0 PM PACKAGING TECHNICIAN Levy Goldberg MD CHEMISTRY ORDERABLES Final Result Performing Organization Address [facility] Phone Number INTERFACE SYSTEM Refer to clinic/hospital department * (ABNORMAL) CBC WITH DIFFERENTIAL (11/26/2004 11:00 PM PACKAGING TECHNICIAN) WBC 9.9 4.5 - 11.0 K/ul INTERFACE SYSTEM RBC 4.79 4.20 - 5.40 Mil/ul INTERFACE SYSTEM HEMOGLOBIN 15.2 12.0 - 16.0 g/dL INTERFACE SYSTEM HEMATOCRIT 45.1 36.0 - 46.0 % INTERFACE SYSTEM MCV 94.2 84.0 - 103.0 Fl INTERFACE SYSTEM MCH 31.7 27.0 - 34.0 pg INTERFACE SYSTEM MCHC 33.7 30.0 - 35.0 g/dL INTERFACE SYSTEM RDW 12.4 11.0 - 14.5 percent(i nactive) INTERFACE SYSTEM PLATELETS 297 140 - 440 K/ul INTERFACE SYSTEM MPV 9.2 8.9 - 12.8 Fl INTERFACE SYSTEM NEUTROPHILS 49.0 42.2 - 75.2 percent(i nactive) INTERFACE SYSTEM LYMPHOCYTES 44.1(H) 24.0 - 44.0 percent(i nactive) INTERFACE SYSTEM MONOCYTES 5.0 2.0 - 10.0 percent(i nactive) INTERFACE SYSTEM EOSINOPHILS 1.6 0.0 - 7.0 % INTERFACE SYSTEM BASOPHILS 0.3 0.0 - 1.0 percent(i nactive) INTERFACE SYSTEM NEUTROPHIL ABSOLUTE 4.9 2.0 - 8.0 K/uL INTERFACE SYSTEM LYMPHOCYTE ABSOLUTE 4.4(H) 1.2 - 4.0 K/ul INTERFACE SYSTEM MONOCYTE ABSOLUTE 0.5 0.1 - 0.6 K/ul INTERFACE SYSTEM EOSINOPHIL ABSOLUTE 0.2 0.0 - 0.7 K/ul INTERFACE SYSTEM BASOPHILS ABSOLUTE 0.0 0.0 - 0.2 K/ul INTERFACE SYSTEM PERIPHERAL BLOOD SMEAR REVIEW Automated Diff INTERFACE SYSTEM 11/26/2004 11:0 0 PM PACKAGING TECHNICIAN us Levy Goldberg MD HEMATOLOGY ORDERABLES [place] juan Result INTERFACE SYSTEM Refer to clinic/hospital department documented in this encounter Visit Diagnoses Diagnosis Painful respiration- Primary documented in this encounter Care Teams Tube Dispatcher Relationship Specialty Start Date End Date Maria Luisa Juarez FNP PCP - General NURSE PRACTITIONER 10/02/17 documented as of this encounter
--- OUTSIDE RECORDS SUMMARY | 2025-05-04 12:11 | XMS_ITS | Encounter Summary ---
Author Organization [facility] Address [address] Tavarezn: Epic Prelude ADT JESUS ALBERTO ORTIZ [address] Care Team Providers Care Milk Drying Machine Operator Name Role Phone Maria Luisa Juarez Primary Care Provider [phone] Encounter Details Date Type Department Care Team (Late st Contact Info) Description 12/01/1996 [place] [address] [place] [phone] Social History Tobacco Use Types Packs/Day Years Used Date Smoking Tobacco: Never Assessed Comments Unknown Sex and Gender Information Value Date Recorded Sex Assigned at Not on file Legal Sex Female 6:18 AM COMMERCIAL LENDING RELATIONSHIP MANAGER Gender Identity Not on file Sexual Orientation Not on file documented as of this encounter Plan of Treatment Not on file documented as of this encounter Visit Diagnoses Not on filedocumented in this encounter Care Teams Milk Drying Machine Operator Relationship Specialty Start Date End Date Maria Luisa Juarez FNP PCP - General NURSE PRACTITIONER 10/02/17 documented as of this encounter
--- OUTSIDE RECORDS SUMMARY | 2025-05-04 12:11 | XMS_ITS | Encounter Summary ---
Author Organization [facility] Address [address] [place] [address] Care Team Providers Care Earth Sciences Professor Name Role Phone Maria Luisa Juarez Primary Care Provider [phone] Encounter Details Date Type Department Care Team (Latest Contact Info) Description 10/29/2005 Outpatient Historical [facility] [place] [address] [place] [phone] Sp Franco MD [address] [facility] [address] [place] [address] HYPERTENSION NOS (Primary Dx); FEMALE GENITAL SYMPTOMS NOS Social History Tobacco Use Types Packs/Day Years Used Date Smoking Tobacco: Never Assessed Comments Unknown Sex and Gender Information Value Date Recorded Sex Assigned at Not on file Legal Sex Female 6:18 AM SUPERVISOR LABORATORY Gender Identity Not on file Sexual Orientation Not on file documented as of this encounter Plan of Treatment Not on file documented as of this encounter Visit Diagnoses Diagnosis Unspecified essential hypertension- Primary Unspecified symptom associated with female genital organs documented in this encounter Care Teams Earth Sciences Professor Relationship Specialty Start Date End Date Maria Luisa Juarez FNP PCP - General NURSE PRACTITIONER 10/02/17 documented as of this encounter
--- OUTSIDE RECORDS SUMMARY | 2025-05-04 12:11 | XMS_ITS | Encounter Summary ---
Author Organization [facility] Address [address] [place] [address] Care Team Providers Care Track Repairer Helper Name Role Phone Maria Luisa Juarez Primary Care Provider [phone] Encounter Details Date Type Department Care Team (Latest Contact Info) Description 10/09/2005 Outpatient Historical [facility] [address] [place] [phone] Sp Franco MD [address] [place] [address] HYPERTENSION NOS (Primary Dx); LUMBAGO; NEURALGIA/NEURITIS NOS Social History Tobacco Use Types Packs/Day Years Used Date Smoking Tobacco: Never Assessed Comments Unknown Sex and Gender Information Value Date Recorded Sex Assigned at Not on file Legal Sex Female 6:18 AM ACCESS SERVICE REPRESENTATIVE Gender Identity Not on file Sexual Orientation Not on file documented as of this encounter Plan of Treatment Not on file documented as of this encounter Visit Diagnoses Diagnosis Unspecified essential hypertension- Primary Lumbago Neuralgia, neuritis, and radiculitis, unspecified documented in this encounter Care Teams Track Repairer Helper Relationship Specialty Start Date End Date Maria Luisa Juarez FNP PCP - General NURSE PRACTITIONER 10/02/17 documented as of this encounter
--- OUTSIDE RECORDS SUMMARY | 2025-05-04 12:11 | XMS_ITS | Encounter Summary ---
Author Organization [facility] Address [address] Tavarezn: Epic Prelude ADT JESUS ALBERTO ORTIZ [address] Care Team Providers Care Application Development Director Name Role Phone Maria Luisa Juarez Primary Care Provider [phone] Encounter Details Date Type Department Care Team (Latest Contact Info) Description 05/31/1997 Emergency Min García MD NO ADDRESS ON FILE Social History Tobacco Use Types Packs/Day Years Used Date Smoking Tobacco: Never Assessed Comments Unknown Sex and Gender Information Value Date Recorded Sex Assigned at Not on file Legal Sex Female 6:18 AM PUBLIC RELATIONS ACCOUNT EXECUTIVE Gender Identity Not on file Sexual Orientation Not on file documented as of this encounter Plan of Treatment Not on file documented as of this encounter Visit Diagnoses Not on filedocumented in this encounter Care Teams Application Development Director Relationship Specialty Start Date End Date Maria Luisa Juarez FNP PCP - General NURSE PRACTITIONER 10/02/17 documented as of this encounter
--- OUTSIDE RECORDS SUMMARY | 2025-05-04 12:11 | XMS_ITS | Encounter Summary ---
Author Organization [facility] Address [address] [place] [address] Care Team Providers Care Feed Research Technician Name Role Phone Maria Luisa Juarez Primary Care Provider [phone] Encounter Details Date Type Department Care Team (Late st Contact Info) Description 10/29/2004 Outpatient Historical [facility] [address] [place] [phone] Renaldo Wyman MD NO ADDRESS ON FILE Social History Tobacco Use Types Packs/Day Years Used Date Smoking Tobacco: Never Assessed Comments Unknown Sex and Gender Information Value Date Recorded Sex Assigned at Not on file Legal Sex Female 6:18 AM GRAPHIC SPECIALIST Gender Identity Not on file Sexual Orientation Not on file documented as of this encounter Plan of Treatment Not on file documented as of this encounter Visit Diagnoses Not on filedocumented in this encounter Care Teams Feed Research Technician Relationship Specialty Start Date End Date Maria Luisa Juarez FNP PCP - General NURSE PRACTITIONER 10/02/17 documented as of this encounter
--- OUTSIDE RECORDS SUMMARY | 2025-05-04 12:11 | XMS_ITS | Encounter Summary ---
Author Organization [facility] Address [address] [place] [address] Care Team Providers Care Doll Wig Hackler Name Role Phone Maria Luisa Juarez Primary Care Provider [phone] Encounter Details Date Type Department Care Team (Late st Contact Info) Description 05/02/2004 Emergency [facility] Emergency Department [address] [place] [phone] Floyd Beatty DO NO ADDRESS ON FILE LUMBAGO (Primary Dx) Social History Tobacco Use Types Packs/Day Years Used Date Smoking Tobacco: Never Assessed Comments Unknown Sex and Gender Information Value Date Recorded Sex Assigned at Not on file Legal Sex Female 6:18 AM AREA OPERATIONS DIRECTOR Gender Identity Not on file Sexual Orientation Not on file documented as of this encounter Plan of Treatment Not on file documented as of this encounter Visit Diagnoses Diagnosis Lumbago- Primary documented in this encounter Care Teams Doll Wig Hackler Relationship Specialty Start Date End Date Maria Luisa Juarez FNP PCP - General NURSE PRACTITIONER 10/02/17 documented as of this encounter
--- OUTSIDE RECORDS SUMMARY | 2025-05-04 12:11 | XMS_ITS | Encounter Summary ---
Author Organization [facility] Address [address] [place] [address] Care Team Providers Care Conveyor Belt Repairer Name Role Phone Maria Luisa Juarez SUPERVISOR ALUM PLANT Primary Care Provider [phone] Encounter Details Date Type Department Care Team (Late st Contact Info) Description 04/12/2008 Emergency [facility] Emergency Department [address] [place] [phone] Ed, Physician NO ADDRESS ON FILE Jayce Vega DO NO ADDRESS ON FILE Social History Tobacco Use Types Packs/Day Years Used Date Smoking Tobacco: Never Assessed Comments Unknown Sex and Gender Information Value Date Recorded Sex Assigned at Not on file Legal Sex Female 6:18 AM ACADEMIC SUCCESS COORDINATOR Gender Identity Not on file Sexual Orientation Not on file documented as of this encounter Plan of Treatment Not on file documented as of this encounter Procedures Procedure Name Priority Date/Time Associated Diagnosis Comments XR CHEST PA AND LATERAL 2 VW Routine 04/12/2008 8:14 PM CDT URINALYSIS MICROSCOPY ONLY Stat 04/12/2008 7:54 PM CDT RICKETTSIA RICKETTSII IGG/IGM ABS Stat 04/12/2008 7:54 PM CDT EHRLICHIA BY PCR Stat 04/12/2008 7:54 PM CDT LYME AB IGG/IGM Stat 04/12/2008 7:54 PM CDT CBC WITH DIFFERENTIAL Stat 04/12/2008 7:54 PM CDT URINALYSIS W/REFLEX MICROSCOPIC Stat 04/12/2008 7:54 PM CDT TSH Stat 04/12/2008 7:54 PM CDT T4 FREE Stat 04/12/2008 7:54 PM CDT COMPREHENSIVE METABOLIC PANEL Stat 04/12/2008 7:54 PM CDT documented in this encounter Results * XR CHEST PA AND LATERAL (04/12/2008 8:14 PM CDT) Anatomical Region Laterality Modality Chest Other 04/12/2008 8:14 PM CDT Narrative 04/12/2008 9:20 PM CDT PA and lateral chest 04/12/2008. History: Difficulty breathing. The heart is normal in size and configuration. There are calcifications in the chest consistent with old granulomatous disease. The mediastinum is not widened. There is no pneumothorax, pleural fluid, soft tissue pulmonary nodule, or infiltrate. Bones appear intact. Impression: Mild old granulomatous disease, also present on 02/04/2006. - Dictated By: Angela Mathews M.D. Electronically Signed By: Angela Mathews M.D. Date Signed: 04/12/08 Procedure Note Angela Mathews R - 04/12/2008 PA and lateral chest 04/12/2008. History: Difficulty breathing. The heart is normal in size and configuration. There are calcifications inthe chest consistent with old granulomatous disease. The mediastinum is not widened. There is nopneumothorax, pleural fluid, soft tissue pulmonary nodule, or infiltrate. Bones appear intact. Impression: Mild old granulomatous disease, also present on 02/04/2006. - Dictated By: Angela Mathews M.D. Electronically Signed By: Angela Mathews M.D. Date Signed: 04/12/08 us Surinder Vasques MD DIAGNOSTIC IMAGING ORDERA BLES Final Result * (ABNORMAL) URINALYSIS MICROSCOPY ONLY (04/12/2008 7:54 PM CDT) BACTERIA UA Few(A) None Seen [facility] RBC UA 0-2 0 - 2 [facility] HYALINE CAST None Seen 0 - 2 [facility] WBC URINE 0-2 0 - 2 [facility] Urine specimen (specimen) 04/12/2008 7:54 PM CDT 04/12/2008 8:03 PM CDT Narrative [facility] - 04/12/2008 8:26 PM CDT Microscopic ordered by policy us Surinder Vasques MD URINE ORDERABLES Final Re sult Performing Organization Address [facility] de Phone Number [facility] CLIA# [id number] [address] [place] [address] * EHRLICHIA BY PCR (04/12/2008 7:54 PM CDT) [facility] EHRLICHIA BY PCR See Sep Report [facility] Specimen of unknown material (specimen) BLOOD SPECIMEN / Unknown 04/12/2008 7:54 PM CDT 04/13/2008 8:50 AM CDT Surinder Vasques MD CHEMISTRY ORDERABLES [place] l Result Performing Organization Address [facility] Co de Phone Number [facility] CLIA# [id number] [address] [place] [address] * RICKETTSIA RICKETTSII IGG/IGM ABS (04/12/2008 7:54 PM CDT) Pathologist [facility] RMSF AB See Sep Report [facility] Blood specimen (specimen) 04/12/2008 7:54 PM CDT 04/13/2008 8:50 AM CDT us Surinder Vasques MD CHEMISTRY ORDERABLES [place] l Result Performing Organization Address [facility] de Phone Number [facility] CLIA# [id number] [address] [place] [address] * LYME AB IGG/IGM (04/12/2008 7:54 PM CDT) [facility] LYME ANTIBODY (EIA) See Sep Report [facility] Blood specimen (specimen) 04/12/2008 7:54 PM CDT 04/13/2008 8:50 AM CDT Surinder Vasques MD CHEMISTRY ORDERABLES COM Final Result Performing Organization Address [facility] de Phone Number [facility] CLIA# [id number] [address] [place] [address] * TSH (04/12/2008 7:54 PM CDT) [facility] TSH 1.057 0.350 - 5.500 uIU/ml [facility] Blood specimen (specimen) 04/12/2008 7:54 PM CDT 04/12/2008 8:03 PM CDT Surinder Vasques MD CHEMISTRY ORDERABLES [place] l Result Performing Organization Address [facility] de Phone Number [facility] CLIA# [id number] [address] [place] [address] * (ABNORMAL) COMPREHENSIVE METABOLIC PANEL (04/12/2008 7:54 PM CDT) [facility] TOTAL PROTEIN 7.3 6.3 - 8.2 g/dL [facility] SODIUM 142 136 - 145 mEq/L [facility] BILIRUBIN TOTAL 0.2(L) 0.3 - 1.2 mg/dL [facility] BUN 13 7 - 17 mg/dL [facility] CO2 28 22 - 32 mmol/l [facility] ANION GAP 9 9 - 20 mEq/L [facility] AST 19 8 - 33 U/L [facility] POTASSIUM 3.9 3.5 - 5.0 mEq/L [facility] GLOBULIN (CALC) 3.1 2.4 - 3.9 g/dL [facility] ALBUMIN 4.2 3.5 - 5.0 g/dL [facility] CREATININE 0.9 0.7 - 1.2 mg/dL [facility] ALT 20 4 - 36 IU/L [facility] CALCIUM 9.5 8.4 - 10.5 mg/dL [facility] OSMOLALITY, CALCULATED 290 275 - 295 mOsm/Kg [facility] GLUCOSE 75 70 - 110 mg/dL [facility] ALKALINE PHOSPHATASE 79 25 - 100 U/L [facility] CHLORIDE 109 95 - 110 mEq/L [facility] ALBUMIN/GLOBULIN RATIO 1.4 1.0 - 2.3 [facility] Blood specimen (specimen) 04/12/2008 7:54 PM CDT 04/12/2008 8:03 PM CDT Surinder Vasques MD CHEMISTRY ORDERABLES Elmira martinez Result Performing Organization Address City/State/[facility] Co de Phone Number [facility] CLIA# [id number] [address] [place] [address] * (ABNORMAL) CBC WITH DIFFERENTIAL (04/12/2008 7:54 PM CDT) BASOPHILS ABSOLUTE 0.0 0.0 - 0.2 K/ul [facility] BASOPHILS 0.5 0.0 - 1.0 % [facility] HEMOGLOBIN 14.5 12.0 - 16.0 g/dL [facility] RDW 13.3 11.0 - 14.5 % [facility] MONOCYTE ABSOLUTE 0.7(H) 0.1 - 0.6 K/ul [facility] MONOCYTES 8.4 2.0 - 10.0 % [facility] WBC 8.5 4.5 - 11.0 K/ul [facility] MCH 30.5 27.0 - 34.0 pg [facility] NEUTROPHIL ABSOLUTE 4.1 2.0 - 8.0 K/ul [facility] NEUTROPHILS 48.1 42.2 - 75.2 % [facility] HEMATOCRIT 43.6 36.0 - 46.0 % [facility] EOSINOPHILS 1.1 0.0 - 7.0 % [facility] PLATELETS 299 140 - 440 K/ul [facility] EOSINOPHIL ABSOLUTE 0.1 0.0 - 0.7 K/ul [facility] RBC 4.76 4.20 - 5.40 Mil/ul [facility] LYMPHOCYTES 41.9 24.0 - 44.0 % [facility] MCHC 33.3 30.0 - 35.0 g/dL [facility] LYMPHOCYTE ABSOLUTE 3.6 1.2 - 4.0 K/ul [facility] MCV 91.6 84.0 - 103.0 Fl [facility] MPV 9.6 8.9 - 12.8 Fl [facility] Blood specimen (specimen) 04/12/2008 7:54 PM CDT 04/12/2008 8:03 PM CDT us Surinder Vasques MD HEMATOLOGY ORDERABLES Fin al Result Performing Organization Address City/State/[facility] Co de Phone Number [facility] IA# [id number] [address] [place] [address] * (ABNORMAL) URINALYSIS (04/12/2008 7:54 PM CDT) LEUKOCYTE ESTERASE UA NEGATIVE NEGATIVE [facility] KETONES UA NEGATIVE NEGATIVE [facility] MICRO EXAM Yes(A) No [facility] COLOR UA Yellow Straw [facility] PROTEIN UA NEGATIVE NEGATIVE [facility] BLOOD UA Trace(A) NEGATIVE [facility] NITRITE UA NEGATIVE NEGATIVE [facility] UROBILINOGEN UA 0.2 0.2 [facility] CLARITY UA Clear Clear [facility] SPECIFIC GRAVITY UA 1.015 <=1.005 [facility] GLUCOSE UA NEGATIVE NEGATIVE [facility] PH UA 7.0 5.0 - 9.0 [facility] BILIRUBIN UA NEGATIVE NEGATIVE [facility] Urine specimen (specimen) 04/12/2008 7:54 PM CDT 04/12/2008 8:03 PM CDT Surinder Vasques MD URINE ORDERABLES Final Re sult Performing Organization Address [facility] Co de Phone Number [facility] CLIA# [id number] [facility] [place] [address] * T4 FREE (04/12/2008 7:54 PM CDT) T4 FREE 1.21 0.89 - 1.76 ng/dL [facility] Blood specimen (specimen) 04/12/2008 7:54 PM CDT 04/12/2008 8:03 PM CDT Surinder Vasques MD CHEMISTRY ORDERABLES [place] l Result Performing Organization Address [facility] Co de Phone Number [facility] CLIA# [id number] [address] [place] [address] documented in this encounter Visit Diagnoses Not on filedocumented in this encounter Care Teams Conveyor Belt Repairer Relationship Specialty Start Date End Date Maria Luisa Juarez FNP PCP - General NURSE PRACTITIONER 10/02/17 documented as of this encounter
--- OUTSIDE RECORDS SUMMARY | 2025-05-04 12:11 | XMS_ITS | Encounter Summary ---
Author Organization [facility] Address [address] [place] [address] Care Team Providers Care Miller Apprentice Name Role Phone Maria Luisa Juarez Primary Care Provider [phone] Encounter Details Date Type Department Care Team (Late st Contact Info) Description 05/02/2004 Outpatient Historical [facility] [address] [place] [address] AMBULANCE, [facility] PAIN IN LIMB (Primary Dx) Social History Tobacco Use Types Packs/Day Years Used Date Smoking Tobacco: Never Assessed Comments Unknown Sex and Gender Information Value Date Recorded Sex Assigned at Not on file Legal Sex Female 6:18 AM PSYCH SPECIALIST Gender Identity Not on file Sexual Orientation Not on file documented as of this encounter Plan of Treatment Not on file documented as of this encounter Visit Diagnoses Diagnosis Pain in limb- Primary documented in this encounter Care Teams Miller Apprentice Relationship Specialty Start Date End Date Maria Luisa Juarez FNP PCP - General NURSE PRACTITIONER 10/02/17 documented as of this encounter
--- OUTSIDE RECORDS SUMMARY | 2025-05-04 12:11 | XMS_ITS | Encounter Summary ---
Author Organization [facility] Address [address] [place] [address] Care Team Providers Care Talent Partner Name Role Phone Maria Luisa Juarez Primary Care Provider [phone] Encounter Details Date Type Department Care Team (Latest Contact Info) Description 09/04/2005 Outpatient Historical [facility] [address] [place] [phone] Marilin Nascimento MD [address] [address] LUMB/LUMBOSAC DISC DEGEN (Primary Dx) Social History Tobacco Use Types Packs/Day Years Used Date Smoking Tobacco: Never Assessed Comments Unknown Sex and Gender Information Value Date Recorded Sex Assigned at Not on file Legal Sex Female 6:18 AM ENTRANCE GUARD Gender Identity Not on file Sexual Orientation Not on file documented as of this encounter Plan of Treatment Not on file documented as of this encounter Visit Diagnoses Diagnosis Degeneration of lumbar or lumbosacral intervertebral disc- Primary documented in this encounter Care Teams Talent Partner Relationship Specialty Start Date End Date Maria Luisa Juarez FNP PCP - General NURSE PRACTITIONER 10/02/17 documented as of this encounter
--- OUTSIDE RECORDS SUMMARY | 2025-05-04 12:11 | XMS_ITS | Encounter Summary ---
Author Organization [facility] Address [address] [place] [address] Care Team Providers Care Burlap Roll Coverer Name Role Phone Maria Luisa Juarez Primary Care Provider [phone] Encounter Details Date Type Department Care Team (Latest Contact Info) Description 06/27/2008 Outpatient Historical [facility] Chronic Pain [address] [place] [phone] Renaldo Wyman MD NO ADDRESS ON FILE Other Pain Disorders Related to Psychological Factors; Thoracic or Lumbosacral Neuritis or Radiculitis, Unspecified Social History Tobacco Use Types Packs/Day Years Used Date Smoking Tobacco: Every Day Cigarettes 2 27 Alcohol Use Standard Drinks/Week Comments No 0 (1 standard drink = 0.6 oz pur e alcohol) Comments No Sex and Gender Information Value Date Recorded Sex Assigned at Not on file Legal Sex Female 6:18 AM PHOTOENGRAVING SKETCH MAKER Gender Identity Not on file Sexual Orientation Not on file documented as of this encounter Plan of Treatment Not on file documented as of this encounter Visit Diagnoses Diagnosis Other pain disorders related to psychological factors Thoracic or lumbosacral neuritis or radiculitis, unspecified documented in this encounter Care Teams Burlap Roll Coverer Relationship Specialty Start Date End Date Maria Luisa Juarez FNP PCP - General NURSE PRACTITIONER 10/02/17 documented as of this encounter
--- OUTSIDE RECORDS SUMMARY | 2025-05-04 12:11 | XMS_ITS | Encounter Summary ---
Author Organization [facility] Address [address] [place] [address] Care Team Providers Care Marine Insurance Claim Examiner Name Role Phone Maria Luisa Juarez Primary Care Provider [phone] Encounter Details Date Type Department Care Team (Late st Contact Info) Description 03/08/2008 Outpatient [facility] [address] [address] Renaldo Wyman MD NO ADDRESS ON FILE Pain in Soft Tissues of Limb; Congenital Spondylolisthesis; Anxiety State, Unspecified Social History Tobacco Use Types Packs/Day Years Used Date Smoking Tobacco: Never Assessed Comments Unknown Sex and Gender Information Value Date Recorded Sex Assigned at Not on file Legal Sex Female 6:18 AM FUNDRAISER Gender Identity Not on file Sexual Orientation Not on file documented as of this encounter Plan of Treatment Not on file documented as of this encounter Visit Diagnoses Diagnosis Pain in limb Congenital spondylolisthesis Anxiety state, unspecified documented in this encounter Care Teams Marine Insurance Claim Examiner Relationship Specialty Start Date End Date Maria Luisa Juarez FNP PCP - General NURSE PRACTITIONER 10/02/17 documented as of this encounter
--- OUTSIDE RECORDS SUMMARY | 2025-05-04 12:11 | XMS_ITS | Encounter Summary ---
Author Organization [facility] Address [address] [place] [address] Care Team Providers Care Shaker Washer Name Role Phone Maria Luisa Juarez Primary Care Provider [phone] Encounter Details Date Type Department Care Team (Late st Contact Info) Description 07/27/[address] [facility] [address] [place] [phone] Mata Connors MD NO ADDRESS ON FILE Social History Tobacco Use Types Packs/Day Years Used Date Smoking Tobacco: Never Assessed Comments Unknown Sex and Gender Information Value Date Recorded Sex Assigned at Not on file Legal Sex Female 6:18 AM CORPORATE TRAVEL COUNSELOR Gender Identity Not on file Sexual Orientation Not on file documented as of this encounter Plan of Treatment Not on file documented as of this encounter Visit Diagnoses Not on filedocumented in this encounter Care Teams Shaker Washer Relationship Specialty Start Date End Date Maria Luisa Juarez FNP PCP - General NURSE PRACTITIONER 10/02/17 documented as of this encounter
--- OUTSIDE RECORDS SUMMARY | 2025-05-04 12:11 | XMS_ITS | Encounter Summary ---
Author Organization [facility] Address [address] Tavarezn: Epic Prelude ADT JESUS ALBERTO ORTIZ [address] Care Team Providers Care Manager Photo Name Role Phone Maria Luisa Juarez Primary Care Provider [phone] Encounter Details Date Type Department Care Team (Late st Contact Info) Description 03/22/1997 [place] [address] [place] [address] Social History Tobacco Use Types Packs/Day Years Used Date Smoking Tobacco: Never Assessed Comments Unknown Sex and Gender Information Value Date Recorded Sex Assigned at Not on file Legal Sex Female 6:18 AM TOBACCO EDUCATOR Gender Identity Not on file Sexual Orientation Not on file documented as of this encounter Plan of Treatment Not on file documented as of this encounter Visit Diagnoses Not on filedocumented in this encounter Care Teams Manager Photo Relationship Specialty Start Date End Date Maria Luisa Juarez FNP PCP - General NURSE PRACTITIONER 10/02/17 documented as of this encounter
--- OUTSIDE RECORDS SUMMARY | 2025-05-04 12:11 | XMS_ITS | Encounter Summary ---
Author Organization [facility] Address [address] [place] [address] Care Team Providers Care Food Services Coordinator Name Role Phone Maria Luisa Juarez Primary Care Provider [phone] Encounter Details Date Type Department Care Team (Latest Contact Info) Description 09/04/2005 Outpatient [facility] [address] [facility] [address] [place] [address] Marilin Nascimento MD [address] [address] ACQ SPONDYLOLISTHESIS (Primary Dx) Social History Tobacco Use Types Packs/Day Years Used Date Smoking Tobacco: Never Assessed Comments Unknown Sex and Gender Information Value Date Recorded Sex Assigned at Not on file Legal Sex Female 6:18 AM SHIPYARD SUPERVISOR Gender Identity Not on file Sexual Orientation Not on file documented as of this encounter Plan of Treatment Not on file documented as of this encounter Visit Diagnoses Diagnosis Acquired spondylolisthesis- Primary documented in this encounter Care Teams Food Services Coordinator Relationship Specialty Start Date End Date Maria Luisa Juarez FNP PCP - General NURSE PRACTITIONER 10/02/17 documented as of this encounter
--- OUTSIDE RECORDS SUMMARY | 2025-05-04 12:11 | XMS_ITS | Encounter Summary ---
Author Organization [facility] Address [address] [place] [address] Care Team Providers Care Ecommerce Manager Name Role Phone Maria Luisa Juarez Primary Care Provider [phone] Encounter Details Date Type Department Care Team (Late st Contact Info) Description 06/25/2005 Emergency [facility] Emergency Department [address] [place] [phone] Adriana Mc MD [address] [place] [address] LUMBAGO (Primary Dx) Social History Tobacco Use Types Packs/Day Years Used Date Smoking Tobacco: Never Assessed Comments Unknown Sex and Gender Information Value Date Recorded Sex Assigned at Not on file Legal Sex Female 6:18 AM SHIP LOADER Gender Identity Not on file Sexual Orientation Not on file documented as of this encounter Plan of Treatment Not on file documented as of this encounter Visit Diagnoses Diagnosis Lumbago- Primary documented in this encounter Care Teams Ecommerce Manager Relationship Specialty Start Date End Date Maria Luisa Juarez FNP PCP - General NURSE PRACTITIONER 10/02/17 documented as of this encounter
--- OUTSIDE RECORDS SUMMARY | 2025-05-04 12:11 | XMS_ITS | Encounter Summary ---
Author Organization [facility] Address [address] [place] [address] Care Team Providers Care Shopper'S Aide Name Role Phone Maria Luisa Juarez Primary Care Provider [phone] Encounter Details Date Type Department Care Team (Late st Contact Info) Description 04/20/2008 Outpatient Historical [facility] [address] [place] [phone] Renaldo Wyman MD NO ADDRESS ON FILE Social History Tobacco Use Types Packs/Day Years Used Date Smoking Tobacco: Never Assessed Comments Unknown Sex and Gender Information Value Date Recorded Sex Assigned at Not on file Legal Sex Female 6:18 AM 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
--- OUTSIDE RECORDS SUMMARY | 2025-05-04 12:11 | XMS_ITS | Encounter Summary ---
Author Organization [facility] Address [address] [place] [address] Care Team Providers Care Piece Presser Name Role Phone Maria Luisa Juarez Primary Care Provider [phone] Encounter Details Date Type Department Care Team (Late st Contact Info) Description 09/04/2008 Outpatient [facility] [address] [place] [address] AMBULANCE, [facility] Social History Tobacco Use Types Packs/Day Years Used Date Smoking Tobacco: Every Day Cigarettes 2 27 Alcohol Use Standard Drinks/Week Comments No 0 (1 standard drink = 0.6 oz pur e alcohol) Comments No Sex and Gender Information Value Date Recorded Sex Assigned at Not on file Legal Sex Female 6:18 AM IN CLASSROOM TUTOR Gender Identity Not on file Sexual Orientation Not on file documented as of this encounter Plan of Treatment Not on file documented as of this encounter Visit Diagnoses Not on filedocumented in this encounter Care Teams Piece Presser Relationship Specialty Start Date End Date Maria Luisa Juarez FNP PCP - General NURSE PRACTITIONER 10/02/17 documented as of this encounter
--- OUTSIDE RECORDS SUMMARY | 2025-05-04 12:11 | XMS_ITS | Encounter Summary ---
Author Organization [facility] Address [address] [place] [address] Care Team Providers Care Crib Tender Name Role Phone Maria Luisa Juarez Primary Care Provider [phone] Encounter Details Date Type Department Care Team (Latest Contact Info) Description 09/11/2005 Outpatient Historical [facility]- [place] [address] [place] [phone] Sp Franco MD [address] [facility] [address] [place] [address] HYPERTENSION NOS (Primary Dx); LUMBAGO; Vaccine for influenza Social History Tobacco Use Types Packs/Day Years Used Date Smoking Tobacco: Never Assessed Comments Unknown Sex and Gender Information Value Date Recorded Sex Assigned at Not on file 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
--- OUTSIDE RECORDS SUMMARY | 2025-05-04 12:11 | XMS_ITS | Encounter Summary ---
Author Organization [facility] Address [address] [place] [address] Care Team Providers Care Chocolate Packer Name Role Phone Maria Luisa Juarez Primary Care Provider Encounter Details Date Type Department Care Team (Latest Contact Info) Description 10/08/2004 Outpatient Historical [facility] [address] 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
--- OUTSIDE RECORDS SUMMARY | 2025-05-04 12:11 | XMS_ITS | Encounter Summary ---
Author Organization [facility] Address [address] 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
--- OUTSIDE RECORDS SUMMARY | 2025-05-04 12:11 | XMS_ITS | Encounter Summary ---
Author Organization [facility] Address [address] [place] [address] Care Team Providers Care Generator Man Name Role Phone Maria Luisa Juarez DEMURRAGE WORKER Primary Care Provider [phone] Encounter Details Date Type Department Care Team (Late st Contact Info) Description 10/01/2007 Outpatient [facility] [place] [address] [facility] [address] [place] [address] Renaldo Wyman MD NO ADDRESS ON FILE Congenital Spondylolisthesis; Thoracic or Lumbosacral Neuritis or Radiculitis, Unspecified; Morbid Obesity (CMS/HCC); Bipolar Disorder, Unspecified (CMS/HCC); Unspecified Essential Hypertension; Unspecified Asthma; Diaphragmatic Hernia without Mention of Obstruction or Gangrene; Unspecified Constipation; Hx TIA/Stroke w/o Resid; Personal History of Allergy to Analgesic Agent Social History Tobacco Use Types Packs/Day Years Used Date Smoking Tobacco: Never Assessed Comments Unknown Sex and Gender Information Value Date Recorded Sex Assigned at Not on file 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 Gender Identity Not on file Sexual Orientation Not on file documented as of this encounter Plan of Treatment Not on file documented as of this encounter Procedures Procedure Name Priority Date/Time Associated Diagnosis Comments XR LUMBAR SPINE 4+ VW Routine 10/06/2007 11:25 AM HOUSE VISITOR documented in this encounter Results * XR LUMBAR SPINE 4+ VW (10/06/2007 11:25 AM HOUSE VISITOR) Anatomical Region Laterality Modality Spine Other 10/06/2007 11:2 5 AM HOUSE VISITOR Narrative 10/06/2007 11:25 AM HOUSE VISITOR Exam: Spine - Lumbar With Flexion and Extension Date/Time of Exam: Oct 06, 2007 11:25:09 AM History: Low back pain. Findings: On the AP projection a solitary screw is superimposed upon the right acetabulum. On the lateral projection the neutral lateral view demonstrates grade II/III anterolisthesis of L5 upon S1 with bilateral spondylolysis. There is near obliteration of the L5-S1 interspace. The remaining vertebral body heights and interspace heights are normal. The lateral flexion and extension views demonstrate no substantial change in alignment or subluxation at L5-S1. The remainder of the vertebral column is stable during the maneuver. Impression: Spondylolysis with grade II/III spondylolisthesis of L5 upon S1. - Procedure Note Sena Escalera - 10/08/2007 Exam: Spine - Lumbar With Flexion and Extension Date/Time of Exam: Oct 06, 2007 11:25:09 AM History: Low back pain. Findings: On the AP projection a solitary screw is superimposed upon theright acetabulum. On the lateral projection the neutral lateral view demonstrates grade II/IIIanterolisthesis of L5 upon S1 with bilateral spondylolysis. There is near obliteration of the L5-K0chdoskhfae. The remaining vertebral body heights and interspace heights are normal. The lateralflexion and extension views demonstrate no substantial change in alignment or subluxation at L5-S1.The remainder of the vertebral column is stable during the maneuver. Impression: Spondylolysis with grade II/III spondylolisthesis of L5 uponS1. - us Renaldo Wyman MD DIAGNOSTIC IMAGING ORDERAB LES Final Result documented in this encounter Visit Diagnoses Diagnosis Congenital spondylolisthesis Thoracic or lumbosacral neuritis or radiculitis, unspecified Morbid obesity (CMS/HCC) Morbid obesity Bipolar disorder, unspecified (CMS/HCC) Bipolar disorder, unspecified Unspecified essential hypertension Unspecified asthma(493.90) Unspecified asthma Diaphragmatic hernia without mention of obstruction or gangrene Unspecified constipation Transient ischemic attack (TIA), and cerebral infarction without residual deficits(V12.54) Transient ischemic attack (TIA), and cerebral infarction without residual deficits Personal history of allergy to analgesic agent documented in this encounter Care Teams Generator Man Relationship Specialty Start Date End Date Maria Luisa Juarez FNP PCP - General NURSE PRACTITIONER 10/02/17 documented as of this encounter
--- OUTSIDE RECORDS SUMMARY | 2025-05-04 12:11 | XMS_ITS | Encounter Summary ---
Author Organization [facility] Address [address] [place] [address] Care Team Providers Care Pile Driving Superintendent Name Role Phone Maria Luisa Juarez Primary Care Provider [phone] Encounter Details Date Type Department Care Team (Latest Contact Info) Description 02/18/2006 Outpatient Historical [facility] [place] [address] [place] [phone] Sp Franco MD [address] [facility] [address] [place] [address] Lumbago (Primary Dx); Anxiety State, Unspecified Social History Tobacco Use Types Packs/Day Years Used Date Smoking Tobacco: Never Assessed Comments Unknown Sex and Gender Information Value Date Recorded Sex Assigned at Not on file 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
--- OUTSIDE RECORDS SUMMARY | 2025-05-04 12:11 | XMS_ITS | Encounter Summary ---
Author Organization [facility] Address [address] 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
--- OUTSIDE RECORDS SUMMARY | 2025-05-04 12:11 | XMS_ITS | Encounter Summary ---
Author Organization [facility] Address [address] [place] [address] Care Team Providers Care Sterile Processing Tech Name Role Phone Maria Luisa Juarez Primary Care Provider [phone] Encounter Details Date Type Department Care Team (Latest Contact Info) Description 12/22/2005 Outpatient Historical [facility] Medicine- [place] [address] [place] [address] Sp Franco MD [address] [facility] [address] [place] [address] Trichomonal Vaginitis (Primary Dx) Social History Tobacco Use Types Packs/Day Years Used Date Smoking Tobacco: Never Assessed Comments Unknown Sex and Gender Information Value Date Recorded Sex Assigned at Not on file 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
--- OUTSIDE RECORDS SUMMARY | 2025-05-04 12:11 | XMS_ITS | Encounter Summary ---
Author Organization [facility] Address [address] [place] [address] Care Team Providers Care Tablet Repair Name Role Phone Maria Luisa Juarez Primary Care Provider [phone] Encounter Details Date Type Department Care Team (Latest Contact Info) Description 10/06/2005 Outpatient Historical [facility] [address] [place] [address] Ray Aguilera MD [address] [phone] Spondylolisthesis (Primary Dx) Social History Tobacco Use Types Packs/Day Years Used Date Smoking Tobacco: Never Assessed Comments Unknown Sex and Gender Information Value Date Recorded Sex Assigned at Not on file 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
--- OUTSIDE RECORDS SUMMARY | 2025-05-04 12:11 | XMS_ITS | Encounter Summary ---
Author Organization [facility] Address [address] 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
--- OUTSIDE RECORDS SUMMARY | 2025-05-04 12:11 | XMS_ITS | Encounter Summary ---
Author Organization [facility] Address [address] [place] [address] Care Team Providers Care Absorption Operator Name Role Phone Maria Luisa Juarez RN [employer]UM Primary Care Provider [phone] Encounter Details Date Type Department Care Team (Late st Contact Info) Description 10/07/2007 Outpatient Historical [facility] [address] [place] [address] Renaldo Wyman MD NO ADDRESS ON FILE Social History Tobacco Use Types Packs/Day Years Used Date Smoking Tobacco: Never Assessed Comments Unknown Sex and Gender Information Value Date Recorded Sex Assigned at Not on file 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 Sex Female 6:18 AM 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 CARPENTER Gender Identity Not on file Sexual Orientation Not on file documented as of this encounter Plan of Treatment Not on file documented as of this encounter Procedures Procedure Name Priority Date/Time Associated Diagnosis Comments HIV DETECTION W/REFLX CONFIRMATION Routine 10/27/2007 5:14 PM CONCRETE CARPENTER GENERAL HEALTH PANEL Routine 10/27/2007 5:14 PM CONCRETE CARPENTER CALCITRIOL Routine 10/27/2007 5:14 PM CONCRETE CARPENTER documented in this encounter Results * VITAMIN D 1,25 DIHYDROXY (10/27/2007 5:14 PM CONCRETE CARPENTER) VITAMIN D 1,25 DIHYDROXY 31.8 25.1 - 66.1 pg/mL SPECIALTY [facility] 10/27/2007 5:14 PM CONCRETE CARPENTER 10/27/2007 5:15 PM CONCRETE CARPENTER Sp Franco MD CHEMISTRY ORDERABLES Final R esult SPECIALTY [facility] * HIV ANTIBODY W/REFLX CONFIRMATION (10/27/2007 5:14 PM CONCRETE CARPENTER) HIV-1 AND 2 ABS NEGATIVE NEG [facility] HIV-1 AND 2 ABS NEGATIVE FOR ANTIBODIES TO HIV-1 AND HIV-2 BY EIA [facility] 10/27/2007 5:14 PM CONCRETE CARPENTER 10/27/2007 5:15 PM CONCRETE CARPENTER Sp Franco MD CHEMISTRY ORDERABLES Final R esult [facility] CLIA# [id number] [address] [place] [address] * (ABNORMAL) GENERAL HEALTH PANEL (10/27/2007 5:14 PM CONCRETE CARPENTER) GLUCOSE 58(L) 70 - 100 MG/DL [facility] GLUCOSE Reference interval only valid for fasting specimens [facility] BUN 12 6 - 20 MG/DL [facility] CREATININE 0.7 0.4 - 1.2 MG/DL [facility] SODIUM 140 134 - 145 MEQ/L [facility] POTASSIUM 6.3(HH) 3.5 - 5.1 MEQ/L [facility] POTASSIUM RESULT CHECKED CKD AND CALLED TO DR FRANCO, RESULTS REPEATED BACK [facility] CHLORIDE 102 96 - 108 MEQ/L [facility] CO2 27 22 - 32 MMOL/L [facility] CALCIUM 9.2 8.5 - 10.6 MG/DL [facility] TOTAL PROTEIN 6.9 5.9 - 8.2 G/DL [facility] ALBUMIN 4.0 3.4 - 4.8 G/DL [facility] AST 20 12 - 32 IU/L [facility] ALT 18 4 - 36 IU/L [facility] ALKALINE PHOSPHATASE 81 35 - 104 IU/L [facility] BILIRUBIN TOTAL 0.3 0.2 - 1.0 MG/DL [facility] ANION GAP 17 9 - 20 MEQ/L [facility] GLOBULIN (CALC) 2.9 2.4 - 3.9 G/DL [facility] ALBUMIN/GLOBULI N RATIO 1.4 1.0 - 2.3 RATIO [facility] OSMOLALITY, CALCULATED 290 275 - 295 MOSM/KG [facility] GFR >60 >60 mL/min/1. 73m [facility] GFR, >60 >60 mL/min/1. 73m [facility] TSH 2.06 0.27 - 4.20 uIU/ML [facility] STARKWEATHER WBC 9.7 4.5 - 11.0 K/UL [facility] RBC 4.92 4.2 - 5.4 M/UL [facility] HEMOGLOBIN 14.9 12.0 - 16.0 G/DL [facility] HEMATOCRIT 45.0 36 - 46 % [facility] MCV 91.5 82 - 100 FL [facility] MCH 30.3 27 - 34 PG [facility] MCHC 33.1 31 - 37 G/DL [facility] RDW 13.4 11 - 14.5 % [facility] PLATELETS 327 140 - 440 K/UL [facility] MPV 10.1 8.9 - 12.8 FL [facility] NEUTROPHILS 55.3 42.2 - 75.2 % [facility] LYMPHOCYTES 36.7 24 - 44 % [facility] MONOCYTES 6.9 2 - 10 % [facility] EOSINOPHILS 0.7 0 - 7 % [facility] BASOPHILS 0.4 0 - 1 % [facility] NEUTROPHIL ABSOLUTE 5.4 1.4 - 6.5 K/uL [facility] LYMPHOCYTE ABSOLUTE 3.6 1.2 - 4.0 K/UL [facility] MONOCYTE ABSOLUTE 0.7(H) 0.1 - 0.6 K/UL [facility] EOSINOPHIL ABSOLUTE 0.1 0 - 0.7 K/UL [facility] BASOPHILS ABSOLUTE 0.0 0 - 0.2 K/UL [facility] 10/27/2007 5:14 PM CONCRETE CARPENTER 10/27/2007 5:15 PM CONCRETE CARPENTER us Sp Franco MD CHEMISTRY ORDERABLES Final R esult [facility] CLIA# [id number] [address] [place] [address] documented in this encounter Visit Diagnoses Not on filedocumented in this encounter Care Teams Absorption Operator Relationship Specialty Start Date End Date Maria Luisa Juarez FNP PCP - General NURSE PRACTITIONER 10/02/17 documented as of this encounter
--- OUTSIDE RECORDS SUMMARY | 2025-05-04 12:11 | XMS_ITS | Encounter Summary ---
Author Organization [facility] Address [address] [place] [address] Care Team Providers Care Custom Van Converter Name Role Phone Maria Luisa Juarez Primary Care Provider [phone] Encounter Details Date Type Department Care Team (Latest Contact Info) Description 10/16/2005 Outpatient Historical [facility] [address] 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
--- OUTSIDE RECORDS SUMMARY | 2025-05-04 12:11 | XMS_ITS | Encounter Summary ---
Author Organization [facility] Address [address] [place] [address] Care Team Providers Care Nail Welter Name Role Phone Maria Luisa Juarez Primary Care Provider [phone] Encounter Details Date Type Department Care Team (Late st Contact Info) Description 11/03/2005 Outpatient Historical [facility] [address] [place] [address] Social History Tobacco Use Types Packs/Day Years Used Date Smoking Tobacco: Never Assessed Comments Unknown Sex and Gender Information Value Date Recorded Sex Assigned at Not on file 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
--- OUTSIDE RECORDS SUMMARY | 2025-05-04 12:11 | XMS_ITS | Encounter Summary ---
Author Organization [facility] Address [address] [place] [address] Care Team Providers Care Workers Compensation Adjuster Name Role Phone Maria Luisa Juarez Primary Care Provider [phone] Encounter Details Date Type Department Care Team (Latest Contact Info) Description 01/07/2006 Outpatient Historical [facility] [place] [address] [place] [phone] Sp Franco MD [address] [facility] [address] [place] [address] Lumbago (Primary Dx) Social History Tobacco Use Types Packs/Day Years Used Date Smoking Tobacco: Never Assessed Comments Unknown Sex and Gender Information Value Date Recorded Sex Assigned at Not on file 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
--- OUTSIDE RECORDS SUMMARY | 2025-05-04 12:11 | XMS_ITS | Encounter Summary ---
Author Organization [facility] Address [address] [place] [address] Care Team Providers Care Travel Journalist Name Role Phone Maria Luisa Juarez Primary Care Provider [phone] Encounter Details Date Type Department Care Team (Late st Contact Info) Description 11/01/2007 Outpatient Historical [facility] Renaldo Wyman MD NO ADDRESS ON FILE Social History Tobacco Use Types Packs/Day Years Used Date Smoking Tobacco: Never Assessed Comments Unknown Sex and Gender Information Value Date Recorded Sex Assigned at Not on file Legal Sex Female 6:18 AM GUIDANCE CONSULTANT Gender Identity Not on file Sexual Orientation Not on file documented as of this encounter Plan of Treatment Not on file documented as of this encounter Visit Diagnoses Not on filedocumented in this encounter Care Teams Travel Journalist Relationship Specialty Start Date End Date Maria Luisa Juarez FNP PCP - General NURSE PRACTITIONER 10/02/17 documented as of this encounter
--- OUTSIDE RECORDS SUMMARY | 2025-05-04 12:11 | XMS_ITS | Encounter Summary ---
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
--- OUTSIDE RECORDS SUMMARY | 2025-05-04 12:11 | XMS_ITS | Encounter Summary ---
Author Organization [facility] Address [address] [place] [address] Care Team Providers Care Finished Cloth Checker Name Role Phone Maria Luisa Juarez Primary Care Provider Encounter Details Date Type Department Care Team (Latest Contact Info) Description 10/06/2005 Outpatient Historical [facility] [address] [place] [address] [place] [address] [address] Ray Aguilera MD [address] [phone] LUMBOSACRAL SPONDYLOSIS (Primary Dx) Social History Tobacco Use Types Packs/Day Years Used Date Smoking Tobacco: Never Assessed Comments Unknown Sex and Gender Information Value Date Recorded Sex Assigned at Not on file 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
--- OUTSIDE RECORDS SUMMARY | 2025-05-04 12:11 | XMS_ITS | Encounter Summary ---
Author Organization [facility] Address [address] [place] [address] Care Team Providers Care Paper Tube Machine Operator Name Role Phone Maria Luisa Juarez Primary Care Provider [phone] Encounter Details Date Type Department Care Team (Late st Contact Info) Description 02/06/2003 Emergency [facility] Emergency Department [address] [place] [phone] Floyd Beatty DO NO ADDRESS ON FILE PSYCHOSIS NOS (CMS/HCC) (Primary Dx) Social History Tobacco Use Types Packs/Day Years Used Date Smoking Tobacco: Never Assessed Comments Unknown Sex and Gender Information Value Date Recorded Sex Assigned at Not on file 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
--- OUTSIDE RECORDS SUMMARY | 2025-05-04 12:11 | XMS_ITS | Encounter Summary ---
Author Organization [facility] Address [address] [place] [address] Care Team Providers Care Spring Salvage Worker Name Role Phone Maria Luisa Juarez Primary Care Provider Encounter Details Date Type Department Care Team (Latest Contact Info) Description 10/16/2005 Outpatient Historical [facility] [address] [place] [address] 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
--- OUTSIDE RECORDS SUMMARY | 2025-05-04 12:11 | XMS_ITS | Encounter Summary ---
Author Organization [facility] Address [address] [place] [address] Care Team Providers Care Real Time Trader Name Role Phone Maria Luisa Juarez [facility] Primary Care Provider [phone] Encounter Details Date Type Department Care Team (Latest Contact Info) Description 10/28/2007 Outpatient Historical [facility] Medicine- [address] [phone] Sp Franco MD [address] [facility] [address] [place] [address] Routine Gynecological Examination Social History Tobacco Use Types Packs/Day Years Used Date Smoking Tobacco: Never Assessed Comments Unknown Sex and Gender Information Value Date Recorded Sex Assigned at Not on file Legal Sex Female 6:18 AM CURATOR ZOOLOGICAL MUSEUM Gender Identity Not on file Sexual Orientation Not on file documented as of this encounter Plan of Treatment Not on file documented as of this encounter Procedures Procedure Name Priority Date/Time Associated Diagnosis Comments PATHOLOGY Routine 10/28/2007 5:39 AM CURATOR ZOOLOGICAL MUSEUM HPV HIGH RISK DNA DETECTION Routine 10/27/2007 10:20 AM CURATOR ZOOLOGICAL MUSEUM documented in this encounter Results * PATHOLOGY (10/28/2007 5:39 AM CURATOR ZOOLOGICAL MUSEUM) PATHOLOGY/CY TOLOGY REPORT [facility] Anatomic Pathology Dept [address] [facility] [address] Patient: CELINE CHATMAN Accn No: [id number] Collected: 10/28/2007 5:39:00 AM CYTOLOGY COMPUTER SECURITY MANAGER FINAL REPORT - - FOOD SERVER PAP History Specimen Source: cervical vaginal LMP: 09/24/07 Last Pap Date: 2005.31 Specimen Adequacy Satisfactory for interpretation. The smear lacks endocervical or metaplastic cells. Diagnosis NEGATIVE FOR INTRAEPITHELIAL LESION OR MALIGNANCY. (Previously noted as Within Normal Limits) Machine Load Clerk 10/29/07 Completed by: MAX MART (Electronically signed by) 10/29/07 Comment Repeat Pap smear within 6-12 months. Important Info About Pap Smears HPV Testing off the Thin Prep vial can be done as a means of further evaluating a Thin Prep Report. For information about ordering the HPV test, phone Cytology at . Treatment or follow-up recommendations (if any) that are considered within this report are based upon general recommendations as contained in 2001 Consensus Guidelines For Cervical Cytological Abnormalities KARELY: December 29, 2001, and are provided as a general guideline rather than as a specific recommendation. Final decisions about the most appropriate treatment and follow-up should be made on an individualized basis by the treating physician in consultation with his/her patient. CYTOLOGY ADDENDUM REPORT Discussion There was insufficient residual specimen to allow HPV testing. THIN PREP DIAGNOSIS: NEG Addendum Diagnosis QUANTITY INSUFFICIENT FOR HPV TESTING. Garrett Sullivan M.D. (Electronically signed by) Verified: 11/04/07 SEC/WLS INTERFACE SYSTEM 10/28/2007 5:39 AM CURATOR ZOOLOGICAL MUSEUM us Sp Franco MD PATHOLOGY/CYTOLOGY ORDERABLE S Edited INTERFACE SYSTEM Refer to clinic/hospital department * HPV HIGH RISK DNA DETECTION (10/27/2007 10:20 AM CURATOR ZOOLOGICAL MUSEUM) FINAL REPORT Quantity of specimen not sufficient for testing . If HPV testing is desired, submission of an additional sample is suggested. INTERFACE SYSTEM Specimen from genital system (specimen) (Cervical) 10/27/2007 10:20 AM CURATOR ZOOLOGICAL MUSEUM 10/30/2007 9:18 AM CURATOR ZOOLOGICAL MUSEUM Narrative INTERFACE SYSTEM - 10/30/2007 9:22 [place] [id number] HPV OVER 30 us Sp Franco MD PATHOLOGY/CYTOLOGY ORDERABLE S Final Result INTERFACE SYSTEM Refer to clinic/hospital department documented in this encounter Visit Diagnoses Diagnosis Routine gynecological examination documented in this encounter Care Teams Real Time Trader Relationship Specialty Start Date End Date Maria Luisa Juarez FNP PCP - General NURSE PRACTITIONER 10/02/17 documented as of this encounter
--- OUTSIDE RECORDS SUMMARY | 2025-05-04 12:11 | XMS_ITS | Encounter Summary ---
Author Organization [facility] Address [address] [place] [address] Care Team Providers Care It Programmer Name Role Phone Maria Luisa Juarez Primary Care Provider [phone] Encounter Details Date Type Department Care Team (Latest Contact Info) Description 10/02/2017 Ancillary Orders [facility] Pre-Registration [place] CALL TO MAKE APPOINTMENT ONLY [address] [place] [address] Maria Luisa Juarez FNP [address] [place] [address] Encounter for screening mammogram for malignant neoplasm of breast Social History Tobacco Use Types Packs/Day Years Used Date Smoking Tobacco: Every Day Cigarettes 2 27 Smokeless Tobacco: Never Alcohol Use Standard Drinks/Week Comments No 0 (1 standard drink = 0.6 oz pur e alcohol) Comments No Sex and Gender Information Value Date Recorded Sex Assigned at Not on file 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
--- OUTSIDE RECORDS SUMMARY | 2025-05-04 12:11 | XMS_ITS | Encounter Summary ---
Author Organization [facility] Address [address] [place] [address] Care Team Providers Care Rn Perinatal Name Role Phone Maria Luisa Juarez Primary Care Provider [phone] Encounter Details Date Type Department Care Team (Late st Contact Info) Description 02/06/2003 Inpatient Historical [facility] [address] [place] [phone] Rajni Castillo MD [address] [address] BIPOLAR AFFECTIVE NOS (CMS/HCC) (Primary Dx) Social History Tobacco Use Types Packs/Day Years Used Date Smoking Tobacco: Never Assessed Comments Unknown Sex and Gender Information Value Date Recorded Sex Assigned at Not on file 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
--- OUTSIDE RECORDS SUMMARY | 2025-05-04 12:11 | XMS_ITS | Encounter Summary ---
Author Organization [facility] Address [address] [place] [address] Care Team Providers Care Body Liner Name Role Phone Maria Luisa Juarez Primary Care Provider [phone] Encounter Details Date Type Department Care Team (Late st Contact Info) Description 01/29/2008 Emergency [facility] Emergency Department [address] [place] [address] Ed, Physician NO ADDRESS ON FILE April Coleman FNP NO ADDRESS ON FILE Bipolar Affective, Depress, Unspec (CMS/HCC); Tobacco Use Disorder; Personal History of Allergy to Analgesic Agent Social History Tobacco Use Types Packs/Day Years Used Date Smoking Tobacco: Never Assessed Comments Unknown Sex and Gender Information Value Date Recorded Sex Assigned at Not on file 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
--- OUTSIDE RECORDS SUMMARY | 2025-05-04 12:11 | XMS_ITS | Encounter Summary ---
Author Organization [facility] Address [address] [place] [address] Care Team Providers Care Streetcar Repairer Name Role Phone Maria Luisa Juarez Primary Care Provider [phone] Encounter Details Date Type Department Care Team (Latest Contact Info) Description 11/03/2005 Outpatient Historical [facility] Multidisciplinary Chronic Pain [address] [place] [address] Ray Aguilera MD [address] [phone] LUMBAGO (Primary Dx) Social History Tobacco Use Types Packs/Day Years Used Date Smoking Tobacco: Never Assessed Comments Unknown Sex and Gender Information Value Date Recorded Sex Assigned at Not on file Legal Sex Female 6:18 AM RETOUCHER Gender Identity Not on file Sexual Orientation Not on file documented as of this encounter Plan of Treatment Not on file documented as of this encounter Visit Diagnoses Diagnosis Lumbago- Primary documented in this encounter Care Teams Streetcar Repairer Relationship Specialty Start Date End Date Maria Luisa Juarez FNP PCP - General NURSE PRACTITIONER 10/02/17 documented as of this encounter
--- OUTSIDE RECORDS SUMMARY | 2025-05-04 12:11 | XMS_ITS | Encounter Summary ---
Author Organization [facility] Address [address] [place] [address] Care Team Providers Care Load Planner Name Role Phone Maria Luisa Juarez Primary Care Provider [phone] Encounter Details Date Type Department Care Team (Latest Contact Info) Description 10/29/[address] 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
--- OUTSIDE RECORDS SUMMARY | 2025-05-04 12:11 | XMS_ITS | Encounter Summary ---
Author Organization [facility] Address [address] [place] [address] Care Team Providers Care Engineer Specialist Name Role Phone Maria Luisa Juarez Primary Care Provider [phone] Encounter Details Date Type Department Care Team (Latest Contact Info) Description 04/15/2006 Outpatient Historical [facility] Medicine- [place] [address] [place] [phone] Sp Franco MD [address] [facility] [address] [place] [address] Carpal Tunnel Syndrome (Primary Dx) Social History Tobacco Use Types Packs/Day Years Used Date Smoking Tobacco: Never Assessed Comments Unknown Sex and Gender Information Value Date Recorded Sex Assigned at Not on file Legal Sex Female 6:18 AM FRONT SERVICES AGENT Gender Identity Not on file Sexual Orientation Not on file documented as of this encounter Plan of Treatment Not on file documented as of this encounter Visit Diagnoses Diagnosis Carpal tunnel syndrome- Primary documented in this encounter Care Teams Engineer Specialist Relationship Specialty Start Date End Date Maria Luisa Juarez FNP PCP - General NURSE PRACTITIONER 10/02/17 documented as of this encounter
--- OUTSIDE RECORDS SUMMARY | 2025-05-04 12:11 | XMS_ITS | Encounter Summary ---
Author Organization [facility] Address [address] [place] [address] Care Team Providers Care Braille Proofreader Name Role Phone Maria Luisa Juarez Primary Care Provider Encounter Details Date Type Department Care Team (Late st Contact Info) Description 07/31/2008 Emergency [facility] Emergency Department [address] [place] [address] Ed, Physician NO ADDRESS ON FILE April Coleman FNP NO ADDRESS ON FILE Unspecified Backache; Tobacco Use Disorder; Other and Unspecified Disc Disorder of Unspecified Region; Encounter for Long-Term (Current) Use of Other Medications; Personal History of Allergy to Analgesic Agent Social History Tobacco Use Types Packs/Day Years Used Date Smoking Tobacco: Every Day Cigarettes 2 27 Alcohol Use Standard Drinks/Week Comments No 0 (1 standard drink = 0.6 oz pur e alcohol) Comments No Sex and Gender Information Value Date Recorded Sex Assigned at Not on file Legal Sex Female 6:18 AM 

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
--- OUTSIDE RECORDS SUMMARY | 2025-05-04 12:11 | XMS_ITS | Encounter Summary ---
Author Organization [facility] Address [address] [place] [address] Care Team Providers Care Chemical Compounder Name Role Phone Maria Luisa Juarez Primary Care Provider Encounter Details Date Type Department Care Team (Late st Contact Info) Description 07/12/1997 Emergency 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
--- OUTSIDE RECORDS SUMMARY | 2025-05-04 12:11 | XMS_ITS | Encounter Summary ---
Author Organization [facility] Address [address] [place] [address] Care Team Providers Care Weight Inspector Name Role Phone Maria Luisa Juarez Primary Care Provider [phone] Encounter Details Date Type Department Care Team (Late st Contact Info) Description 10/07/2004 Outpatient Historical [facility] [address] [address] [place] [address] Marilin Nascimento MD [address] [address] Social History Tobacco Use Types Packs/Day Years Used Date Smoking Tobacco: Never Assessed Comments Unknown Sex and Gender Information Value Date Recorded Sex Assigned at Not on file 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
--- OUTSIDE RECORDS SUMMARY | 2025-05-04 12:11 | XMS_ITS | Encounter Summary ---
Author Organization [facility] Address [address] [place] [address] Care Team Providers Care Medical Insurance Claims Processor Name Role Phone Maria Luisa Juarez BUSINESS TRANSFORMATION MANAGER Primary Care Provider [phone] Encounter Details Date Type Department Care Team (Late st Contact Info) Description 09/01/2007 Emergency [facility] Emergency Department [address] [place] [address] Ed, Physician NO ADDRESS ON FILE Tavo Velasquez PA [address] [place] [address] Lumbago; Unspecified Myalgia and Myositis; Osteoarth NOS-Unspec; Tobacco Use Disorder; Disc Displacement; Encounter for Long-Term (Current) Use of Other Medications; Personal History of Allergy to Other Specified Medicinal Agents Social History Tobacco Use Types Packs/Day Years Used Date Smoking Tobacco: Never Assessed Comments Unknown Sex and Gender Information Value Date Recorded Sex Assigned at Not on file 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 Gender Identity Not on file Sexual Orientation Not on file documented as of this encounter Plan of Treatment Not on file documented as of this encounter Visit Diagnoses Diagnosis Lumbago Myalgia and myositis, unspecified Mylagia and myositis, unspecified Osteoarthrosis, unspecified whether generalized or localized, unspecified site Tobacco use disorder Displacement of intervertebral disc, site unspecified, without myelopathy Encounter for long-term (current) use of other medications Personal history of allergy to other specified medicinal agents documented in this encounter Care Teams Medical Insurance Claims Processor Relationship Specialty Start Date End Date Maria Luisa Juarez FNP PCP - General NURSE PRACTITIONER 10/02/17 documented as of this encounter
--- OUTSIDE RECORDS SUMMARY | 2025-05-04 12:11 | XMS_ITS | Encounter Summary ---
Author Organization [facility] Address [address] [place] [address] Care Team Providers Care Patient Resource Coordinator Name Role Phone Maria Luisa Juarez Primary Care Provider [phone] Encounter Details Date Type Department Care Team (Latest Contact Info) Description 05/08/1998 Outpatient Historical [facility] [place], Rupert Manzanares MD NO ADDRESS ON FILE Supervision of other normal (Primary Dx) Social History Tobacco Use Types Packs/Day Years Used Date Smoking Tobacco: Never Assessed Comments Unknown Sex and Gender Information Value Date Recorded Sex Assigned at Not on file 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
--- OUTSIDE RECORDS SUMMARY | 2025-05-04 12:11 | XMS_ITS | Encounter Summary ---
Author Organization [facility] Address [address] [place] [address] Care Team Providers Care Rib Cloth Knitter Name Role Phone Maria Luisa Juarez Primary Care Provider [phone] Encounter Details Date Type Department Care Team (Latest Contact Info) Description 12/04/2005 Outpatient Historical [facility] Chronic Pain [address] [place] [phone] Ray Aguilera MD [address] [phone] Social History Tobacco Use Types Packs/Day Years Used Date Smoking Tobacco: Never Assessed Comments Unknown Sex and Gender Information Value Date Recorded Sex Assigned at Not on file 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
--- OUTSIDE RECORDS SUMMARY | 2025-05-04 12:11 | XMS_ITS | Encounter Summary ---
Author Organization [facility] Address [address] [place] [address] Care Team Providers Care Director Operating Room Name Role Phone Maria Luisa Juarez Primary Care Provider [phone] Encounter Details Date Type Department Care Team (Late st Contact Info) Description 01/05/1998 Emergency 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
--- OUTSIDE RECORDS SUMMARY | 2025-05-04 12:11 | XMS_ITS | Encounter Summary ---
Author Organization [facility] Address [address] [place] [address] Care Team Providers Care Blocking Machine Operator Name Role Phone Maria Luisa Juarez Primary Care Provider [phone] Encounter Details Date Type Department Care Team (Late st Contact Info) Description 10/28/2007 Outpatient Historical [facility] [address] [place] [phone] Sp Franco MD [address] [facility] [address] [place] [address] Social History Tobacco Use Types Packs/Day Years Used Date Smoking Tobacco: Never Assessed Comments Unknown Sex and Gender Information Value Date Recorded Sex Assigned at Not on file 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
[2025-05-04 12:12] VITALS: BP 149/103; PULSE 70; RESP 18; O2SAT 98
--- NOTE | 2025-05-04 12:12 | ED_ITS ---
HPI - Headache 2 General: Chief Complaint: Ear Stated Complaint: headache, R sided Time Seen by Provider: 05/04/25 12:07 History of Present Illness: 55-year-old female with a history of sta ge IV breast cancer who is receiving chemotherapy currently and spent about a month in the hospital getting the radiation therapy etc., morbid obesity, COPD, sleep apnea who presents to the emergency room with right sided ear and head pain. Says it hurts in her ear and then when she lays down the surface of her head hurts as well. No fevers. She has had some congestion recently. No altered mental status. No focal motor deficits. No chest pain. No abdominal pain. No vomiting. Related Data Home Medications ?Medication ?Instructions ?Recorded ?Confirmed gabapentin 600 mg tablet 600 mg PO TID 01/30/2208/09 clonazepam 1 mg tablet mg PO 08/09/24 08/09/24 promethazine 12.5 mg tablet mg PO 08/09/24 08/09/24 tizanidine 2 mg tablet mg PO 08/09/24 08/09/24 Previous Rx's ?Medication ?Instructions ?Recorded albuterol sulfate 90 mcg/actuation 2 inh inhalation Q4 H PRN shortness 03/25/22 aerosol inhaler of breath or wheezing #8.5 g stefania albuterol sulfate 2.5 mg/3 mL 2.5 mg (3 mL) inhalation Q6H #90 mL 10/27/22 (0.083 %) solution for nebulization ondansetron 8 mg disintegrating 8 mg PO Q6H #14 tabs 1 tablet polyethylene glycol 3350 17 17 g PO DAILY #510 grams 1 gram/dose oral powder (Miralax) oxycodone-acetaminophen 7.5 mg-325 2 tab PO Q6H 30 day s #60 tabs 08/09/24 mg tablet cephalexin 500 mg tablet 500 mg PO TID 7 days #21 tab s 05/04/25 Allergies Allergy/AdvReac Type Severity Reaction Status Date / Time No Known Allergies Allergy Verified 08/09/24 09:47 Review of Systems 2 Narrative: Constitutional symptoms: Negative except as documented in HPI. Skin symptoms: Negative except as documented in HPI. Eye symptoms: Negative except as documented in HPI. ENMT symptoms: Negative except as documented in HPI. Respiratory symptoms: Negative except as documented in HPI. Cardiovascular symptoms: Negative except as documented in HPI. Gastrointestinal symptoms: Negative except as documented in HPI. Genitourinary symptoms: Negative except as documented in HPI. Musculoskeletal symptoms: Negative except as documented in HPI. Neurologic symptoms: Negative except as documented in HPI. Psychiatric symptoms: Negative except as documented in HPI. Endocrine symptoms: Negative except as documented in HPI. PFSH ED 2 PFSH: Medical History (Updated 05/04/25 @ 13:43 by Ginger Guerra MD) Hemoptysis COPD (chronic obstructive pulmonary disease) Sleep apnea Family History Mother Cushings syndrome Grandmother Cancer maternal grandmother; breast Social History Smoking and tobacco/nicotine status: current every day tobacco/nicotine user Physical Exam 2 Narrative: EXAM NARRATIVE: General: Alert, no acute distress. Skin: warm and dry Head: Normocephalic Neck: Trachea midline Eye: Extraocular movements are intact. Ears, nose, mouth and throat: Oral mucosa moist. Right eardrum is erythematous and bulging. Pain to palpation of the ear canal Respiratory: Respirations are non-labored Musculoskeletal: Normal ROM Gastrointestinal: Abdomen does not appear distended Neurological: Alert and oriented, No focal neurological deficit observed. Psychiatric: Cooperative, appropriate mood & affect. Course 2 Vital Signs: Vital signs: Vital Signs Pulse Rate 70 05/04/25 12:12 Respiratory Rate 18 05/04/25 12:12 Blood Pressure 149/103 05/04/25 12:17 Pulse Oximetry 98 05/04/25 12:17 Oxygen Delivery Me thod Room Air 05/04/25 12:17 MDM - Headache Medical Decision Making Medical decision making: Differential diagnosis including but not limited to and based on the above HPI, review of systems and physical exam: In this patient with ear pain and obvious signs of otitis media most likely this is just otitis media. However the patient is extremely worried about spread of her cancer so we are going to do a CT scan. She says she was also going to go to get labs drawn but instead she came here and is requesting that her labs be drawn here. Since has been receiving chemotherapy I do not think this is too far out of line. Orders placed to evaluate differential diagnosis based on the above differential, HPI and physical exam CT head: No acute intracranial process. no intracranial hemorrhage, no evidence of infarct. no evidence of acute fracture.This was reviewed and interpreted by myself the ER physician. Lab Review: Laboratory results were reviewed and interpreted by myself the emergency room physician. Borderline neutropenia. White count is 2.4 with an ANC of 1000. No renal failure. I reviewed the patient's medical record. 55-year-old female with a history of stage IV breast cancer who is receiving chemotherapy currently and spent about a month in the hospital getting the radiation therapy etc., morbid obesity, COPD, sleep apnea. I actually diagnosed her breast cancer back in June here in the emergency room. Breast mass was found incidentally. Reexamination: Patient remained stable. No increased work of breathing. No altered mental status. No focal motor deficits. Assessment and plan: Otitis media ?First dose of Keflex in the emergency room - Discharged home - Discussed plan with patient. Answered any questions. - Evaluation and treatment of this problem were appropriate in the emergency setting. Lab Data 05/04/25 14:13 05/04/25 14:[address] 05/04/25 12:11 IMPRESSION: 1. No evidence of intracranial hemorrhage or mass effect. 2. No acute intracranial findings. Laboratory Results WBC 2.41 10^3/uL (3.29-11.43) L 05/04/25 14:13 RBC 3.49 10^6/uL (3.85-5.65) L 05/04/25 14:13 Hgb 12.80 g/dL (11.27-16.99) 05/04/25 14:13 Hct 38.1 % (36-47) 05/04/25 14:13 MCV 109.2 fl (85-98) H 05/04/25 14:13 MCH 36.7 pg (27-33) H 05/04/25 14:13 MCHC 33.6 g/dL (30-55) 05/04/25 14:13 RDW 14.6 % (12.1-15.1) 05/04/25 14:13 Plt Count 200 10^3/cmm (157-399) 05/04/25 14:13 MPV 8.9 fL (7.4-10.4) 05/04/25 14:13 Neut % (Auto) 41.1 % 05/04/25 14:13 Lymph % (Auto) 49.8 % 05/04/25 14:13 Schleicher % (Auto) 6.6 % 05/04/25 14:13 Eos % (Auto) 0.8 % 05/04/25 14:13 Baso % (Auto) 1.7 % 05/04/25 14:13 Neut # (Auto) 0.99 10^3/uL (1.8-7.7) L 05/04/25 14:13 Lymph # (Auto) 1.2 10^3/uL (0.8-4.8) 05/04/25 14:13 Schleicher # (Auto) 0.2 10^3/uL (0.2-0.9) 05/04/25 14:13 Eos # (Auto) 0.0 10^3/uL (0.0-0.8) 05/04/25 14:13 Baso # (Auto) 0.0 10^3/uL (0.0-0.1) 05/04/25 14:13 Nucleated RBC % (auto) 0 % 05/04/25 14:13 Nucleated RBCs # 0.0 /100WBC 05/04/25 14:13 Sodium 138 mmol/L (136-145) 05/04/25 14:13 Potassium 4.3 mmol/L (3.5-5.1) 05/04/25 14:13 Chloride 102 mmol/L (98-107) 05/04/25 14:13 Carbon Dioxide 26 mmol/L (22-29) 05/04/25 14:13 Anion Gap 14.3 (5-19) 05/04/25 14:13 BUN 10 mg/dL (6-20) 05/04/25 14:13 Creatinine 0.9 mg/dL (0.5-0.9) 05/04/25 14:13 GFR Calculation 64.5 mL/min (90-130) L 05/04/25 14:13 Glucose 96 mg/dL (65-115) 05/04/25 14:13 Calculated Osmolality 285 mOsm/kg (285-295) 05/04/25 14:13 Calcium 9.5 mg/dL (8.5-10.5) 05/04/25 14:13 Total Bilirubin 0.5 mg/dL (0.15-1.2) 05/04/25 14:13 AST 10 U/L (0-32) 05/04/25 14:13 ALT 6 U/L (0-33) 05/04/25 14:13 Alkaline Phosphatase 122 U/L (35-105) H 05/04/25 14:13 Total Protein 7.0 g/dL (6.6-8.7) 05/04/25 14:13 Albumin 3.7 g/dL (3.5-5.2) 05/04/25 14:13 Globulin 3.3 g/dL (1.3-4.6) 05/04/25 14:13 All radiology interpretation(s) finalized by discharge Discharge Plan Discharge Patient Disposition: Home Clinical Impression: Otitis media, Stage IV breast cancer in female Condition: Stable Prescriptions: New cephalexin 500 mg tablet 500 mg PO TID 7 Days Qty: 21 0RF No Action tizanidine 2 mg tablet PO promethazine 12.5 mg tablet PO clonazepam 1 mg tablet PO oxycodone-acetaminophen 7.5-325 mg tablet 2 tab PO Q6H 30 Days Qty: 60 0RF gabapentin 600 mg tablet 600 mg PO TID albuterol sulfate 2.5 mg /3 mL (0.083 %) solution for nebulization 2.5 mg inhalation Q6H Qty: 90 0RF Rx Instructions: Use every 4-6 hours as needed albuterol sulfate 90 mcg/actuation HFA aerosol inhaler 2 inh inhalation Q4H PRN (Reason: shortness of breath or wheezing) Qty: 8.5 0RF ondansetron 8 mg tablet,disintegrating 8 mg PO Q6H Qty: 14 0RF Rx Instructions: Take 1/2-1 tab every 6 hours as needed for nausea and vomiting polyethylene glycol 3350 [Miralax] 17 gram/dose powder 17 g PO DAILY Qty: 510 0RF Rx Instructions: Take 1 scoop daily while taking pain medications. Discharge Orders: Discharge ED (Routine); Ordered 05/04/25 Ordered By: Ginger Guerra Referrals: Lilly Beck MD [Primary Care Provider, Family Practice] Discharge Diet: Advance as tolerated Discharge Activity: Increase activity as tolerated Patient Instructions: Ear Infection (ED), Opioid Safety, Pain Management, Patient Portal & Marko Instructions Activity Restrictions/Additional Instructions: Thank you for choosing [facility] healthcare needs today. You have been screened and evaluated and felt safe for discharge. Health conditions do change or evolve sometimes and as such it is important that you follow up with your Primary Doctor to be re checked, 3-5 days is a general good time frame for follow up. You are always welcome to return to the ED for re assessment if your symptoms are worsening or you have new concerns Print Language: [place] Citizen Coding Level of Care Code ED Cigar Sorter for Hang Cooper
--- OUTSIDE RECORDS SUMMARY | 2025-05-04 12:12 | XMS_ITS | Encounter Summary ---
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
--- OUTSIDE RECORDS SUMMARY | 2025-05-04 12:12 | XMS_ITS | Encounter Summary ---
Author Organization [facility] Address [address] [place] [address] Care Team Providers Care Material Man Name Role Phone Maria Luisa Juarez Primary Care Provider [phone] Encounter Details Date Type Department Care Team (Latest Contact Info) Description 02/06/2003 Outpatient Historical 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
--- OUTSIDE RECORDS SUMMARY | 2025-05-04 12:12 | XMS_ITS | Encounter Summary ---
Author Organization [facility] Address [address] [place] [address] Care Team Providers Care Ward Maid Name Role Phone Maria Luisa Juarez HEATING UNIT MECHANIC Primary Care Provider [phone] Encounter Details Date Type Department Care Team (Late st Contact Info) Description 12/30/2006 Emergency [facility] Emergency Department [address] [place] [address] Nash Yoo MD [address] [place] [address] Unspecified Disorder of the Teeth and Supporting Structures (Primary Dx) Social History Tobacco Use Types Packs/Day Years Used Date Smoking Tobacco: Never Assessed Comments Unknown Sex and Gender Information Value Date Recorded Sex Assigned at Not on file 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 Gender Identity Not on file Sexual Orientation Not on file documented as of this encounter Plan of Treatment Not on file documented as of this encounter Procedures Procedure Name Priority Date/Time Associated Diagnosis Comments URINALYSIS MICROSCOPY ONLY Routine 12/30/2006 3:42 PM CDT URINALYSIS W/REFLEX MICROSCOPIC Routine 12/30/2006 3:42 PM CDT documented in this encounter Results * (ABNORMAL) URINALYSIS MICROSCOPY ONLY (12/30/2006 3:42 PM CDT) WBC URINE 0-2 0 - 2 INTERFACE SYSTEM RBC UA 0-2 0 - 2 INTERFACE SYSTEM HYALINE CAST None Seen 0 - 2 INTERFA CE SYSTEM BACTERIA UA Few(A) None Seen INTERFAC E SYSTEM 12/30/2006 3:42 PM CDT us Nash Yoo MD URINE ORDERABLES Edited Performing Organization Address [facility] Phone Number INTERFACE SYSTEM Refer to clinic/hospital department * (ABNORMAL) URINALYSIS (12/30/2006 3:42 PM CDT) COLOR UA Yellow Straw INTERFACE SYSTEM CLARITY UA Clear Clear INTERFACE SYSTEM LEUKOCYTE ESTERASE UA NEGATIVE NEGATIVE INTERFACE SYSTEM NITRITE UA NEGATIVE NEGATIVE INTERFACE SYSTEM PH UA 6.0 5.0 - 9.0 INTERFACE SYSTEM PROTEIN UA NEGATIVE NEGATIVE INTERFACE SYSTEM GLUCOSE UA NEGATIVE NEGATIVE INTERFACE SYSTEM KETONES UA NEGATIVE NEGATIVE INTERFACE SYSTEM UROBILINOGEN UA 0.2 0.2 INTE RFACE SYSTEM BILIRUBIN UA NEGATIVE NEGATIVE INTERFA CE SYSTEM BLOOD UA Trace(A) NEGATIVE INTERFACE SYSTEM SPECIFIC GRAVITY UA 1.025 1.005 - 1.030 INTERFACE SYSTEM MICRO EXAM Yes(A) No INTERFACE SYSTEM 12/30/2006 3:42 PM CDT us Nash Yoo MD URINE ORDERABLES Edited Performing Organization Address [facility] Phone Number INTERFACE SYSTEM Refer to clinic/hospital department documented in this encounter Visit Diagnoses Diagnosis Unspecified disorder of the teeth and supporting structures- Primary documented in this encounter Care Teams Ward Maid Relationship Specialty Start Date End Date Maria Luisa Juarez FNP PCP - General NURSE PRACTITIONER 10/02/17 documented as of this encounter
--- OUTSIDE RECORDS SUMMARY | 2025-05-04 12:12 | XMS_ITS | Encounter Summary ---
Author Organization [facility] Address [address] [place] [address] Care Team Providers Care Dynamics Ax Technical Architect Name Role Phone Maria Luisa Juarez PRECINCT CAPTAIN Primary Care Provider [phone] Encounter Details Date Type Department Care Team (Late st Contact Info) Description 03/17/2007 Emergency [facility] Emergency Department [address] [place] [address] Keith Stringer MD NO ADDRESS ON FILE Dehydration (Primary Dx) Social History Tobacco Use Types Packs/Day Years Used Date Smoking Tobacco: Never Assessed Comments Unknown Sex and Gender Information Value Date Recorded Sex Assigned at Not on file 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 Gender Identity Not on file Sexual Orientation Not on file documented as of this encounter Plan of Treatment Not on file documented as of this encounter Procedures Procedure Name Priority Date/Time Associated Diagnosis Comments URINALYSIS MICROSCOPY ONLY Routine 03/17/2007 11:30 AM CDT DRUG SCREEN, URINE Routine 03/17/2007 11 :30 AM CDT URINALYSIS W/REFLEX MICROSCOPIC Routine 03/17/2007 11:30 AM CDT CBC WITH DIFFERENTIAL Routine 03/17/2007 11:16 AM CDT COMPREHENSIVE METABOLIC PANEL Routine 03/17/2007 11:16 AM CDT documented in this encounter Results * (ABNORMAL) DRUG SCREEN, URINE (03/17/2007 11:30 AM CDT) AMPHETAMINE QUAL, URINE Drug Negative Drug Negative INTERFACE SYSTEM Comment: All components of the Urine Drug [...] above cutoff value are reported as Positive. BARBITURATE QUAL, URINE Drug Negative Drug Negative INTERFACE SYSTEM COCAINE QUAL URINE Drug Negative Drug Negative INTERFACE SYSTEM PCP QUAL, URINE Drug Negative Drug Negative INTERFACE SYSTEM CANNABINOIDS QUAL, URINE Drug Negative Drug Negative INTERFACE SYSTEM BENZODIAZEPINE QUAL, URINE Drug Positive(A) Drug Negative INTERFACE SYSTEM OPIATE QUAL, URINE Drug Positive(A) Drug Negative INTERFACE SYSTEM 03/17/2007 11:3 0 AM CDT us Keith Stringer MD URINE ORDERABLES Edited Performing Organization Address [facility] Phone Number INTERFACE SYSTEM Refer to clinic/hospital department * (ABNORMAL) URINALYSIS MICROSCOPY ONLY (03/17/2007 11:30 AM CDT) WBC URINE 0-2 0 - 2 INTERFACE SYSTEM RBC UA 0-2 0 - 2 INTERFACE SYSTEM HYALINE CAST 6-10(A) 0 - 2 INTERFA CE SYSTEM BACTERIA UA Small(A) None Seen INTERFAC E SYSTEM 03/17/2007 11:3 0 AM CDT Keith Stringer MD URINE ORDERABLES Edited Performing Organization Address [facility] Phone Number INTERFACE SYSTEM Refer to clinic/hospital department * (ABNORMAL) URINALYSIS (03/17/2007 11:30 AM CDT) COLOR UA Yellow Straw INTERFACE SYSTEM [...] Trace(A) NEGATIVE INTERFACE SYSTEM SPECIFIC GRAVITY UA 1.030 1.005 - 1.030 INTERFACE SYSTEM MICRO EXAM Yes(A) No INTERFACE SYSTEM 03/17/2007 11:3 0 AM CDT us Keith Stringer MD URINE ORDERABLES Edited INTERFACE SYSTEM Refer to clinic/hospital department * (ABNORMAL) COMPREHENSIVE METABOLIC PANEL (03/17/2007 11:16 AM CDT) GLUCOSE 111(H) 70 - 110 mg/dL INTERFACE SYSTEM BUN 15 7 - 17 mg/dL INTERFACE SYSTEM CREATININE 0.9 0.7 - 1.2 mg/dL INTERFACE SYSTEM SODIUM 141 136 - 145 mEq/L INTERFACE SYSTEM POTASSIUM 4.2 3.5 - 5.0 mEq/L INTERFACE SYSTEM CHLORIDE 108 95 - 110 mEq/L INTERFACE SYSTEM CO2 25 22 - 32 mmol/l INTERFACE SYSTEM CALCIUM 10.1 8.4 - 10.5 mg/dL INTERFACE SYSTEM TOTAL PROTEIN 7.1 6.3 - 8.2 g/dL INTERFACE SYSTEM ALBUMIN 4.1 3.5 - 5.0 g/dL INTERFACE SYSTEM ALKALINE PHOSPHATASE 75 25 - 100 U/L INTERFACE SYSTEM AST 17 8 - 33 U/L INTERFACE SYSTEM ALT 16 4 - 36 IU/L INTERFACE SYSTEM BILIRUBIN TOTAL 0.2(L) 0.3 - 1.2 mg/dL INTERFACE SYSTEM GLOBULIN (CALC) 3.0 2.4 - 3.9 g/dL INTERFACE SYSTEM ALBUMIN/GLOBULIN RATIO 1.4 1.0 - 2.3 INTERFACE SYSTEM ANION GAP 12 9 - 20 mEq/L INTERFACE SYSTEM OSMOLALITY, CALCULATED 292 275 - 295 mOsm/Kg INTERFACE SYSTEM 03/17/2007 11:1 6 AM CDT us Keith Stringer MD CHEMISTRY ORDERABLES Edited INTERFACE SYSTEM Refer to clinic/hospital department * (ABNORMAL) CBC WITH DIFFERENTIAL (03/17/2007 11:16 AM CDT) WBC 8.2 4.5 - 11.0 K/ul INTERFACE SYSTEM RBC 4.87 4.20 - 5.40 Mil/ul INTERFACE SYSTEM HEMOGLOBIN 15.0 12.0 - 16.0 g/dL INTERFACE SYSTEM HEMATOCRIT 43.2 36.0 - 46.0 % INTERFACE SYSTEM MCV 88.7 84.0 - 103.0 Fl INTERFACE SYSTEM MCH 30.8 27.0 - 34.0 pg INTERFACE SYSTEM MCHC 34.7 30.0 - 35.0 g/dL INTERFACE SYSTEM RDW 12.7 11.0 - 14.5 % INTERFACE SYSTEM PLATELETS 279 140 - 440 K/ul INTERFACE SYSTEM MPV 10.0 8.9 - 12.8 Fl INTERFACE SYSTEM NEUTROPHILS 47.2 42.2 - 75.2 % INTERFACE SYSTEM LYMPHOCYTES 42.4 24.0 - 44.0 % INTERFACE SYSTEM MONOCYTES 8.3 2.0 - 10.0 % INTERFACE SYSTEM EOSINOPHILS 1.7 0.0 - 7.0 % INTERFACE SYSTEM BASOPHILS 0.4 0.0 - 1.0 % INTERFACE SYSTEM NEUTROPHIL ABSOLUTE 3.9 2.0 - 8.0 K/ul INTERFACE SYSTEM LYMPHOCYTE ABSOLUTE 3.5 1.2 - 4.0 K/ul INTERFACE SYSTEM MONOCYTE ABSOLUTE 0.7(H) 0.1 - 0.6 K/ul INTERFACE SYSTEM EOSINOPHIL ABSOLUTE 0.1 0.0 - 0.7 K/ul INTERFACE SYSTEM BASOPHILS ABSOLUTE 0.0 0.0 - 0.2 K/ul INTERFACE SYSTEM 03/17/2007 11:1 6 AM CDT Keith Stringer MD HEMATOLOGY ORDERABLES Edited INTERFACE SYSTEM Refer to clinic/hospital department documented in this encounter Visit Diagnoses Diagnosis Dehydration- Primary documented in this encounter Care Teams Dynamics Ax Technical Architect Relationship Specialty Start Date End Date Maria Luisa Juarez FNP PCP - General NURSE PRACTITIONER 10/02/17 documented as of this encounter
--- OUTSIDE RECORDS SUMMARY | 2025-05-04 12:12 | XMS_ITS | Encounter Summary ---
Author Organization [facility] Address [address] [place] [address] Care Team Providers Care Sulfuric Acid Plant Supervisor Name Role Phone Maria Luisa Juarez RED CAP Primary Care Provider [phone] Encounter Details Date Type Department Care Team (Latest Contact Info) Description 06/18/2007 Outpatient Historical [facility] [place] [address] [place] [phone] Sp Franco MD [address] [facility] [address] [place] [address] Abdominal Pain, Epigastric (Primary Dx) Social History Tobacco Use Types Packs/Day Years Used Date Smoking Tobacco: Never Assessed Comments Unknown Sex and Gender Information Value Date Recorded Sex Assigned at Not on file 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 Technique: 5 mm volumetric acquisition with oral and intravenous contrast. Contrast: 125 mL intravenous Optiray-240. Comparison: CT abdomen and pelvis report of 02/04/2006 from [facility]. Images wereunavailable for direct comparison. Findings: Calcified granuloma of the posterior basal segment of the left lower lobe is present. 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 The liver, relatively collapsedgallbladder, spleen, adrenal glands, pancreas, and kidneys are unremarkable. Chronic bilateral parsdefects of L5 with associated grade 2 anterolisthesis of L5 on S1 with moderate to severeintervertebral disc space narrowing at L5-S1 is seen. Impression: 1. Negative for acute intra-abdominal process. 2. Old granulomatous disease. 3. Chronic bilateral pars defects of L5. - Dictated By: Bala Lala M.D. Electronically Signed By: Bala Lala M.D. Date Signed: 06/19/07 Procedure Note 07/29/2009 Exam: CT Abdomen with ContrastDate/Time of Exam: Jun 18, 2007 7:16:19 PMHistory: Epigastric pain. Technique: 5 mm volumetric acquisition with oral and intravenous contrast. Contrast: 125 mL intravenous Optiray-240. Comparison: CT abdomen and pelvis report of 02/04/2006 from [facility]. Images wereunavailable for direct comparison. Findings: Calcified granuloma of the posterior basal segment of the left lower lobeis present. 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 The liver,relatively collapsedgallbladder, spleen, adrenal glands, pancreas, and kidneys are unremarkable. Chronicbilateral parsdefects of L5 with associated grade 2 anterolisthesis of L5 on S1 with moderate tosevereintervertebral disc space narrowing at L5-S1 is seen. Impression: 1. Negative for acute intra-abdominal process. 2. Old granulomatous disease. 3. Chronic bilateral pars defects of L5. - Dictated By: Bala Lala M.D. Electronically Signed By: Bala Lala M.D. Date Signed: 06/19/[address] ORDERABLES Final Result documented in this encounter Visit Diagnoses Diagnosis Abdominal pain, epigastric- Primary documented in this encounter Care Teams Sulfuric Acid Plant Supervisor Relationship Specialty Start Date End Date Maria Luisa Juarez FNP PCP - General NURSE PRACTITIONER 10/02/17 documented as of this encounter
--- OUTSIDE RECORDS SUMMARY | 2025-05-04 12:12 | XMS_ITS | Encounter Summary ---
Author Organization [facility] Address [address] [place] [address] Care Team Providers Care Production Tester Name Role Phone Maria Luisa Juarez Primary Care Provider [phone] Encounter Details Date Type Department Care Team (Latest Contact Info) Description 10/13/2006 Outpatient Historical [facility]- [address] [phone] Sp Franco MD [address] [facility] [address] [place] [address] Unspecified Myalgia and Myositis (Primary Dx); Unspecified Backache; Unspecified Essential Hypertension; Anxiety State, Unspecified Social History Tobacco Use Types Packs/Day Years Used Date Smoking Tobacco: Never Assessed Comments Unknown Sex and Gender Information Value Date Recorded Sex Assigned at Not on file 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
--- OUTSIDE RECORDS SUMMARY | 2025-05-04 12:12 | XMS_ITS | Encounter Summary ---
Author Organization [facility] Address [address] [place] [address] Care Team Providers Care Behavioral Intervention Specialist Name Role Phone Maria Luisa Juarez [employer] Primary Care Provider [phone] Encounter Details Date Type Department Care Team (Late st Contact Info) Description 10/02/2004 Emergency [facility] Emergency Department [address] [place] [address] Keith Stringer MD NO ADDRESS ON FILE ABDOMINAL PAIN UNSPEC SITE (Primary Dx) Social History Tobacco Use Types Packs/Day Years Used Date Smoking Tobacco: Never Assessed Comments Unknown Sex and Gender Information Value Date Recorded Sex Assigned at Not on file Legal Sex Female 6:18 AM 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 CARE TECHNICIAN Gender Identity Not on file Sexual Orientation Not on file documented as of this encounter Plan of Treatment Not on file documented as of this encounter Procedures Procedure Name Priority Date/Time Associated Diagnosis Comments CBC WITH DIFFERENTIAL Routine 10/02/2004 9:05 PM URGENT CARE TECHNICIAN LIPASE Routine 10/02/2004 9:05 PM URGENT CARE TECHNICIAN AMYLASE Routine 10/02/2004 9:05 PM URGENT CARE TECHNICIAN COMPREHENSIVE METABOLIC PANEL Routine 10/02/2004 9:05 PM URGENT CARE TECHNICIAN URINALYSIS MICROSCOPY ONLY Routine 10/02/2004 8:43 PM URGENT CARE TECHNICIAN URINALYSIS W/REFLEX MICROSCOPIC Routine 10/02/2004 8:43 PM URGENT CARE TECHNICIAN documented in this encounter Results * (ABNORMAL) CBC WITH DIFFERENTIAL (10/02/2004 9:05 PM URGENT CARE TECHNICIAN) WBC 10.1 4.5 - 11.0 K/ul INTERFACE SYSTEM RBC 4.40 4.20 - 5.40 Mil/ul INTERFACE SYSTEM HEMOGLOBIN 14.1 12.0 - 16.0 g/dL INTERFACE SYSTEM HEMATOCRIT 42.5 36.0 - 46.0 % INTERFACE SYSTEM MCV 96.6 84.0 - 103.0 Fl INTERFACE SYSTEM MCH 32.0 27.0 - 34.0 pg INTERFACE SYSTEM MCHC 33.2 30.0 - 35.0 g/dL INTERFACE SYSTEM RDW 12.6 11.0 - 14.5 percent(in active) INTERFACE SYSTEM PLATELETS 327 140 - 440 K/ul INTERFACE SYSTEM MPV 9.3 8.9 - 12.8 Fl INTERFACE SYSTEM NEUTROPHILS 57.8 42.2 - 75.2 percent(in active) INTERFACE SYSTEM LYMPHOCYTES 33.8 24.0 - 44.0 percent(in active) INTERFACE SYSTEM MONOCYTES 6.9 2.0 - 10.0 percent(in active) INTERFACE SYSTEM EOSINOPHILS 1.1 0.0 - 7.0 % INTERFACE SYSTEM BASOPHILS 0.4 0.0 - 1.0 percent(in active) INTERFACE SYSTEM NEUTROPHIL ABSOLUTE 5.8 2.0 - 8.0 K/uL INTERFACE SYSTEM LYMPHOCYTE ABSOLUTE 3.4 1.2 - 4.0 K/ul INTERFACE SYSTEM MONOCYTE ABSOLUTE 0.7(H) 0.1 - 0.6 K/ul INTERFACE SYSTEM EOSINOPHIL ABSOLUTE 0.1 0.0 - 0.7 K/ul INTERFACE SYSTEM BASOPHILS ABSOLUTE 0.0 0.0 - 0.2 K/ul INTERFACE SYSTEM 10/02/2004 9:05 PM URGENT CARE TECHNICIAN us Keith Stringer MD HEMATOLOGY ORDERABLES Final Res ult INTERFACE SYSTEM Refer to clinic/hospital department * COMPREHENSIVE METABOLIC PANEL (10/02/2004 9:05 PM URGENT CARE TECHNICIAN) Pathologist [facility] GLUCOSE 90 70 - 110 mg/dL INTERFACE SYSTEM BUN 15 7 - 17 mg/dL INTERFACE SYSTEM CREATININE 0.9 0.7 - 1.2 mg/dL (inactive) INTERFACE SYSTEM SODIUM 143 136 - 145 mEq/L INTERFACE SYSTEM POTASSIUM 3.8 3.5 - 5.0 mEq/L INTERFACE SYSTEM CO2 29 22 - 32 mmol/l INTERFACE SYSTEM CHLORIDE 106 95 - 110 mEq/L INTERFACE SYSTEM CALCIUM 8.8 8.4 - 10.5 mg/dL INTERFACE SYSTEM ALKALINE PHOSPHATASE 79 38 - 126 IU/L INTERFACE SYSTEM TOTAL PROTEIN 7.5 6.3 - 8.2 g/dL INTERFACE SYSTEM ALBUMIN 4.2 3.5 - 5.0 g/dL INTERFACE SYSTEM AST 27 14 - 36 IU/L INTERFACE SYSTEM ALT 31 9 - 52 IU/L INTERFACE SYSTEM BILIRUBIN TOTAL 0.2 0.2 - 1.4 mg/dL INTERFACE SYSTEM GLOBULIN (CALC) 3.3 2.4 - 3.9 g/dL INTERFACE SYSTEM ANION GAP 12 9 - 20 mEq/L INTERFACE SYSTEM ALBUMIN/GLOBULIN RATIO 1.3 1.0 - 2.3 INTERFACE SYSTEM OSMOLALITY, CALCULATED 293 275 - 295 mOsm/Kg INTERFACE SYSTEM 10/02/2004 9:05 PM URGENT CARE TECHNICIAN Keith Stringer MD CHEMISTRY ORDERABLES Final Resu Performing Organization Address [facility] Phone Number INTERFACE SYSTEM Refer to clinic/hospital department * LIPASE (10/02/2004 9:05 PM URGENT CARE TECHNICIAN) LIPASE 75 23 - 300 IU/L INTERFACE SYSTEM 10/02/2004 9:05 PM URGENT CARE TECHNICIAN Keith Stringer MD CHEMISTRY ORDERABLES Final Resu lt Performing Organization Address [facility] Phone Number INTERFACE SYSTEM Refer to clinic/hospital department * AMYLASE (10/02/2004 9:05 PM URGENT CARE TECHNICIAN) AMYLASE 65 30 - 120 IU/L INTERFACE SYSTEM 10/02/2004 9:05 PM URGENT CARE TECHNICIAN us Keith Stringer MD CHEMISTRY ORDERABLES Final Resu lt Performing Organization Address [facility] Phone Number INTERFACE SYSTEM Refer to clinic/hospital department * (ABNORMAL) URINALYSIS (10/02/2004 8:43 PM URGENT CARE TECHNICIAN) COLOR UA Yellow Straw INTERFACE SYSTEM CLARITY UA SL CLOUDY Clear INTERFACE SYSTEM LEUKOCYTE ESTERASE UA NEGATIVE NEGATIVE INTERFACE SYSTEM NITRITE UA NEGATIVE NEGATIVE INTERFACE SYSTEM PH UA 7.5 5.0 - 9.0 INTERFACE SYSTEM PROTEIN UA NEGATIVE NEGATIVE INTERFACE SYSTEM GLUCOSE UA NEGATIVE NEGATIVE INTERFACE SYSTEM KETONES UA NEGATIVE NEGATIVE INTERFACE SYSTEM UROBILINOGEN UA 0.2 INTE RFACE SYSTEM BILIRUBIN UA NEGATIVE NEGATIVE INTERFA CE SYSTEM BLOOD UA NEGATIVE NEGATIVE INTERFACE SYSTEM SPECIFIC GRAVITY UA 1.015 1.005 - 1.030 INTERFACE SYSTEM MICRO EXAM Yes(A) No INTERFACE SYSTEM 10/02/2004 8:43 PM URGENT CARE TECHNICIAN us Keith Stringer MD URINE ORDERABLES Final Result Performing Organization Address [facility] de Phone Number INTERFACE SYSTEM Refer to clinic/hospital department * (ABNORMAL) URINALYSIS MICROSCOPY ONLY (10/02/2004 8:43 PM URGENT CARE TECHNICIAN) WBC URINE 0-2 0 - 2 INTERFACE SYSTEM RBC UA None Seen 0 - 2 INTERFACE SYSTEM HYALINE CAST None Seen 0 - 2 INTERFA CE SYSTEM BACTERIA UA Small(A) None Seen INTERFAC E SYSTEM 10/02/2004 8:43 PM URGENT CARE TECHNICIAN us Keith Stringer MD URINE ORDERABLES Final Result Performing Organization Address [facility] Co de Phone Number INTERFACE SYSTEM Refer to clinic/hospital department documented in this encounter Visit Diagnoses Diagnosis Abdominal pain, unspecified site- Primary documented in this encounter Care Teams Behavioral Intervention Specialist Relationship Specialty Start Date End Date Maria Luisa Juarez FNP PCP - General NURSE PRACTITIONER 10/02/17 documented as of this encounter
--- OUTSIDE RECORDS SUMMARY | 2025-05-04 12:12 | XMS_ITS | Encounter Summary ---
Author Organization [facility] Address [address] [place] [address] Care Team Providers Care Resp Ther Name Role Phone Maria Luisa Juarez Primary Care Provider [phone] Encounter Details Date Type Department Care Team (Late st Contact Info) Description 03/06/2007 Emergency [facility] Emergency Department [address] [place] [id number] Jayce Vega, NO ADDRESS ON FILE Other Dental Caries (Primary Dx) Social History Tobacco Use Types Packs/Day Years Used Date Smoking Tobacco: Never Assessed Comments Unknown Sex and Gender Information Value Date Recorded Sex Assigned at Not on file 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
--- OUTSIDE RECORDS SUMMARY | 2025-05-04 12:12 | XMS_ITS | Encounter Summary ---
Author Organization [facility] Address [address] [place] [address] Care Team Providers Care Sandwich Machine Operator Name Role Phone Maria Luisa Juarez BUSINESS SYSTEMS TECHNICIAN Primary Care Provider [phone] Encounter Details Date Type Department Care Team (Late st Contact Info) Description 08/10/2006 Emergency [facility] Emergency Department [address] [place] [address] Balwinder Velarde MD NO ADDRESS ON FILE Urinary Tract Infection, Site not Specified (Primary Dx) Social History Tobacco Use Types Packs/Day Years Used Date Smoking Tobacco: Never Assessed Comments Unknown Sex and Gender Information Value Date Recorded Sex Assigned at Not on file Legal Sex Female 6:18 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 ENGINEER Gender Identity Not on file Sexual Orientation Not on file documented as of this encounter Plan of Treatment Not on file documented as of this encounter Procedures Procedure Name Priority Date/Time Associated Diagnosis Comments URINALYSIS MICROSCOPY ONLY Routine 08/10/2006 3:10 AM BRIDGE ENGINEER CBC WITH DIFFERENTIAL Routine 08/10/2006 3:10 AM BRIDGE ENGINEER URINALYSIS W/REFLEX MICROSCOPIC Routine 08/10/2006 3:10 AM BRIDGE ENGINEER HCG QUANTITATIVE, BLOOD Routine 08/10/2006 3:10 AM BRIDGE ENGINEER COMPREHENSIVE METABOLIC PANEL Routine 08/10/2006 3:10 AM BRIDGE ENGINEER documented in this encounter Results * (ABNORMAL) URINALYSIS MICROSCOPY ONLY (08/10/2006 3:10 AM BRIDGE ENGINEER) WBC URINE 16-25(A) 0 - 2 INTERFACE SYSTEM RBC UA 6-10(A) 0 - 2 INTERFACE SYSTEM HYALINE CAST None Seen 0 - 2 INTERFA CE SYSTEM BACTERIA UA Moderate(A ) None Seen INTERFACE SYSTEM 08/10/2006 3:10 AM BRIDGE ENGINEER us Balwinder Velarde MD URINE ORDERABLES Final Result Performing Organization Address [facility] Phone Number INTERFACE SYSTEM Refer to clinic/hospital department * (ABNORMAL) URINALYSIS (08/10/2006 3:10 AM BRIDGE ENGINEER) COLOR UA Yellow Straw INTERFACE SYSTEM CLARITY UA SL CLOUDY Clear INTERFACE SYSTEM LEUKOCYTE ESTERASE UA Small(A) NEGATIVE INTERFACE SYSTEM NITRITE UA POSITIVE(A) NEGATIVE INTERFA CE SYSTEM PH UA 6.0 5.0 - 9.0 INTERFACE SYSTEM PROTEIN UA Trace(A) NEGATIVE INTERFACE SYSTEM Comment: As of 05 positive protein results obtained on routine urinalysis will not be confirmed by sulfosalicylic acid (SSA) precipitation. Current methodology for protein detection is highly sensitive for detection of albumin; therefore, confirmation is not necessary. GLUCOSE UA NEGATIVE NEGATIVE INTERFACE SYSTEM KETONES UA NEGATIVE NEGATIVE INTERFACE SYSTEM UROBILINOGEN UA 0.2 0.2 INTE RFACE SYSTEM BILIRUBIN UA NEGATIVE NEGATIVE INTERFA CE SYSTEM BLOOD UA MODERATE(A) NEGATIVE INTERFAC E SYSTEM SPECIFIC GRAVITY UA >=1.030(A) 1.005 - 1.030 INTERFACE SYSTEM MICRO EXAM Yes(A) No INTERFACE SYSTEM 08/10/2006 3:10 AM BRIDGE ENGINEER us Balwinder Velarde MD URINE ORDERABLES Final Result Performing Organization Address [facility] Phone Number INTERFACE SYSTEM Refer to clinic/hospital department * HCG QUANTITATIVE, BLOOD (08/10/2006 3:10 AM BRIDGE ENGINEER) CHORIONIC GONADOTROPIN, TOTAL <2.0 0.0 - 10.0 mlU/ML INTERFACE SYSTEM Comment: As of 05 at 12:[address] [facility] has changed the methodology for ThCG, and with this change the reference range has changed from 0-5.0 mIU/ml to 0-10.0 mIU/ml. ----- ----- Total HCG levels between 10 mIU/mL and 25 mIU/mL may be indicative of early but need to be correlated with other clinical findings. HCG ranges during normal , as reported by the sales associate key holder, are summarized as follows: Gestational Age Expected hCG Values(mIU/ml) 0.2-1 Weeks 5 - 50 1-2 Weeks 50 - 500 2-3 Weeks 100 - 5,000 3-4 Weeks 1,000 - 50,000 5-6 Weeks 10,000 - 100,000 6-8 Weeks 15,000 - 200,000 2-3 Months 10,000 - 100,000 08/10/2006 3:10 AM BRIDGE ENGINEER us Balwinder Velarde MD CHEMISTRY ORDERABLES Final Resu lt INTERFACE SYSTEM Refer to clinic/hospital department * (ABNORMAL) COMPREHENSIVE METABOLIC PANEL (08/10/2006 3:10 AM BRIDGE ENGINEER) GLUCOSE 96 70 - 110 mg/dL INTERFACE SYSTEM BUN 18(H) 7 - 17 mg/dL INTERFACE SYSTEM CREATININE 0.8 0.7 - 1.2 mg/dL INTERFACE SYSTEM SODIUM 141 136 - 145 mEq/L INTERFACE SYSTEM POTASSIUM 4.3 3.5 - 5.0 mEq/L INTERFACE SYSTEM CHLORIDE 111(H) 95 - 110 mEq/L INTERFACE SYSTEM CO2 25 22 - 32 mmol/l INTERFACE SYSTEM ANION GAP 9 9 - 20 mEq/L INTERFACE SYSTEM OSMOLALITY, CALCULATED 292 275 - 295 mOsm/Kg INTERFACE SYSTEM CALCIUM 9.1 8.4 - 10.5 mg/dL INTERFACE SYSTEM TOTAL PROTEIN 6.7 6.3 - 8.2 g/dL INTERFACE SYSTEM ALBUMIN 3.9 3.5 - 5.0 g/dL INTERFACE SYSTEM GLOBULIN (CALC) 2.8 2.4 - 3.9 g/dL INTERFACE SYSTEM ALBUMIN/GLOBULIN RATIO 1.4 1.0 - 2.3 INTERFACE SYSTEM ALKALINE PHOSPHATASE 94 25 - 100 U/L INTERFACE SYSTEM Comment: As of 05 the [facility] has changed testing methods. The new reference range is 25-100 The old referance range was 38-126 AST 15 8 - 33 U/L INTERFACE SYSTEM Comment: As of 05 the [facility] has changed testing methods. The new reference range is 8-33 The old referance range was Males 17-59 Females 14-36 ALT 13 4 - 36 IU/L INTERFACE SYSTEM Comment: As of 05 the [facility] has changed testing methods. The new reference range is 4-36 The old referance range was Males 21-72 Females 9-52 BILIRUBIN TOTAL 0.2(L) 0.3 - 1.2 mg/dL INTERFACE SYSTEM Comment: As of 05 the [facility] has changed testing methods. The new reference range is 0.3-1.2 The old referance range was 0.2-1.4 08/10/2006 3:10 AM BRIDGE ENGINEER us Balwinder Velarde MD CHEMISTRY ORDERABLES Final Resu lt INTERFACE SYSTEM Refer to clinic/hospital department * (ABNORMAL) CBC WITH DIFFERENTIAL (08/10/2006 3:10 AM BRIDGE ENGINEER) WBC 9.1 4.5 - 11.0 K/ul INTERFACE SYSTEM RBC 4.71 4.20 - 5.40 Mil/ul INTERFACE SYSTEM HEMOGLOBIN 14.3 12.0 - 16.0 g/dL INTERFACE SYSTEM HEMATOCRIT 43.3 36.0 - 46.0 % INTERFACE SYSTEM MCV 91.9 84.0 - 103.0 Fl INTERFACE SYSTEM MCH 30.4 27.0 - 34.0 pg INTERFACE SYSTEM MCHC 33.0 30.0 - 35.0 g/dL INTERFACE SYSTEM RDW 13.0 11.0 - 14.5 % INTERFACE SYSTEM PLATELETS 309 140 - 440 K/ul INTERFACE SYSTEM MPV 9.8 8.9 - 12.8 Fl INTERFACE SYSTEM NEUTROPHILS 46.0 42.2 - 75.2 % INTERFACE SYSTEM LYMPHOCYTES 44.6(H) 24.0 - 44.0 % INTERFACE SYSTEM MONOCYTES 7.6 2.0 - 10.0 % INTERFA CE SYSTEM EOSINOPHILS 1.5 0.0 - 7.0 % INTERF CLAYTON SYSTEM BASOPHILS 0.3 0.0 - 1.0 % INTERFAC E SYSTEM NEUTROPHIL ABSOLUTE 4.2 2.0 - 8.0 K/uL INTERFACE SYSTEM LYMPHOCYTE ABSOLUTE 4.1(H) 1.2 - 4.0 K/ul INTERFACE SYSTEM MONOCYTE ABSOLUTE 0.7(H) 0.1 - 0.6 K/ul INTERFACE SYSTEM EOSINOPHIL ABSOLUTE 0.1 0.0 - 0.7 K/ul INTERFACE SYSTEM BASOPHILS ABSOLUTE 0.0 0.0 - 0.2 K/ul INTERFACE SYSTEM PERIPHERAL BLOOD SMEAR REVIEW Automated Diff Automated Diff INTERFACE SYSTEM 08/10/2006 3:10 AM BRIDGE ENGINEER us Balwinder Velarde MD HEMATOLOGY ORDERABLES Final Res ult INTERFACE SYSTEM Refer to clinic/hospital department documented in this encounter Visit Diagnoses Diagnosis Urinary tract infection, site not specified- Primary documented in this encounter Care Teams Sandwich Machine Operator Relationship Specialty Start Date End Date Maria Luisa Juarez FNP PCP - General NURSE PRACTITIONER 10/02/17 documented as of this encounter
--- OUTSIDE RECORDS SUMMARY | 2025-05-04 12:12 | XMS_ITS | Encounter Summary ---
Author Organization [facility] Address [address] [place] [address] Care Team Providers Care Geospatial Analyst Name Role Phone Maria Luisa Juarez Primary Care Provider [phone] Encounter Details Date Type Department Care Team (Late st Contact Info) Description 06/18/2006 Emergency [facility] Emergency Department [address] [place] [phone] Lacie Philip, LINES TENDER NO ADDRESS ON FILE Other chronic pain (Primary Dx) Social History Tobacco Use Types Packs/Day Years Used Date Smoking Tobacco: Never Assessed Comments Unknown Sex and Gender Information Value Date Recorded Sex Assigned at Not on file Legal Sex Female 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
--- OUTSIDE RECORDS SUMMARY | 2025-05-04 12:12 | XMS_ITS | Encounter Summary ---
Author Organization [facility] Address [address] [place] [address] Care Team Providers Care Weigh Machine Operator Name Role Phone Maria Luisa Juarez Primary Care Provider [phone] Encounter Details Date Type Department Care Team (Latest Contact Info) Description 03/11/2007 Outpatient Historical [facility] [place]- [place] [address] [place] [phone] Sp Franco MD [address] [facility] [address] [place] [address] Lumbago (Primary Dx); Unspecified Disorder of the Teeth and Supporting Structures Social History Tobacco Use Types Packs/Day Years Used Date Smoking Tobacco: Never Assessed Comments Unknown Sex and Gender Information Value Date Recorded Sex Assigned at Not on file Legal Sex Female 6:18 AM EXTRUDING PRESS 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
--- OUTSIDE RECORDS SUMMARY | 2025-05-04 12:12 | XMS_ITS | Encounter Summary ---
Author Organization [facility] Address [address] [place] [address] Care Team Providers Care Driver'S License Examiner Name Role Phone Maria Luisa Juarez Primary Care Provider [phone] Encounter Details Date Type Department Care Team (Latest Contact Info) Description 06/24/2006 Outpatient Historical [facility]- [place] [address] [place] [phone] Sp Franco MD [address] [facility] [address] [place] [address] Unspecified Myalgia and Myositis (Primary Dx); Unspecified Anemia; Carpal Tunnel Syndrome Social History Tobacco Use Types Packs/Day Years Used Date Smoking Tobacco: Never Assessed Comments Unknown Sex and Gender Information Value Date Recorded Sex Assigned at Not on file Legal Sex Female 6:18 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
--- OUTSIDE RECORDS SUMMARY | 2025-05-04 12:12 | XMS_ITS | Encounter Summary ---
Author Organization [facility] Address [address] [place] [address] Care Team Providers Care Crab Catcher Name Role Phone Maria Luisa Juarez LOCK ASSEMBLER Primary Care Provider [phone] Encounter Details Date Type Department Care Team (Late st Contact Info) Description 06/12/2008 Emergency [facility] Emergency Department [address] [place] [address] Ed, Physician NO ADDRESS ON FILE Lacie Philip NP NO ADDRESS ON FILE Unspecified Dental Caries; Unspecified Myalgia and Myositis; Degeneration of Lumbar or Lumbosacral Intervertebral Disc; Lumbosacral Spondylosis without Myelopathy; Tobacco Use Disorder; Personal History of Allergy to Analgesic Agent; Encounter for Long-Term (Current) Use of Other Medications Social History Tobacco Use Types Packs/Day Years Used Date Smoking Tobacco: Never Assessed Comments Unknown Sex and Gender Information Value Date Recorded Sex Assigned at Not on file 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 Findings: Comparison study is dated 10/06/2007. There is straightening of the lumbar lordosis. The vertebral body heights are maintained without evidence of fracture. There is grade 2 to grade 3 spondylolisthesis of L5 on S1. This appears grossly stable when compared to the prior study. This may be secondary to bilateral pars defects at L5. The pedicles appear intact. There are no paraspinal soft tissue abnormalities. The sacroiliac joints appear to be within normal limits. Summary: 1. No definite fracture. 2. Stable grade 2 to grade 3 anterolisthesis of L5 on S1. This may be secondary to pars defect at L5. There is significant disc disease at L5-S1. - Dictated By: Miguel Mary Jr., M.D. Electronically Signed By: Miguel Mary Jr., M.D. Date Signed: 06/13/08 Procedure Note Miguel Mary Jr. - 06/13/2008 Exam: Spine - Lumbar Date/Time of Exam: Jun 12, 2008 3:36:48 PM History: Low back pain. Findings: Comparison study is dated 10/06/2007. There is straightening of the lumbar lordosis. The vertebral body heightsare maintained without evidence of fracture. There is grade 2 to grade 3 spondylolisthesis of L5 on S1.This appears grossly stable when compared to the prior study. This may be secondary to bilateral parsdefects at L5. The pedicles appear intact. There are no paraspinal soft tissue abnormalities. The sacroiliacjoints appear to be within normal limits. Summary: 1. No definite fracture. 2. Stable grade 2 to grade 3 anterolisthesis of L5 on S1. This may besecondary to pars defect at L5. There is significant disc disease at L5-S1. - Dictated By: Miguel Mary Jr., M.D. Electronically Signed By: Miguel Mary Jr., M.D. Date Signed: 06/13/08 Lacie Philip JOB ORDER CLERK DIAGNOSTIC IMAGING ORDERABLE S Final Result documented in this encounter Visit Diagnoses Diagnosis Unspecified dental caries Myalgia and myositis, unspecified Mylagia and myositis, unspecified Degeneration of lumbar or lumbosacral intervertebral disc Lumbosacral spondylosis without myelopathy Tobacco use disorder Personal history of allergy to analgesic agent Encounter for long-term (current) use of other medications documented in this encounter Care Teams Crab Catcher Relationship Specialty Start Date End Date Maria Luisa Juarez FNP PCP - General NURSE PRACTITIONER 10/02/17 documented as of this encounter
--- OUTSIDE RECORDS SUMMARY | 2025-05-04 12:12 | XMS_ITS | Encounter Summary ---
Author Organization [facility] Address [address] [place] [address] Care Team Providers Care Manager Endoscopy Name Role Phone Maria Luisa Juarez Primary Care Provider Encounter Details Date Type Department Care Team (Latest Contact Info) Description 11/02/2006 Outpatient Historical [facility] Medicine- [place] [address] [place] [phone] Sp Franco MD [address] [facility] 2 [place] [address] Unspecified Backache (Primary Dx); Lumbosacral Spondylosis; Dysuria Social History Tobacco Use Types Packs/Day Years Used Date Smoking Tobacco: Never Assessed Comments Unknown Sex and Gender Information Value Date Recorded Sex Assigned at Not on file 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
--- OUTSIDE RECORDS SUMMARY | 2025-05-04 12:12 | XMS_ITS | Encounter Summary ---
Author Organization [facility] Address [address] [place] [address] Care Team Providers Care Network Support Analyst Name Role Phone Maria Luisa Juarez Primary Care Provider [phone] Encounter Details Date Type Department Care Team (Latest Contact Info) Description 04/08/2007 Outpatient Historical [facility] [place] [address] [place] [phone] Sp Franco MD [address] [facility] [address] [place] [address] Unspecified Myalgia and Myositis (Primary Dx); Other Specified Menopausal and Postmenopausal Disorder Social History Tobacco Use Types Packs/Day Years Used Date Smoking Tobacco: Never Assessed Comments Unknown Sex and Gender Information Value Date Recorded Sex Assigned at Not on file 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
--- OUTSIDE RECORDS SUMMARY | 2025-05-04 12:12 | XMS_ITS | Encounter Summary ---
Author Organization [facility] Address [address] [place] [address] Care Team Providers Care Yoga Teacher Name Role Phone Maria Luisa Juarez Primary Care Provider [phone] Encounter Details Date Type Department Care Team (Latest Contact Info) Description 02/18/2007 Outpatient Historical [facility]- [place] [address] [place] [phone] Sp Franco MD [address] [facility] [address] [place] [address] Unspecified Disorder of the Teeth and Supporting Structures (Primary Dx) Social History Tobacco Use Types Packs/Day Years Used Date Smoking Tobacco: Never Assessed Comments Unknown Sex and Gender Information Value Date Recorded Sex Assigned at Not on file Legal Sex Female 6:18 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
--- OUTSIDE RECORDS SUMMARY | 2025-05-04 12:12 | XMS_ITS | Encounter Summary ---
Author Organization [facility] Address [address] [place] [address] Care Team Providers Care Wine And Spirits Clerk Name Role Phone Maria Luisa Juarez Primary Care Provider [phone] Encounter Details Date Type Department Care Team (Latest Contact Info) Description 05/11/2007 Outpatient Historical [facility] [place] [address] [place] [phone] Sp Franco MD [address] [facility] 2 [place] [address] Unspecified Myalgia and Myositis (Primary Dx); Spondylosis of Unspecified Site without Mention of Myelopathy Social History Tobacco Use Types Packs/Day Years Used Date Smoking Tobacco: Never Assessed Comments Unknown Sex and Gender Information Value Date Recorded Sex Assigned at Not on file Legal Sex Female 6:18 AM TRANSFER AGENT Gender Identity Not on file Sexual Orientation Not on file documented as of this encounter Plan of Treatment Not on file documented as of this encounter Visit Diagnoses Diagnosis Myalgia and myositis, unspecified- Primary Mylagia and myositis, unspecified Spondylosis of unspecified site without mention of myelopathy documented in this encounter Care Teams Wine And Spirits Clerk Relationship Specialty Start Date End Date Maria Luisa Juarez FNP PCP - General NURSE PRACTITIONER 10/02/17 documented as of this encounter
--- OUTSIDE RECORDS SUMMARY | 2025-05-04 12:12 | XMS_ITS | Encounter Summary ---
Author Organization [facility] Address [address] [place] [address] Care Team Providers Care Academic Affairs Manager Name Role Phone Maria Luisa Juarez Primary Care Provider [phone] Encounter Details Date Type Department Care Team (Latest Contact Info) Description 06/15/2007 Outpatient Historical [facility] Medicine- [place] [address] [place] [address] Sp Franco MD [address] [facility] [address] [place] [address] Abdominal Pain, Epigastric (Primary Dx); Unspecified Constipation; Bipolar I Disorder, Most Recent Episode (or Current) Unspecified (CMS/HCC) Social History Tobacco Use Types Packs/Day Years Used Date Smoking Tobacco: Never Assessed Comments Unknown Sex and Gender Information Value Date Recorded Sex Assigned at Not on file 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
--- OUTSIDE RECORDS SUMMARY | 2025-05-04 12:12 | XMS_ITS | Encounter Summary ---
Author Organization [facility] Address [address] [place] [address] Care Team Providers Care Toll Transmission Worker Name Role Phone Maria Luisa Juarez Primary Care Provider [phone] Encounter Details Date Type Department Care Team (Late st Contact Info) Description 04/23/2007 Emergency [facility] Emergency Department [address] 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
--- OUTSIDE RECORDS SUMMARY | 2025-05-04 12:12 | XMS_ITS | Encounter Summary ---
Author Organization [facility] Address [address] [place] [address] Care Team Providers Care Ordnance Truck Installation Mechanic Name Role Phone Maria Luisa Juarez Primary Care Provider [phone] Encounter Details Date Type Department Care Team (Late st Contact Info) Description 08/16/2006 Emergency [facility] Emergency Department [address] [place] [phone] Nash Yoo MD [address] [place], [place] [id number] Unspecified Backache (Primary Dx) Social History Tobacco Use Types Packs/Day Years Used Date Smoking Tobacco: Never Assessed Comments Unknown Sex and Gender Information Value Date Recorded Sex Assigned at Not on file 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
--- OUTSIDE RECORDS SUMMARY | 2025-05-04 12:12 | XMS_ITS | Encounter Summary ---
Author Organization [facility] Address [address] [place] [address] Care Team Providers Care Quantitative Strategy Analyst Name Role Phone Maria Luisa Juarez Primary Care Provider [phone] Encounter Details Date Type Department Care Team (Latest Contact Info) Description 09/15/2006 Outpatient Historical [facility] [address] [place] [phone] Sp Franco MD [address] [facility] [address] [place] [address] Unspecified Backache (Primary Dx); Carpal Tunnel Syndrome; Unspecified Myalgia and Myositis Social History Tobacco Use Types Packs/Day Years Used Date Smoking Tobacco: Never Assessed Comments Unknown Sex and Gender Information Value Date Recorded Sex Assigned at Not on file 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
--- OUTSIDE RECORDS SUMMARY | 2025-05-04 12:12 | XMS_ITS | Encounter Summary ---
Author Organization [facility] Address [address] [place] [address] Care Team Providers Care Negotiator Sales Name Role Phone Maria Luisa Juarez Primary Care Provider [phone] Encounter Details Date Type Department Care Team (Latest Contact Info) Description 02/02/2007 Outpatient Historical [facility] [place]- [place] [address] [place] [phone] Sp Franco MD [address] [facility] [address] [place] [address] Lumbago (Primary Dx) Social History Tobacco Use Types Packs/Day Years Used Date Smoking Tobacco: Never Assessed Comments Unknown Sex and Gender Information Value Date Recorded Sex Assigned at Not on file Legal Sex Female 6:18 AM 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
--- OUTSIDE RECORDS SUMMARY | 2025-05-04 12:12 | XMS_ITS | Encounter Summary ---
Author Organization [facility] Address [address] [place] [address] Care Team Providers Care Carton Maker Name Role Phone Maria Luisa Juarez Primary Care Provider [phone] Encounter Details Date Type Department Care Team (Latest Contact Info) Description 12/10/2006 Outpatient Historical [facility] Medicine- [address] [phone] Sp Franco MD [address] [facility] [address] [place] [address] Unspecified Backache (Primary Dx); Unspecified Myalgia and Myositis; Unspecified Hypertrophic and Atrophic Condition of Skin; Periapical Abscess Social History Tobacco Use Types Packs/Day Years Used Date Smoking Tobacco: Never Assessed Comments Unknown Sex and Gender Information Value Date Recorded Sex Assigned at Not on file 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 Female 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
--- OUTSIDE RECORDS SUMMARY | 2025-05-04 12:12 | XMS_ITS | Encounter Summary ---
Author Organization [facility] Address [address] [place] [address] Care Team Providers Care Oil Well Services Superintendent Name Role Phone Maria Luisa Juarez Primary Care Provider [phone] Encounter Details Date Type Department Care Team (Late st Contact Info) Description 10/18/[address] 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
--- OUTSIDE RECORDS SUMMARY | 2025-05-04 12:12 | XMS_ITS | Encounter Summary ---
Author Organization [facility] Address [address] [place] [address] Care Team Providers Care Hood Maker Name Role Phone Maria Luisa Juarez Primary Care Provider [phone] Encounter Details Date Type Department Care Team (Late st Contact Info) Description 10/15/2002 Emergency [facility] Emergency Department [address] [place] [phone] [place] [id number] [place] [address] CONTUSION OF BUTTOCK (Primary Dx) Social History Tobacco Use Types Packs/Day Years Used Date Smoking Tobacco: Never Assessed Comments Unknown Sex and Gender Information Value Date Recorded Sex Assigned at Not on file Legal Sex Female 6:18 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
--- OUTSIDE RECORDS SUMMARY | 2025-05-04 12:12 | XMS_ITS | Encounter Summary ---
Author Organization [facility] Address [address] [place] [address] Care Team Providers Care Risk Control Product Liability Director Name Role Phone Maria Luisa Juarez Primary Care Provider [phone] Encounter Details Date Type Department Care Team (Late st Contact Info) Description 12/09/2006 Emergency [facility] Emergency Department [address] [place] [phone] Surinder Vasques MD NO ADDRESS ON FILE Lumbago (Primary Dx) Social History Tobacco Use Types Packs/Day Years Used Date Smoking Tobacco: Never Assessed Comments Unknown Sex and Gender Information Value Date Recorded Sex Assigned at Not on file 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
--- OUTSIDE RECORDS SUMMARY | 2025-05-04 12:12 | XMS_ITS | Encounter Summary ---
Author Organization [facility] Address [address] [place] [address] Care Team Providers Care Segment Assembler Name Role Phone Maria Luisa Juarez Primary Care Provider [phone] Encounter Details Date Type Department Care Team (Late st Contact Info) Description 08/04/2007 Emergency [facility] Emergency Department [address] [place] [phone] Ed, Physician NO ADDRESS ON FILE Lacie Philip NP NO ADDRESS ON FILE Social History Tobacco Use Types Packs/Day Years Used Date Smoking Tobacco: Never Assessed Comments Unknown Sex and Gender Information Value Date Recorded Sex Assigned at Not on file Legal Sex Female 6:18 AM IT CONSULTING DIRECTOR Gender Identity Not on file Sexual Orientation Not on file documented as of this encounter Plan of Treatment Not on file documented as of this encounter Visit Diagnoses Not on filedocumented in this encounter Care Teams Segment Assembler Relationship Specialty Start Date End Date Maria Luisa Juarez FNP PCP - General NURSE PRACTITIONER 10/02/17 documented as of this encounter
--- OUTSIDE RECORDS SUMMARY | 2025-05-04 12:12 | XMS_ITS | Encounter Summary ---
Author Organization [facility] Address [address] [place] [address] Care Team Providers Care Plastic Machine Operator Name Role Phone Maria Luisa Juarez Primary Care Provider [phone] Encounter Details Date Type Department Care Team (Latest Contact Info) Description 08/18/2006 Outpatient Historical [facility] [place] [address] [place] [phone] Sp Franco MD [address] [facility] [address] [place] [address] Lumbago (Primary Dx) Social History Tobacco Use Types Packs/Day Years Used Date Smoking Tobacco: Never Assessed Comments Unknown Sex and Gender Information Value Date Recorded Sex Assigned at Not on file 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
--- OUTSIDE RECORDS SUMMARY | 2025-05-04 12:12 | XMS_ITS | Encounter Summary ---
Author Organization [facility] Address [address] [place] [address] Care Team Providers Care Net Front End Developer Name Role Phone Maria Luisa Juarez Primary Care Provider [phone] Encounter Details Date Type Department Care Team (Late st Contact Info) Description 12/28/2002 Emergency [facility] Emergency Department [address] [place] [phone] Keith Stringer MD NO ADDRESS ON FILE ABDOMINAL PAIN UNSPEC SITE (Primary Dx) Social History Tobacco Use Types Packs/Day Years Used Date Smoking Tobacco: Never Assessed Comments Unknown Sex and Gender Information Value Date Recorded Sex Assigned at Not on file 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
--- OUTSIDE RECORDS SUMMARY | 2025-05-04 12:12 | XMS_ITS | Encounter Summary ---
Author Organization [facility] Address [address] [place] [address] Care Team Providers Care Credit Union Manager Name Role Phone Maria Luisa Juarez Primary Care Provider [phone] Encounter Details Date Type Department Care Team (Latest Contact Info) Description 07/27/2007 Outpatient Historical [facility] Medicine- [place] [address] [place] [phone] Sp Franco MD [address] [facility] [address] [place] [address] Lumbago (Primary Dx); Spondylosis of Unspecified Site without Mention of Myelopathy Social History Tobacco Use Types Packs/Day Years Used Date Smoking Tobacco: Never Assessed Comments Unknown Sex and Gender Information Value Date Recorded Sex Assigned at Not on file 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
[2025-05-04 12:17] VITALS: BP 149/103; O2SAT 98
[2025-05-04] MEDS: HYDROcodone-acetaminophen 10-325 mg Tablet 1 TAB PO (13:55)
--- NOTE | 2025-05-04 13:55 | PC.NURSE ---
PT refusing to have BP taken
[2025-05-04 14:25] LABS: Hematocrit 38.1 % (36-47); Hemoglobin 12.80 g/dL (11.27-16.99); Mean Corpuscular HGB Conc 33.6 g/dL (30-55); Mean Corpuscular Hemoglobin 36.7 pg (27-33); Mean Corpuscular Volume 109.2 fl (85-98); Nucleated Red Blood Cells % 0 %; Platelet Count 200 10^3/cmm (157-399); Red Blood Count 3.49 10^6/uL (3.85-5.65); White Blood Count 2.41 10^3/uL (3.29-11.43)
[2025-05-04 14:36] LABS: Alanine Aminotransferase 6 U/L (0-33); Albumin Level 3.7 g/dL (3.5-5.2); Alkaline Phosphatase 122 U/L (35-105); Anion Gap 14.3 (5-19); Aspartate Amino Transferase 10 U/L (0-32); Blood Urea Nitrogen 10 mg/dL (6-20); Calcium 9.5 mg/dL (8.5-10.5); Carbon Dioxide 26 mmol/L (22-29); Chloride 102 mmol/L (98-107); Globulin 3.3 g/dL (1.3-4.6); Glucose 96 mg/dL (65-115); Osmolality Calculated 285 mOsm/kg (285-295); Potassium 4.3 mmol/L (3.5-5.1); Sodium 138 mmol/L (136-145); Total Protein 7.0 g/dL (6.6-8.7)
--- NOTE | 2025-05-04 14:37 | PC.NURSE ---
PT refusing vitals. PT sitting on side of bed eating food brought by family when this nurse entered room
[2025-05-04 14:52] LABS: Slide Review Slide Review Perform
== END 2025-05-04 15:08 | disposition home or self-care (01) ==
PROVIDERS: Emergency Provider Emergency Medicine; PCP Family Medicine
DX: H66.91 Otitis media, unspecified, right ear (principal); C50.911 Malignant neoplasm of unspecified site of right female breast; J44.9 Chronic obstructive pulmonary disease, unspecified; Z72.0 Tobacco use
CPT/HCPCS: 36415; 70450; 80053; 85025; 99283; J9999

== ENCOUNTER 2025-05-19 10:28 | Outpatient (CLI) | payer MEDICAID, SELFPAY ==
--- NOTE | 2025-05-19 10:37 | PETR_ITS ---
PROCEDURE INFORMATION: Exam: PET/CT Skull Base to Mid-thigh Exam date and time: 05/19/2025 11:54 AM Age: 55 years old Clinical indication: Condition or disease; Condition/disease: Stage 4 breast cancer; Metastatic breast CA; Additional info: Breast cancer metastatic to bone LABS AND CLINICAL REPORTS: Glucose: 97 mg/dl Treatment strategy for malignancy (PET staging): Restaging (PS) TECHNIQUE: Imaging protocol: Following at least four-hour fasting and following the injection of radiopharmaceutical, low dose CT images were obtained. Then, PET images were obtained. Attenuation corrected images were constructed using the CT scan. Fused images of PET and CT were reviewed. The standardized uptake values (SUV) reported below are maximum values within a region of interest, expressed in gm/ml. Exam includes orbital meatal line to mid-thigh. SUV normalization method: BodyWeight Radiopharmaceutical: 10.86 mCi F-18 FDG (Fluorodeoxyglucose), IV. Time of imaging post radiopharmaceutical administration: 53 minutes Injection site: RAC COMPARISON: PT PET skull to thigh INIT [id number] 09/02/2024 11:41 AM FINDINGS: Brain: Visualized brain has normal physiologic uptake. Pharynx: No abnormal uptake. Larynx: Symmetric uptake without underlying CT abnormality is likely benign activation. Lungs, pleura and trachea: No abnormal uptake. Left lower lobe calcified granuloma. Heart: Normal physiologic uptake. Mediastinal space: No abnormal uptake. Liver: No abnormal uptake. Gallbladder and biliary ducts: No abnormal uptake. Pancreas: No abnormal uptake. Spleen: No abnormal uptake. Calcified granulomata. Adrenal glands: No abnormal uptake. Kidneys and ureters: Normal physiologic uptake. Stomach and bowel: No abnormal uptake. Colonic diverticulosis without findings of diverticulitis. Vasculature: No abnormal uptake. Lymph nodes: No abnormal uptake. No lymphadenopathy in the head, neck, chest, abdomen, pelvis, and extremities. Calcified mediastinal and left hilar nodes in keeping with sequela of old granulomatous disease. Skeleton: Significantly improved osseous metastases with substantially decreased FDG uptake and increased sclerosis with multiple residual sites of disease involving the spine, sacrum and rightward pelvis, index lesion at left T8 pedicle showing SUV max 7.9 on axial image 95. Uptake at bilateral shoulders and rhfxo-[id number]-left hips favored to be degenerative although some degree of residual metastatic disease difficult to entirely exclude. Degenerative change along the axial and proximal appendicular skeletal system. Posterosuperior right acetabular fixation screw. 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 Soft tissues: Decreased right breast FDG uptake with portion of the right breast outside the field of view on CT with included portion showing grossly similar nodularity measuring approximately 1.9 cm on axial image 87 with SUV max 2.3, previously 3.4. METRICS: Mediastinal blood pool: SUV mean 2.0 Liver uptake: SUV mean 2.3 PET/PET skull to thigh SUBS [id number] IMPRESSION: 1. Good partial treatment response with decreased uptake at right breast (partially imaged on CT with grossly similar nodularity on imaged portion), resolved FDG avid right axillary node, significantly improved osseous metastatic disease, and resolved FDG avid liver lesions. 2. Additional chronic and incidental findings as above.
[2025-05-19 14:27] LABS: Hematocrit 40.8 % (36-47); Hemoglobin 14.10 g/dL (11.27-16.99); Mean Corpuscular HGB Conc 34.6 g/dL (30-55); Mean Corpuscular Hemoglobin 37.7 pg (27-33); Mean Corpuscular Volume 109.1 fl (85-98); Nucleated Red Blood Cells % 0 %; Platelet Count 280 10^3/cmm (157-399); Red Blood Count 3.74 10^6/uL (3.85-5.65); White Blood Count 4.64 10^3/uL (3.29-11.43)
[2025-05-19 14:54] LABS: Alanine Aminotransferase 9 U/L (0-33); Albumin Level 3.9 g/dL (3.5-5.2); Alkaline Phosphatase 119 U/L (35-105); Anion Gap 13.9 (5-19); Aspartate Amino Transferase 15 U/L (0-32); Blood Urea Nitrogen 8 mg/dL (6-20); CA 15-3 30.4 U/mL (0-25); Calcium 9.7 mg/dL (8.5-10.5); Carbon Dioxide 29 mmol/L (22-29); Chloride 100 mmol/L (98-107); Globulin 3.3 g/dL (1.3-4.6); Glucose 128 mg/dL (65-115); Osmolality Calculated 288 mOsm/kg (285-295); Potassium 3.9 mmol/L (3.5-5.1); Sodium 139 mmol/L (136-145); Total Protein 7.2 g/dL (6.6-8.7)
== END 2025-05-19 10:29 | disposition home or self-care (01) ==
PROVIDERS: Internal Medicine Medical Oncology; PCP Family Medicine; Visit Provider Internal Medicine
DX: C50.911 Malignant neoplasm of unspecified site of right female breast (principal); C79.51 Secondary malignant neoplasm of bone
CPT/HCPCS: 36415; 78815; 80053; 85025; 86300; A9552